=== PATIENT | male | born 1950 | race Caucasian/White ===

== ENCOUNTER 2018-01-13 15:47 | Inpatient (IN) ==
[2018-01-13] MEDS ORDERED: NICOTINE POLACRILEX 4 MG BC PRN (19:51)
[2018-01-13] MEDS ORDERED: traMADol 50 MG TABLET PO PRN (19:53)
[2018-01-13] MEDS ORDERED: Naloxone 0.4 MG/ML INJ IVP PRN (19:53)
[2018-01-13] MEDS ORDERED: Acetaminophen 325 MG TABLET PO PRN (19:53)
[2018-01-13] MEDS ORDERED: Dextrose Gel 15 GM/37.5 ML TUBE PO PRN ×2 (19:57)
[2018-01-13] MEDS ORDERED: D5% in Water 1,000 ML IVC PRN (19:57)
[2018-01-13] MEDS ORDERED: Pantoprazole 80 MG in 0.9 % Sodium Chloride 50 ML IVPB ONE (19:57)
[2018-01-13] MEDS ORDERED: *HR* Dextrose 50 % in Water (Syg) 50 ML SYRINGE IVP PRN (19:57)
--- NOTE | 2018-01-13 20:26 | Internal Med History&Physical ---
<Brianna Armas - Last Filed: 01/13/18 21:05> Date of Encounter: 01/13/18 Time of Encounter: 20:10 Internal Medicine - H&P: HPI Admitted From: Home Plans for Post Hospital Care: Home History of present illness: Mr. Sanon is a 67 year old male with past medical history significant for CAD status post CABG, hypertension, hyperlipidemia, diabetes, and COPD transferred from [facility] for multiple complaints. He is a smoker, recently was diagnosed with COPD, and started on steroids and albuterol inhaler by PCP. Today he felt had some trouble breathing, family prompted him to seek medical assistance. At the [facility], his vital signs were found to be stable, however labs revealed severe anemia with hemoglobin 6.6, FOBT positive. troponin was elevated at 1.7. EKG revealed diffused ST-T depression. CT abdomen with IV contrast revealed no acute abnormalities besides a gallbladder stone, diverticulosis,and abdominal aortic aneurysm. He denies fever, chills, cough, chest pain, palpitation, syncope, and lightheadedness. He has no abdominal pain, nausea/vomiting, diarrhea, or bloody stool. He received 1 unit PRBC blood transfusion prior to transferring to [facility] for further management. Upon arrival to this hospital, his vital signs were stable. O2 sats 95% on room air. Stat chest x-ray and labs were ordered. GI and cardio were counseled. Past Med Surg Social Fam HX - Past Medical History Medical history: diabetes, hyperlipidemia, hypertension Psychiatric history: no psych history - Past Surgical History Surgical History: coronary bypass (CABG) - Social History Smoking Status: Former smoker Packs per day: 1 Alcohol use: none Drug use: none - Family History Mother Living Status: Age at : 86 Cause of : [place] Hx Family Cardiac Disorders: Yes Hx Family Respiratory Disorders: No Hx Family Cancer: Yes Hx Family GI Disorders: Yes Hx Family Endocrine Disorder: Yes Hx Family Neurologic Disorders: No Hx Family Medical Disorders: Yes Internal Medicine - H&P: Meds Albuterol Sulfate [Proair Hfa] 1 - 2 puff IH Q4H 01/13/18 [History] Ascorbate Calcium [Vitamin C] 500 mg PO DAILY 01/13/18 [History] Aspirin [Ecotrin] 325 mg PO DAILY 01/13/18 [History] Ferrous Sulfate [Iron] 650 mg PO 3XW 01/13/18 [History] Lisinopril [Zestril] 40 mg PO DAILY 01/13/18 [History] Multivitamin [One Daily Essential] 1 each PO DAILY 01/13/18 [History] Nicotine Patch [Nicoderm] 21 mg TD DAILY 01/13/18 [History] Nicotine Polacrilex [Nicotine Gum] 4 mg BC PRN PRN 01/13/18 [History] [place]-3/Dha/Epa/Fish Oil [Fish Oil [place]-3 EC 1,200 mg] 1 cap PO DAILY 01/13/18 [History] hydroCHLOROthiazide [Hydrochlorothiazide] 25 mg PO DAILY 01/13/18 [History] metFORMIN [Glucophage] 500 mg PO BIDWM 01/13/18 [History] predniSONE [PredniSONE] 20 mg PO DAILY 01/13/18 [History] All Systems PM: A 10-system review of systems was performed and is negative for pertinent findings except as documented above in the HPI. Review of systems: REVIEW OF SYSTEMS: CONSTITUTIONAL: No weight loss, fever, chills, weakness or fatigue. HEENT: Eyes: No visual loss, blurred vision, double vision or yellow sclerae. Ears, Nose, Throat: No hearing loss, sneezing, congestion, runny nose or sore throat. SKIN: No rash or itching. CARDIOVASCULAR: see HPI. RESPIRATORY: see HPI. GASTROINTESTINAL: see HPI. GENITOURINARY: No dysuria, urgency, or frequency. NEUROLOGICAL: No headache, dizziness, syncope, paralysis, ataxia, numbness or tingling in the extremities. No change in bowel or bladder control. MUSCULOSKELETAL: No muscle, back pain, joint pain or stiffness. HEMATOLOGIC: No anemia, bleeding or bruising. LYMPHATICS: No enlarged nodes. No history of splenectomy. PSYCHIATRIC: No history of depression or anxiety. ENDOCRINOLOGIC: No reports of sweating, cold or heat intolerance. No polyuria or polydipsia. - Constitutional Vitals: Temp Pulse Resp BP Pulse Ox 98.2 F 83 15 148/80 93 01/13/18 18:15 01/13/18 18:15 01/13/18 18:15 01/13/18 18:15 01/13/18 18:15 Exam: PHYSICAL EXAMINATION: GENERAL APPEARANCE: The patient is alert, oriented and in no acute distress. HEENT: Head is normocephalic. The sinuses are nontender. Pupils are equal and reactive. The nares are patent. Oropharynx clear without lesions. NECK: Supple without lymphadenopathy. HEART: Regular rate and rhythm. LUNGS: No crackles or wheezes are heard. ABDOMEN: Soft, nontender, nondistended with good bowel sounds heard. Inguinal area is normal. EXTREMITIES: Without cyanosis, clubbing or edema. NEUROLOGICAL: Gross nonfocal. SKIN: Warm and dry without any rash. Internal Med - H&P Results - Labs CBC & Chem 7: 01/13/18 20:16 01/13/18 20:16 - Assessment and plan (1) NSTEMI (non-ST elevated myocardial infarction) Current Visit: Yes Status: Acute Assessment and plan: - Hx CAD status post CABG about 20 years ago, risk factors including hypertension, hyperlipidemia, diabetes, and smoking. - EKG revealed diffuse ST-T depression, troponin was significantly elevated. - Given severe anemia, it is likely type II [place] due to demand/supply mismatch, however underlying severe coronary artery disease could also coexisted and contributed to. - add Metoprolol, control BP, transfuse if Hgb<8. Nitro PRN for chest pain, EKG as needed. - Hold Asa, and heparin gtt not started due to GI bleeding. - Cardiology consulted, appreciate help. (2) GI bleeding Current Visit: Yes Status: Acute Assessment and plan: - Stool positive for occult blood. Reveived one unit PRBC at outside hospital. - PPI with IV protonix started. NPO after midnight. - H/H q6h, transfuse if hgb <6. - GI consult, appreciate help. Qualifiers: GI bleed type/associated pathology: unspecified gastrointestinal hemorrhage type Qualified Code(s): K92.2 - Gastrointestinal hemorrhage, unspecified (3) Severe anemia Current Visit: Yes Status: Acute Assessment and plan: - see above. (4) CKD (chronic kidney disease) Current Visit: No Status: Chronic Assessment and plan: - unknown baseline Cr. will monitor. Qualifiers: Chronic kidney disease stage: stage 3 (moderate) Qualified Code(s): N18.3 - Chronic kidney disease, stage 3 (moderate) (5) HTN (hypertension) Current Visit: No Status: Chronic Assessment and plan: - Continue home meds, add BB, monitor BP and adjust dose if indicated. Qualifiers: Hypertension type: essential hypertension Qualified Code(s): I10 - Essential (primary) hypertension (6) Hyperlipidemia Current Visit: No Status: Chronic Assessment and plan: - continue home meds. Qualifiers: Hyperlipidemia type: unspecified Qualified Code(s): E78.5 - Hyperlipidemia , unspecified (7) Diabetes mellitus Current Visit: No Status: Chronic Assessment and plan: - Hold Metformin, add insulin SS. Qualifiers: Diabetes mellitus type: type 2 Diabetes mellitus intermediate accountant insulin use: without detention use Diabetes mellitus complication status: with unspecified complications Qualified Code(s): E11.8 - Type 2 diabetes mellitus with unspecified complications (8) COPD (chronic obstructive pulmonary disease) Current Visit: No Status: Chronic Assessment and plan: - continue home meds. Qualifiers: COPD type: unspecified COPD Qualified Code(s): J44.9 - Chronic obstructive pulmonary disease, unspecified (9) CAD (coronary artery disease) Current Visit: No Status: Chronic Assessment and plan: - Hold asa for GI bleeding. - see above. Qualifiers: Coronary Disease-Associated Artery/Lesion type: bypass graft [place] vs. transplanted heart: [place] heart Associated angina: without angina Qualified Code(s): I25.810 - Atherosclerosis of coronary artery bypass graft(s) without angina pectoris - Time Spent With Patient Total time spent is greater than 50% in coordination of care (as documented) at patient's floor/unit and/or counseling patient: Greater than 35 minutes <Audrey Baird - Last Filed: 01/13/18 23:03> Date of Encounter: 01/13/18 Internal Medicine - H&P: HPI History of present illness: Mr. Sanon is a 67 year old male All Systems PM: A 10-system review of systems was performed and is negative for pertinent findings except as documented above in the HPI. - Constitutional Vitals: Temp Pulse Resp BP Pulse Ox 98.1 F 77 18 132/67 95 01/13/18 18:50 01/13/18 18:50 01/13/18 20:46 01/13/18 18:50 01/13/18 20:46 Internal Med - H&P Results - Labs CBC & Chem 7: 01/13/18 21:27 01/13/18 20:16 Labs: Short CBC 01/13/18 01/13/18 Range/Units 20:16 21:27 WBC 16.1 H (4.3-11.1) K/mcL Hgb 7.5 L 7.0 L (12.9-16.9) g/dL Hct 23.2 L 21.8 L (37.5-50.1) % Plt Count 327 (140-400) K/mcL BMP 01/13/18 20:16 Sodium 131 L Potassium 4.5 Chloride 96 L Carbon Dioxide 26 BUN 53 H Creatinine 1.89 H Glucose 198 H Calcium 8.9 Cardiac Enzymes 01/13/18 Range/Units 20:16 Troponin I 2.15 H* (< 0.04) ng/mL - Impressions ITS Impressions Chest X-Ray 01/13/18 19:50 IMPRESSION: 1. Cardiomegaly. 2. Calcific atherosclerosis aorta. 3. Scar or subsegmental atelectasis medial left lung base. 4. Status post CABG. D/ / Raj Ho / Raj Ho Interpreting Provider: Raj Ho - Attending Attestation I have personally performed a face to face evaluation on this patient. I have reviewed and agree with the care plan provided by MOO Armas . History and Exam by me shows: Mr. Sanon is a 67 year old male with past medical history significant for CAD status post CABG, hypertension, hyperlipidemia, diabetes, and COPD transferred from [facility] with severe anemia, GI bleed and elevated troponin. He denied any CP. 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 Gen: A, A, O X 3 Chest: Diminished BS b/l Heart: S1S2 + RRR No murmurs Abd: Soft, NT a/p 1. Acute anemia - blood loss 2. Acute possible upper GI Bleed transfuse 2 U PRBC Lasix in between close monitor Hb PPI BID Scheduled for EGD in AM 3. Acute NSTEMI due to demand ischemia unable to start pt on Heparin due to anemia, GI bleed Held ASA too Card consulted on BB, ACEI - Assessment and plan (1) Severe anemia Current Visit: Yes Status: Acute (2) CKD (chronic kidney disease) Current Visit: No Status: Chronic Qualifiers: Chronic kidney disease stage: stage 3 (moderate) Qualified Code(s): N18.3 - Chronic kidney disease, stage 3 (moderate) (3) HTN (hypertension) Current Visit: No Status: Chronic Qualifiers: Hypertension type: essential hypertension Qualified Code(s): I10 - Essential (primary) hypertension (4) Diabetes mellitus Current Visit: No Status: Chronic Qualifiers: Diabetes mellitus type: type 2 Diabetes mellitus intermediate accountant insulin use: without intermediate accountant use Diabetes mellitus complication status: with unspecified complications Qualified Code(s): E11.8 - Type 2 diabetes mellitus with unspecified complications (5) COPD (chronic obstructive pulmonary disease) Current Visit: No Status: Acute Qualifiers: COPD type: unspecified COPD Qualified Code(s): J44.9 - Chronic obstructive pulmonary disease, unspecified (6) CAD (coronary artery disease) Current Visit: No Status: Chronic Qualifiers: Coronary Disease-Associated Artery/Lesion type: bypass graft [place] vs. transplanted heart: [place] heart Associated angina: without angina Qualified Code(s): I25.810 - Atherosclerosis of coronary artery bypass graft(s) without angina pectoris (7) Abdominal aortic aneurysm Current Visit: Yes Status: Chronic Qualifiers: Qualified Code(s): I71.4 - Abdominal aortic aneurysm, without rupture (8) Cholelithiasis Current Visit: Yes Status: Chronic Qualifiers: Qualified Code(s): K80.20 - Calculus of gallbladder without cholecystitis without obstruction - Time Spent With Patient Total time spent is greater than 50% in coordination of care (as documented) at patient's floor/unit and/or counseling patient:
[2018-01-13 20:28] LABS: Hematocrit 23.2 % (37.5-50.1); Hemoglobin 7.5 g/dL (12.9-16.9); Mean Corpuscular HGB Conc 32.3 g/dL (31.6-35.5); Mean Corpuscular Volume 89.6 fL (83.0-100.0); Mean Platelet Volume 10.7 fL (9.4-12.4); Platelet Count 327 K/mcL (140-400); Red Blood Count 2.59 M/mcL (4.19-5.50); Red Cell Distribution Width 14.3 % (11.5-14.5)
[2018-01-13 20:48] LABS: Calcium 8.9 mg/dL (8.6-10.3); Chol/HDL Ratio 2.8 (0-4.9); Potassium 4.5 mEq/L (3.5-5.1)
[2018-01-13] MEDS ORDERED: Nitroglycerin 0.4 MG TAB.SUBL SL PRN (20:53)
[2018-01-13] MEDS: Nicotine 21 MG PATCH.TD24 TD SCH (21:19)
--- NOTE | 2018-01-13 21:38 | Internal Medicine Consult Note ---
Date of Encounter: 01/13/18 Time of Encounter: 21:35 - Assessment and Plan (1) Severe anemia Current Visit: Yes Status: Acute Assessment and plan: He reports being able to give blood within the last month, therefore I suspect this drop in hemoglobin is somewhat acute. I am concerned that the diarrhea and crampiness was actually melena and blood moving through the lower GI tract. Risk factors for bleeding to include aspirin therapy and taking fish oil. Certainly this could be ulcer disease as the most worrisome potential differential at this time. AVMs are less likely. Plan is to provide upper endoscopy in the morning with risks and benefits being discussed today, he has signed consent. If that is negative he will need colonoscopy. I do agree with transfusions at least above 8 given some mild troponin elevation which is more consistent with ischemic demand than true infarction. Do agree with current PPI therapy (2) CAD (coronary artery disease) Current Visit: No Status: Chronic Qualifiers: Coronary Disease-Associated Artery/Lesion type: bypass graft [place] vs. transplanted heart: [place] heart Associated angina: without angina Qualified Code(s): I25.810 - Atherosclerosis of coronary artery bypass graft(s) without angina pectoris (3) CKD (chronic kidney disease) Current Visit: No Status: Chronic Assessment and plan: It is possible that some of the anemia is a result of some chronic kidney disease. We have no previous labs on him, we will have to see over time his creatinine does. Qualifiers: Chronic kidney disease stage: stage 3 (moderate) Qualified Code(s): N18.3 - Chronic kidney disease, stage 3 (moderate) (4) COPD (chronic obstructive pulmonary disease) Current Visit: No Status: Acute Assessment and plan: Does require beta agonist, pulmonary toilet while here. Qualifiers: COPD type: unspecified COPD Qualified Code(s): J44.9 - Chronic obstructive pulmonary disease, unspecified (5) Diabetes mellitus Current Visit: No Status: Chronic Qualifiers: Diabetes mellitus type: type 2 Diabetes mellitus fpc insulin use: without fpc use Diabetes mellitus complication status: with unspecified complications Qualified Code(s): E11.8 - Type 2 diabetes mellitus with unspecified complications (6) HTN (hypertension) Current Visit: No Status: Chronic Qualifiers: Hypertension type: essential hypertension Qualified Code(s): I10 - Essential (primary) hypertension (7) Abdominal aortic aneurysm Current Visit: Yes Status: Chronic Qualifiers: Qualified Code(s): I71.4 - Abdominal aortic aneurysm, without rupture (8) Cholelithiasis Current Visit: Yes Status: Chronic Qualifiers: Qualified Code(s): K80.20 - Calculus of gallbladder without cholecystitis without obstruction Internal Medicine - CN: HPI - Data of Consult Patient: new to practice Consult date: 01/13/18 Requesting Physician: Sly Ramos DO - Consult Narrative Reason for consult: Anemia, possible GI Bleeding History of present illness: Mr. Sanon is a 67 year old male currently being seen for consultation from the hospitalist service. This gentleman presented from [facility] today with elevated troponin, along with significant anemia. He admits about a 4 days ago having a bout of significant lower abdominal cramping and diarrhea, he is color blind, cannot see if it was bloody or black and tarry. This lasted all morning, he subsequently felt better until today were the same thing happened and reported to [facility]. He admits having some lightheadedness but no near-syncope or syncope no diaphoresis. He does admit that he and his doctor in the last 5 days have recently been working on his new diagnosis of COPD and from a breathing standpoint feeling much better with what appears to be an inhaled beta agonist. He has not had previous upper or lower endoscopy. He admits 3 months ago having a negative Cologuard test. No nausea, or vomiting. No reflux, no nonsteroidal usage and no alcohol use. His weight has been stable Past Med Surg Social Fam HX - Past Medical History Medical history: COPD, coronary artery disease, diabetes, hyperlipidemia, hypertension Psychiatric history: no psych history - Past Surgical History Surgical History: coronary bypass (CABG) - Social History Smoking Status: Former smoker Packs per day: 1 Alcohol use: none Drug use: none - Family History Mother Living Status: Age at : 86 Cause of : [place] Hx Family Cardiac Disorders: Yes Hx Family Respiratory Disorders: No Hx Family Cancer: Yes Hx Family GI Disorders: Yes Hx Family Endocrine Disorder: Yes Hx Family Neurologic Disorders: No Hx Family Medical Disorders: Yes Father Adopted: No Living Status: Cause of : Heart disease - Constitutional Constitutional: no anorexia, no chills, no fatigue, no fever(s), no falls - Cardiovascular Cardiovascular ROS IM: dyspnea on exertion, lightheadedness, no chest pain, no diaphoresis, no irregular heart rhythm, no syncope - Respiratory Respiratory: cough, wheezing, chest congestion, no hemoptysis, no pain with cough - Gastrointestinal Gastrointestinal: abdominal pain, bloating, cramping, diarrhea, loose stools, no heartburn, no nausea, no vomiting - Musculoskeletal Musculoskeletal ROS IM: no arthralgias, no muscle cramps, no muscle weakness - Neurological Neurological ROS: no abnormal gait, no focal weakness, no memory loss, no weakness Internal Medicine - CN: Meds Albuterol Sulfate [Proair Hfa] 1 - 2 puff IH Q4H 01/13/18 [History] Ascorbate Calcium [Vitamin C] 500 mg PO DAILY 01/13/18 [History] Aspirin [Ecotrin] 325 mg PO DAILY 01/13/18 [History] Ferrous Sulfate [Iron] 650 mg PO 3XW 01/13/18 [History] Lisinopril [Zestril] 40 mg PO DAILY 01/13/18 [History] Multivitamin [One Daily Essential] 1 each PO DAILY 01/13/18 [History] Nicotine Patch [Nicoderm] 21 mg TD DAILY 01/13/18 [History] Nicotine Polacrilex [Nicotine Gum] 4 mg BC PRN PRN 01/13/18 [History] [place]-3/Dha/Epa/Fish Oil [Fish Oil [place]-3 EC 1,200 mg] 1 cap PO DAILY 01/13/18 [History] hydroCHLOROthiazide [Hydrochlorothiazide] 25 mg PO DAILY 01/13/18 [History] metFORMIN [Glucophage] 500 mg PO BIDWM 01/13/18 [History] predniSONE [PredniSONE] 20 mg PO DAILY 01/13/18 [History] 3 Allergy/AdvReac Type Severity Reaction Status Date / Time No Known Allergies Allergy Verified 01/13/18 21:28 Internal Medicine - CN: Exam - Constitutional Vitals: Temp Pulse Resp BP Pulse Ox 98.1 F 77 18 132/67 95 01/13/18 18:50 01/13/18 18:50 01/13/18 20:46 01/13/18 18:50 01/13/18 20:46 General appearance IM: Present: A&O X 3, pleasant, no acute distress, obese, answers questions appropriately. Absent: loss of weight - Eye Eye exam: Present: PERRL, conjuntiva pink, sclera anicteric - ENT ENT exam: Present: mucous membranes moist - Neck Neck exam general surgery: Present: full ROM, supple, trachea midline - Respiratory Respiratory exam: Present: decreased breath sounds, prolonged expiratory phase, rhonchi, wheezes Additional comments: Peripheral of the lungs with some CHANGE mild expiratory wheeze, no tachypnea. - Cardiovascular Cardiovascular exam IM: Present: RRR, +S1, +S2. Absent: JVD, systolic murmur, tachycardia - GI/Abdominal GI/Abdominal exam IM: Present: normal bowel sounds, soft, no peritoneal signs. Absent: rebound, rigid, splenomegaly, tenderness - Rectal Rectal exam: Present: deferred Internal Medicine - CN: Reslt - Labs CBC & Chem 7: 01/13/18 20:16 01/13/18 20:16 Labs: Short CBC 01/13/18 Range/Units 20:16 WBC 16.1 H (4.3-11.1) K/mcL Hgb 7.5 L (12.9-16.9) g/dL Hct 23.2 L (37.5-50.1) % Plt Count 327 (140-400) K/mcL BMP 01/13/18 20:16 Sodium 131 L Potassium 4.5 Chloride 96 L Carbon Dioxide 26 BUN 53 H Creatinine 1.89 H Glucose 198 H Calcium 8.9 Cardiac Enzymes 01/13/18 Range/Units 20:16 Troponin I 2.15 H* (< 0.04) ng/mL - Impressions Impressions Chest X-Ray 01/13/18 19:50 IMPRESSION: 1. Cardiomegaly. 2. Calcific atherosclerosis aorta. 3. Scar or subsegmental atelectasis medial left lung base. 4. Status post CABG. D/ / Raj Ho / Raj Ho Interpreting Provider: Raj Ho Consult Discharge Plan - Plan Referrals: Lazaro Panda DO [Primary Care Provider] -
[2018-01-13 21:40] LABS: Hematocrit 21.8 % (37.5-50.1)
[2018-01-13] MEDS: Insulin LISPRO 300 UNITS/3 ML VIAL SQ SCH ×2 (21:47)
[2018-01-13] MEDS ORDERED: Furosemide 20 MG/2 ML VIAL IVP ONE (22:06)
[2018-01-14] MEDS ORDERED: 0.9 % Sodium Chloride 500 ML ONE (00:01)
[2018-01-14 05:06] LABS: Hemoglobin 8.1 g/dL (12.9-16.9)
[2018-01-14] MEDS: Pantoprazole 40 MG VIAL IVP SCH ×2 (06:25→16:55)
[2018-01-14 08:33] LABS: Basophils % 0.1 %; Eosinophils % 0.3 %; Hematocrit 25.1 % (37.5-50.1); Hemoglobin 8.2 g/dL (12.9-16.9); Immature Granulocytes % 0.8 % (0-4); Lymphocytes # 1.2 K/mcL (0.6-4.6); Mean Corpuscular HGB Conc 32.7 g/dL (31.6-35.5); Mean Corpuscular Hemoglobin 29.6 pg (28.0-33.3); Mean Corpuscular Volume 90.6 fL (83.0-100.0); Monocytes # 1.3 K/mcL (0.0-1.3); Monocytes % 9.7 %; Neutrophils # 10.7 K/mcL (1.6-8.9); Nucleated Red Blood Cells 0.1 /100 WBC (0); Platelet Count 303 K/mcL (140-400); Red Blood Count 2.77 M/mcL (4.19-5.50); Red Cell Distribution Width 14.3 % (11.5-14.5); Segmented Neutrophils % 80.1 %
[2018-01-14 08:38] LABS: Calcium 8.4 mg/dL (8.6-10.3); Magnesium 1.9 mg/dL (1.6-2.6); Potassium 4.2 mEq/L (3.5-5.1)
[2018-01-14 08:53] LABS: Troponin I 2.74 ng/mL (< 0.04)
[2018-01-14] MEDS ORDERED: predniSONE 20 MG TABLET PO SCH (09:00)
[2018-01-14] MEDS ORDERED: hydroCHLOROthiazide 25 MG TABLET PO SCH (09:00)
[2018-01-14] MEDS: Insulin LISPRO 300 UNITS/3 ML VIAL SQ SCH ×4 (09:06→21:26)
[2018-01-14] MEDS: Nicotine 21 MG PATCH.TD24 TD SCH (09:12)
[2018-01-14] MEDS: Lisinopril 20 MG TABLET PO SCH (09:12)
[2018-01-14] MEDS: Multivit/Ca/Min/Fe/FA 1 TAB TABLET PO SCH (09:12)
[2018-01-14] MEDS: Ascorbic Acid 500 MG TABLET PO SCH (09:12)
[2018-01-14] MEDS: FISH OIL PO SCH (09:20)
[2018-01-14] MEDS: OMEGA PO SCH (09:20)
[2018-01-14] MEDS: EPA PO SCH (09:20)
[2018-01-14] MEDS: DHA PO SCH (09:20)
[2018-01-14] MEDS ORDERED: *HR* Midazolam HCl 5 MG/5 ML VIAL IVP ONE ×2 (10:51→11:11)
[2018-01-14] MEDS ORDERED: *HR* FentaNYL (PF) 100 MCG/2 ML VIAL ONE (10:51)
[2018-01-14] MEDS ORDERED: Tetracaine/Benzocaine/Butamben 200MG/SPRAY (100SPY/BOT) MM ONE (11:11)
[2018-01-14] MEDS ORDERED: *HR* FentaNYL (PF) 100 MCG/2 ML VIAL IVP ONE (11:11)
[2018-01-14] MEDS ORDERED: Simethicone 40 MG/0.6 ML MLS IR ONE (11:11)
--- NOTE | 2018-01-14 11:11 | Pre-Sedation Evaluation ---
Pre-sedation evaluation - Pre-sedation checklist Date of procedure: 01/14/18 Procedure: EGD Recent Vitals: Last Vital Signs Temp 98.1 F 01/14/18 10:48 Pulse 62 01/14/18 10:48 Resp 16 01/14/18 10:48 BP 135/59 01/14/18 10:48 Pulse Ox 98 01/14/18 10:45 H&P (including ROS) documented in medical record: Yes Previous reaction to sedatives/anesthetics: No Dietary Status: NPO after Midnight Dentition: No loose teeth or bridges Possible difficult airway: No ASA Classification *see protocol: CLASS III-Severe systemic disease
--- NOTE | 2018-01-14 11:44 | Internal Medicine Consult Note ---
Date of Encounter: 01/14/18 Time of Encounter: 11:42 - Assessment and Plan (1) Duodenal ulcer Current Visit: Yes Status: Acute Assessment and plan: Will cont. PPI and start Carafate. High suspicion of H. Pylori. Will await pathology and ABRIL test. Ulcer base biopsied. Would hold ASA still at this time Will start Iron therapy. (2) Severe anemia Current Visit: Yes Status: Acute (3) CAD (coronary artery disease) Current Visit: No Status: Chronic Qualifiers: Coronary Disease-Associated Artery/Lesion type: bypass graft [place] vs. transplanted heart: [place] heart Associated angina: without angina Qualified Code(s): I25.810 - Atherosclerosis of coronary artery bypass graft(s) without angina pectoris (4) CKD (chronic kidney disease) Current Visit: No Status: Chronic Qualifiers: Chronic kidney disease stage: stage 3 (moderate) Qualified Code(s): N18.3 - Chronic kidney disease, stage 3 (moderate) (5) COPD (chronic obstructive pulmonary disease) Current Visit: No Status: Acute Qualifiers: COPD type: unspecified COPD Qualified Code(s): J44.9 - Chronic obstructive pulmonary disease, unspecified (6) Diabetes mellitus Current Visit: No Status: Chronic Qualifiers: Diabetes mellitus type: type 2 Diabetes mellitus custodial insulin use: without intermediate school teacher use Diabetes mellitus complication status: with unspecified complications Qualified Code(s): E11.8 - Type 2 diabetes mellitus with unspecified complications (7) HTN (hypertension) Current Visit: No Status: Chronic Qualifiers: Hypertension type: essential hypertension Qualified Code(s): I10 - Essential (primary) hypertension (8) Abdominal aortic aneurysm Current Visit: Yes Status: Chronic Qualifiers: Qualified Code(s): I71.4 - Abdominal aortic aneurysm, without rupture (9) Cholelithiasis Current Visit: Yes Status: Chronic Qualifiers: Qualified Code(s): K80.20 - Calculus of gallbladder without cholecystitis without obstruction (10) Blood loss anemia Current Visit: Yes Status: Acute Internal Medicine - CN: HPI - Data of Consult Requesting Physician: Mer John MD - Consult Narrative History of present illness: Mr. Sanon is a 67 year old male Past Med Surg Social Fam HX - Past Medical History Medical history: COPD, coronary artery disease, diabetes, hyperlipidemia, hypertension Psychiatric history: no psych history - Past Surgical History Surgical History: coronary bypass (CABG) - Social History Smoking Status: Former smoker Packs per day: 1 Alcohol use: none Drug use: none - Family History Mother Living Status: Age at : 86 Cause of : [place] Hx Family Cardiac Disorders: Yes Hx Family Respiratory Disorders: No Hx Family Cancer: Yes Hx Family GI Disorders: Yes Hx Family Endocrine Disorder: Yes Hx Family Neurologic Disorders: No Hx Family Medical Disorders: Yes Father Adopted: No Living Status: Cause of : Heart disease Internal Medicine - CN: Meds Albuterol Sulfate [Proair Hfa] 1 - 2 puff IH Q4H 01/13/18 [History] Ascorbate Calcium [Vitamin C] 500 mg PO DAILY 01/13/18 [History] Aspirin [Ecotrin] 325 mg PO DAILY 01/13/18 [History] Ferrous Sulfate [Iron] 650 mg PO 3XW 01/13/18 [History] Lisinopril [Zestril] 40 mg PO DAILY 01/13/18 [History] Multivitamin [One Daily Essential] 1 each PO DAILY 01/13/18 [History] Nicotine Patch [Nicoderm] 21 mg TD DAILY 01/13/18 [History] Nicotine Polacrilex [Nicotine Gum] 4 mg BC PRN PRN 01/13/18 [History] [place]-3/Dha/Epa/Fish Oil [Fish Oil [place]-3 EC 1,200 mg] 1 cap PO DAILY 01/13/18 [History] hydroCHLOROthiazide [Hydrochlorothiazide] 25 mg PO DAILY 01/13/18 [History] metFORMIN [Glucophage] 500 mg PO BIDWM 01/13/18 [History] predniSONE [PredniSONE] 20 mg PO DAILY 01/13/18 [History] Atorvastatin [Lipitor] 40 mg PO HS 01/14/18 [History] 3 Allergy/AdvReac Type Severity Reaction Status Date / Time No Known Allergies Allergy Verified 01/13/18 21:28 Internal Medicine - CN: Exam - Constitutional Vitals: Temp Pulse Resp BP Pulse Ox 98.1 F 71 18 150/71 98 01/14/18 11:33 01/14/18 11:33 01/14/18 11:33 01/14/18 11:33 01/14/18 11:33 Internal Medicine - CN: Reslt - Labs CBC & Chem 7: 01/14/18 07:54 01/14/18 07:54 Labs: Short CBC 01/13/18 01/13/18 01/14/18 Range/Units 20:16 21:27 04:38 WBC 16.1 H (4.3-11.1) K/mcL Hgb 7.5 L 7.0 L 8.1 L (12.9-16.9) g/dL Hct 23.2 L 21.8 L 25.0 L (37.5-50.1) % Plt Count 327 (140-400) K/mcL Neutrophils # (1.6-8.9) K/mcL 01/14/18 Range/Units 07:54 WBC 13.4 H (4.3-11.1) K/mcL Hgb 8.2 L (12.9-16.9) g/dL Hct 25.1 L (37.5-50.1) % Plt Count 303 (140-400) K/mcL Neutrophils # 10.7 H (1.6-8.9) K/mcL BMP 01/13/18 01/14/18 20:16 07:54 Sodium 131 L 135 L Potassium 4.5 4.2 Chloride 96 L 97 L Carbon Dioxide 26 33 H BUN 53 H 50 H Creatinine 1.89 H 1.93 H Glucose 198 H 161 H Calcium 8.9 8.4 L Cardiac Enzymes 01/13/18 01/14/18 01/14/18 Range/Units 20:16 00:31 04:38 Troponin I 2.15 H* 2.38 H* 3.09 H* (< 0.04) ng/mL 01/14/18 Range/Units 07:54 Troponin I 2.74 H* (< 0.04) ng/mL - Impressions Impressions Chest X-Ray 01/13/18 19:50 IMPRESSION: 1. Cardiomegaly. 2. Calcific atherosclerosis aorta. 3. Scar or subsegmental atelectasis medial left lung base. 4. Status post CABG. D/ / Raj Ho / Raj Ho Interpreting Provider: Raj Ho Consult Discharge Plan - Plan Referrals: Lazaro Panda DO [Primary Care Provider] -
[2018-01-14] MEDS: Sucralfate 1 GM TABLET PO SCH ×3 (12:41→21:19)
[2018-01-14 13:02] LABS: Hematocrit 24.9 % (37.5-50.1)
[2018-01-14 15:30] LABS: Hematocrit 25.7 % (37.5-50.1); Hemoglobin 8.2 g/dL (12.9-16.9)
--- NOTE | 2018-01-14 15:40 | Cardiology Consult Note ---
<Silvio Horan - Last Filed: 01/14/18 15:44> Date of Encounter: 01/14/18 Time of Encounter: 15:39 Assessment and Plan (1) NSTEMI (non-ST elevated myocardial infarction) Current Visit: Yes Status: Acute Troponin elevation up to 3.09 in the setting of GI bleed. NSTEMI vs type II [place]. Currently not a candidate for invasive evaluation with acute GI bleed. Check TTE. Possible LHC when stable from bleeding and renal standpoint. No previous labs to compare kidney function. Denies history of CAD. No heparin gtt due to bleeding. Start asa when felt to be safe from bleeding standpoint. Continue statin and bb. (2) GI bleeding Current Visit: Yes Status: Acute EGD shows non-bleeding duodenal ulcer. Hgb 6.8 on admit. s/p 1 unit PRBC. Hgb 8.2. Patient reports taking up to 10 aspirins a day for arthritis pain. Recommended to take tylenol for pain. Hospitalist following. Qualifiers: GI bleed type/associated pathology: unspecified gastrointestinal hemorrhage type Qualified Code(s): K92.2 - Gastrointestinal hemorrhage, unspecified (3) CAD (coronary artery disease) Current Visit: No Status: Chronic H/o remote CABG. No recent work-up. WIll consider LHC during his stay. Qualifiers: Coronary Disease-Associated Artery/Lesion type: bypass graft [place] vs. transplanted heart: [place] heart Associated angina: without angina Qualified Code(s): I25.810 - Atherosclerosis of coronary artery bypass graft(s) without angina pectoris Discussion w patient/family: The assessment and plan as outlined above was discussed with the patient and/or family members who expressed understanding and agreement. All questions were answered. Thank you for involving us in the care of your patient. Please call with any questions. History of Present Illness Consult date: 01/14/18 Requesting physician: Mer John Consult reason: NSTEMI Chief complaint: diarrhea, weakness, SOB History of present illness: Mr. Sanon is a 67 year old male with past medical history of CAD s/p CABG, HTN, HLD, DM type II, and COPD who presented with increasing weakness and SOB. he was found to have HGB 6.8. Hgb 14 three weeks ago when he donated blood. He did notice diarrhea over the past week. 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 This morning he underwent upper endoscopy and was found to have a duodenal ulcer with no stigmata of bleeding. Cardiology consulted for elevated troponin. He denies chest pain. He reports over the past six months he noticed increasing dyspnea on exertion. States he was unofficially diagnosed with COPD. Denies recent cardiac work-up. Past Med Surg Social Fam HX - Past Medical History Medical history: COPD, coronary artery disease, diabetes, hyperlipidemia, hypertension Psychiatric history: no psych history - Past Surgical History Surgical History: coronary bypass (CABG) - Social History Smoking Status: Former smoker Packs per day: 1 Alcohol use: none Drug use: none - Family History Mother Living Status: Age at : 86 Cause of : [place] Hx Family Cardiac Disorders: Yes Hx Family Respiratory Disorders: No Hx Family Cancer: Yes Hx Family GI Disorders: Yes Hx Family Endocrine Disorder: Yes Hx Family Neurologic Disorders: No Hx Family Medical Disorders: Yes Father Adopted: No Living Status: Cause of : Heart disease Medications and Allergies Albuterol Sulfate [Proair Hfa] 1 - 2 puff IH Q4H 01/13/18 [History] Ascorbate Calcium [Vitamin C] 500 mg PO DAILY 01/13/18 [History] Aspirin [Ecotrin] 325 mg PO DAILY 01/13/18 [History] Ferrous Sulfate [Iron] 650 mg PO 3XW 01/13/18 [History] Lisinopril [Zestril] 40 mg PO DAILY 01/13/18 [History] Multivitamin [One Daily Essential] 1 each PO DAILY 01/13/18 [History] Nicotine Patch [Nicoderm] 21 mg TD DAILY 01/13/18 [History] Nicotine Polacrilex [Nicotine Gum] 4 mg BC PRN PRN 01/13/18 [History] [place]-3/Dha/Epa/Fish Oil [Fish Oil [place]-3 EC 1,200 mg] 1 cap PO DAILY 01/13/18 [History] hydroCHLOROthiazide [Hydrochlorothiazide] 25 mg PO DAILY 01/13/18 [History] metFORMIN [Glucophage] 500 mg PO BIDWM 01/13/18 [History] predniSONE [PredniSONE] 20 mg PO DAILY 01/13/18 [History] Atorvastatin [Lipitor] 40 mg PO HS 01/14/18 [History] 3 Allergy/AdvReac Type Severity Reaction Status Date / Time No Known Allergies Allergy Verified 01/13/18 21:28 All Systems Review: The remainder of the systems were reviewed and are negative Physical Examination Vital Signs, Last 4 Hours Temp Pulse Resp BP Pulse Ox 01/14/18 15:17 97.8 F 60 15 138/62 95 01/14/18 12:30 97.8 F 60 15 107/45 91 General: Conversant, No Apparent Distress, Other (Skin cool and moist) HEENT: Atraumatic, Normocephaly, Mucus Membranes Moist Neck: No JVD, Normal carotid pulses Cardiac: Reg Rate and Rhythm, Normal S1 and S2, No Murmur Lungs: Normal Breath Sounds, No Wheeze, Rales, Rhonchi Neuro: Alert and responsive, No focal deficits noted Abdomen: Soft, Non-Tender Skin: No rashes noted on visualized skin Musculoskeletal: No Chest Wall Tenderness Extremities: No Clubbing, No Cyanosis, Normal Pulses, Other (2+ ankle edema noted.) Results 01/14/18 12:15 01/14/18 07:54 Lab Results 01/13/18 01/13/18 01/13/18 20:16 20:16 20:16 WBC 16.1 H Hgb 7.5 L Hct 23.2 L Plt Count 327 Sodium 131 L Potassium 4.5 Chloride 96 L Carbon Dioxide 26 BUN 53 H Creatinine 1.89 H Glucose 198 H Calcium 8.9 Magnesium Troponin I 2.15 H* B-Natriuretic Peptide 01/13/18 01/13/18 01/13/18 20:16 20:16 21:27 WBC Hgb 7.0 L Hct 21.8 L Plt Count Sodium Potassium Chloride Carbon Dioxide BUN Creatinine Glucose Calcium Magnesium 2.0 Troponin I B-Natriuretic Peptide 276 H 01/14/18 01/14/18 01/14/18 00:31 04:38 04:38 WBC Hgb 8.1 L Hct 25.0 L Plt Count Sodium Potassium Chloride Carbon Dioxide BUN Creatinine Glucose Calcium Magnesium Troponin I 2.38 H* 3.09 H* B-Natriuretic Peptide 01/14/18 01/14/18 01/14/18 07:54 07:54 12:15 WBC 13.4 H Hgb 8.2 L 8.0 L Hct 25.1 L 24.9 L Plt Count 303 Sodium 135 L Potassium 4.2 Chloride 97 L Carbon Dioxide 33 H BUN 50 H Creatinine 1.93 H Glucose 161 H Calcium 8.4 L Magnesium 1.9 Troponin I 2.74 H* B-Natriuretic Peptide - Imaging and Cardiology Echo: pending - EKG Interpretation EKG results cardiology: personally reviewed (Sr with poor R wave progression. ST depression in the inferior and anteriolateral leads noted.) Consult Discharge Plan - Plan Referrals: Lazaro Panda, [Primary Care Provider] - <AugustBruno Luann - Last Filed: 01/15/18 10:21> Date of Encounter: 01/14/18 Time of Encounter: 17:30 - Attending Attestation #1 I have personally performed a face to face evaluation on this patient. I have reviewed and agree with the care plan. History and Exam by me shows: CC: fatigue, diarrhea, shortness of breath Pt reports five or six day history of increasing fatigue with exertion. Pt reports felt fine at rest, however became very tired with minimal exertion. He reports has had to rest with normal daily activities the last several days. HE also ecomes very short of breath with minimal exertionl. He was able to perform normal daily activities without complaint one week ago. He also reports smelly diarrhea over last several days. PMH: reviewed, includes CAD post CABG, COPD, type II diabetes, hyperlipidemia, hypertension and tobacco abuse. PE: Agree with above, with exception of mild epigastric tenderness to deep palpation, mild bilat basilar exp wheezes. IMP; 1. Acute GI bleed secondary to confirmed duodenal ulcer on EGD, bleeding likely cause of diarrhea, 2. Severe Anemia due to #1, lowest HB 6.8, has received transfusion to 8.2 3. Elevated troponin, multifactorial, due to part to demand ischemia with severe anemia, poor renal clearance with acute on chronic renal insuff, will need ischemic eval before discharge, not a candidate for anticoagulation at present 4. CAD - severe triple vessel CAD post CABG REC: 1. echocardiogram to eval EF, subsegmental wall motion abnormalities. 2. Resume ASA with 325 mg loading dose, continue at 81 mg q d when OK with GI. 3, will follow with you, further recs pending trending troponin, echo results. Assessment and Plan Discussion w patient/family: The assessment and plan as outlined above was discussed with the patient and/or family members who expressed understanding and agreement. All questions were answered. Thank you for involving us in the care of your patient. Please call with any questions. History of Present Illness History of present illness: Mr. Sanon is a 67 year old male All Systems Review: The remainder of the systems were reviewed and are negative Physical Examination Vital Signs, Last 4 Hours Temp Pulse Resp BP Pulse Ox 01/15/18 07:59 97.9 F 82 15 135/71 94 01/15/18 07:56 20 95 Results 01/15/18 03:05 01/14/18 07:54 Lab Results 01/14/18 01/14/18 01/14/18 12:15 14:42 21:00 Hgb 8.0 L 8.2 L 7.7 L Hct 24.9 L 25.7 L 24.6 L 01/15/18 03:05 Hgb 7.7 L Hct 24.2 L
--- NOTE | 2018-01-14 17:45 | Internal Med Progress Note ---
Date of Encounter: 01/14/18 Time of Encounter: 15:00 - Assessment and plan (1) Blood loss anemia Current Visit: Yes Status: Acute Assessment and plan: No previous labs available. Patient presented to the emergency room with symptomatic anemia, hemoglobin noted to be 6.6 with stool occult blood test positive. Hemoglobin improved to 8.2 status post 2 units PRBC transfusion. Workup for GI bleed ongoing. Continue to monitor hemoglobin closely. (2) GI bleeding Current Visit: Yes Status: Suspected Assessment and plan: GI on board. Underwent EGD today, which showed one cratered nonbleeding duodenal ulcer with no stigmata of bleeding. Continue PPI. Full liquid diet as tolerated. Qualifiers: GI bleed type/associated pathology: unspecified gastrointestinal hemorrhage type Qualified Code(s): K92.2 - Gastrointestinal hemorrhage, unspecified (3) NSTEMI (non-ST elevated myocardial infarction) Current Visit: Yes Status: Acute Assessment and plan: Patient presented with acute elevation in troponin, with peak troponin 3.09; no chest pain. No anticoagulation has been started due to ongoing anemia and GI bleed. Hold aspirin. Continue statin, beta mark, YULIA inhibitor. Telemetry monitoring, continue to trend troponins. Will consult cardiology. Follow-up echocardiogram. (4) CKD (chronic kidney disease) Current Visit: Yes Status: Chronic Assessment and plan: Patient has no known history of chronic kidney disease. No previous labs available. Serum creatinine currently around 1.8-1.9. Continue to monitor closely. Qualifiers: Chronic kidney disease stage: stage 3 (moderate) Qualified Code(s): N18.3 - Chronic kidney disease, stage 3 (moderate) (5) HTN (hypertension) Current Visit: Yes Status: Chronic Assessment and plan: Blood pressure well controlled. Continue home medications. Qualifiers: Hypertension type: essential hypertension Qualified Code(s): I10 - Essential (primary) hypertension (6) Diabetes mellitus Current Visit: Yes Status: Chronic Assessment and plan: Accu-Chek blood glucose monitoring with sliding scale insulin. Diabetic full liquid diet. 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 Continue when necessary breathing treatments and supplemental oxygen. Smoking cessation advised. Qualifiers: COPD type: unspecified COPD Qualified Code(s): J44.9 - Chronic obstructive pulmonary disease, unspecified (8) CAD (coronary artery disease) Current Visit: Yes Status: Chronic Qualifiers: Coronary Disease-Associated Artery/Lesion type: bypass graft [place] vs. transplanted heart: [place] heart Associated angina: without angina Qualified Code(s): I25.810 - Atherosclerosis of coronary artery bypass graft(s) without angina pectoris (9) Abdominal aortic aneurysm Current Visit: Yes Status: Chronic Qualifiers: Presence of rupture: without rupture Qualified Code(s): I71.4 - Abdominal aortic aneurysm, without rupture - Time Spent With Patient Total time spent is greater than 50% in coordination of care (as documented) at patient's floor/unit and/or counseling patient: - Subjective Interval history: Returned from EGD; denies nausea, vomiting, abdominal pain; no bowel movements yet; no chest pain, shortness of breath; - Constitutional Vitals: Temp Pulse Resp BP Pulse Ox 97.8 F 60 16 138/62 95 01/14/18 15:17 01/14/18 15:17 01/14/18 16:08 01/14/18 15:17 01/14/18 16:08 General appearance: Present: A&O X 3, pleasant, obese, answers questions appropriately - Respiratory Respiratory exam: Present: CTAB. Absent: accessory muscle use, rales, rhonchi, wheezes - Cardiovascular Cardiovascular exam: Present: RRR, +S1, +S2. Absent: diastolic murmur, gallop, rubs, systolic murmur - GI/Abdominal GI/Abdominal exam: Present: normal bowel sounds, soft (obese), no peritoneal signs. Absent: distended, tenderness - Extremities Exam Extremities exam: Present: full ROM, warm, radial pulses palpable and symmetrical. Absent: calf tenderness, cyanotic, pedal edema - Neurological Exam Neurological exam: Present: CN II-XII intact, oriented X3, no focal deficits. Absent: pronater drift, facial droop, speech deficit Internal Medicine: Result - Labs CBC & Chem 7: 01/15/18 03:05 01/15/18 12:36 Labs: Short CBC 01/13/18 01/13/18 01/14/18 Range/Units 20:16 21:27 04:38 WBC 16.1 H (4.3-11.1) K/mcL Hgb 7.5 L 7.0 L 8.1 L (12.9-16.9) g/dL Hct 23.2 L 21.8 L 25.0 L (37.5-50.1) % Plt Count 327 (140-400) K/mcL Neutrophils # (1.6-8.9) K/mcL 01/14/18 01/14/18 01/14/18 Range/Units 07:54 12:15 14:42 WBC 13.4 H (4.3-11.1) K/mcL Hgb 8.2 L 8.0 L 8.2 L (12.9-16.9) g/dL Hct 25.1 L 24.9 L 25.7 L (37.5-50.1) % Plt Count 303 (140-400) K/mcL Neutrophils # 10.7 H (1.6-8.9) K/mcL BMP 01/13/18 01/14/18 20:16 07:54 Sodium 131 L 135 L Potassium 4.5 4.2 Chloride 96 L 97 L Carbon Dioxide 26 33 H BUN 53 H 50 H Creatinine 1.89 H 1.93 H Glucose 198 H 161 H Calcium 8.9 8.4 L Cardiac Enzymes 01/13/18 01/14/18 01/14/18 Range/Units 20:16 00:31 04:38 Troponin I 2.15 H* 2.38 H* 3.09 H* (< 0.04) ng/mL 01/14/18 Range/Units 07:54 Troponin I 2.74 H* (< 0.04) ng/mL - Impressions Impressions Chest X-Ray 01/13/18 19:50 IMPRESSION: 1. Cardiomegaly. 2. Calcific atherosclerosis aorta. 3. Scar or subsegmental atelectasis medial left lung base. 4. Status post CABG. D/ / Raj Ho / Raj Ho Interpreting Provider: Raj Ho Consult Discharge Plan - Plan Referrals: Lazaro Panda DO [Primary Care Provider] -
[2018-01-14] MEDS ORDERED: Perflutren Lipid Microsphere 1.3 ML in 0.9 % Sodium Chloride 8.7 ML IVP ONE (21:17)
[2018-01-14 21:31] LABS: Hematocrit 24.6 % (37.5-50.1); Hemoglobin 7.7 g/dL (12.9-16.9)
[2018-01-15 03:44] LABS: Hematocrit 24.2 % (37.5-50.1); Hemoglobin 7.7 g/dL (12.9-16.9)
[2018-01-15] MEDS: Pantoprazole 40 MG VIAL IVP SCH ×2 (06:00→17:07)
[2018-01-15] MEDS: Multivit/Ca/Min/Fe/FA 1 TAB TABLET PO SCH (09:48)
[2018-01-15] MEDS: Nicotine 21 MG PATCH.TD24 TD SCH (09:48)
[2018-01-15] MEDS: Lisinopril 20 MG TABLET PO SCH (09:48)
[2018-01-15] MEDS: Sucralfate 1 GM TABLET PO SCH ×4 (09:48→21:13)
[2018-01-15] MEDS: Insulin LISPRO 300 UNITS/3 ML VIAL SQ SCH ×4 (09:49→21:20)
[2018-01-15] MEDS: OMEGA PO SCH (09:51)
[2018-01-15] MEDS: Ascorbic Acid 500 MG TABLET PO SCH (09:51)
[2018-01-15] MEDS: DHA PO SCH (09:51)
[2018-01-15] MEDS: FISH OIL PO SCH (09:51)
[2018-01-15] MEDS: EPA PO SCH (09:51)
--- NOTE | 2018-01-15 11:43 | Cardiology Progress Note ---
Date of Encounter: 01/15/18 Time of Encounter: 11:40 Assessment and Plan (1) NSTEMI (non-ST elevated myocardial infarction) Current Visit: Yes Status: Acute Troponin elevation up to 3.09 in the setting of GI bleed. NSTEMI vs type II [place]. H/o remote CABG. Currently not a candidate for invasive evaluation with acute GI bleed and [place]. He denies chest pain. TTE completed showed EF 50-55%. Mild MR. No WMA. Possible LHC when stable from bleeding and renal standpoint. No previous labs to compare kidney function. Will order records from PCP office. No heparin gtt due to bleeding. Start asa when felt to be safe from bleeding standpoint. Continue statin and bb. Cardiology will monitor peripherally. Please call with questions. (2) GI bleeding Current Visit: Yes Status: Acute EGD shows non-bleeding duodenal ulcer. Hgb 6.8 on admit. s/p 1 unit PRBC. Hgb 8.2 and now 7.7. Patient reports taking up to 10 aspirins a day for arthritis pain. Recommended to take tylenol for pain. Hospitalist and IM following. Qualifiers: GI bleed type/associated pathology: unspecified gastrointestinal hemorrhage type Qualified Code(s): K92.2 - Gastrointestinal hemorrhage, unspecified (3) CAD (coronary artery disease) Current Visit: No Status: Chronic H/o remote CABG. No recent work-up. WIll consider LHC during his stay if able. Qualifiers: Coronary Disease-Associated Artery/Lesion type: bypass graft [place] vs. transplanted heart: [place] heart Associated angina: without angina Qualified Code(s): I25.810 - Atherosclerosis of coronary artery bypass graft(s) without angina pectoris Discussion w patient/family: The assessment and plan as outlined above was discussed with the patient and/or family members who expressed understanding and agreement. All questions were answered. Thank you for involving us in the care of your patient. Please call with any questions. Subjective Principal diagnosis: GI bleed Interval history: Mr. Sanon reports no events overnight. Denies chest pain or SOB. Objective Vital Signs, Last 4 Hours Temp Pulse Resp BP Pulse Ox 01/15/18 10:08 95 01/15/18 07:59 97.9 F 82 15 135/71 94 01/15/18 07:56 20 95 General: Conversant, No Apparent Distress HEENT: Atraumatic, Normocephaly, Mucus Membranes Moist Neck: No JVD, Normal carotid pulses Cardiac: Reg Rate and Rhythm, Normal S1 and S2, No Murmur Lungs: Normal Breath Sounds, No Wheeze, Rales, Rhonchi Neuro: Alert and responsive, No focal deficits noted Abdomen: Soft, Non-Tender Skin: No rashes noted on visualized skin Musculoskeletal: No Chest Wall Tenderness Extremities: No Clubbing, No Cyanosis, Normal Pulses, Other (Trace ankle edema) Results 01/15/18 03:05 01/14/18 07:54 Lab Results 01/14/18 01/14/18 01/14/18 12:15 14:42 21:00 Hgb 8.0 L 8.2 L 7.7 L Hct 24.9 L 25.7 L 24.6 L 01/15/18 03:05 Hgb 7.7 L Hct 24.2 L - Imaging and Cardiology Echo: pending - EKG Interpretation EKG results cardiology: personally reviewed - VTE Documentation of Mechanical Device: Intermittent pneumatic compression device Consult Discharge Plan - Plan Referrals: Lazaro Panda DO [Primary Care Provider] -
[2018-01-15 13:07] LABS: Calcium 8.1 mg/dL (8.6-10.3)
[2018-01-15] MEDS ORDERED: 0.9 % Sodium Chloride 250 ML ONE (17:05)
--- NOTE | 2018-01-15 17:58 | Internal Med Progress Note ---
Date of Encounter: 01/15/18 Time of Encounter: 17:58 - Assessment and plan (1) Blood loss anemia Current Visit: Yes Status: Acute Assessment and plan: No previous labs available. Patient presented to the emergency room with symptomatic anemia, hemoglobin noted to be 6.6 with stool occult blood test positive. status post 2 units PRBC transfusion. Hb dropped to 7.7 today, will give 1 more unit PRBC; Continue to monitor hemoglobin closely. Case discussed with Dr. Galaviz, no indication for colonoscopy at this time. EGD showed a cratered nonbleeding duodenal ulcer, biopsies pending. (2) GI bleeding Current Visit: Yes Status: Suspected Assessment and plan: GI on board. Underwent EGD, which showed one cratered nonbleeding duodenal ulcer with no stigmata of bleeding. Continue PPI and Carafate. Advance diet as tolerated. May restart aspirin. No indication of colonoscopy at this time. Discussed with Dr. Galaviz. Qualifiers: GI bleed type/associated pathology: duodenal ulcer Qualified Code(s): K26.4 - Chronic or unspecified duodenal ulcer with hemorrhage (3) NSTEMI (non-ST elevated myocardial infarction) Current Visit: Yes Status: Acute Assessment and plan: Patient presented with acute elevation in troponin, with peak troponin 3.09; no chest pain. No anticoagulation has been started due to ongoing anemia and GI bleed. Will restart aspirin. Continue statin, beta mark, YULIA inhibitor. Telemetry monitoring, continue to trend troponins. Cardiology consult appreciated. Patient will require left heart catheterization when stable from anemia and GI bleed standpoint. Transthoracic echocardiogram shows preserved ejection fraction, mild LV diastolic dysfunction, mild LV dilation. (4) CKD (chronic kidney disease) Current Visit: Yes Status: Chronic Assessment and plan: Patient has no known history of chronic kidney disease, but he probably does. No previous labs available. Serum creatinine currently around 1.8-1.9. Continue to monitor closely. Attempting to obtain previous labs from PCP office. Qualifiers: Chronic kidney disease stage: stage 3 (moderate) Qualified Code(s): N18.3 - Chronic kidney disease, stage 3 (moderate) (5) HTN (hypertension) Current Visit: Yes Status: Chronic Assessment and plan: Blood pressure well controlled. Continue home medications. Qualifiers: Hypertension type: essential hypertension Qualified Code(s): I10 - Essential (primary) hypertension (6) Diabetes mellitus Current Visit: Yes Status: Chronic Assessment and plan: Accu-Chek blood glucose monitoring with sliding scale insulin. Diabetic diet. 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 Continue when necessary breathing treatments and supplemental oxygen. Smoking cessation advised. Qualifiers: COPD type: unspecified COPD Qualified Code(s): J44.9 - Chronic obstructive pulmonary disease, unspecified (8) CAD (coronary artery disease) Current Visit: Yes Status: Chronic Qualifiers: Coronary Disease-Associated Artery/Lesion type: bypass graft [place] vs. transplanted heart: [place] heart Associated angina: without angina Qualified Code(s): I25.810 - Atherosclerosis of coronary artery bypass graft(s) without angina pectoris (9) Abdominal aortic aneurysm Current Visit: Yes Status: Chronic Qualifiers: Presence of rupture: without rupture Qualified Code(s): I71.4 - Abdominal aortic aneurysm, without rupture (10) Tobacco abuse Current Visit: Yes Status: Chronic Assessment and plan: Continue nicotine transdermal patch. - Time Spent With Patient Total time spent is greater than 50% in coordination of care (as documented) at patient's floor/unit and/or counseling patient: - Subjective Interval history: Tolerates full liquid diet; denies chest pain, dyspnea, nausea, vomiting; no bowel movements yet; - Constitutional Vitals: Temp Pulse Resp BP Pulse Ox 97.9 F 71 20 141/66 97 01/15/18 17:28 01/15/18 17:28 01/15/18 17:28 01/15/18 17:28 01/15/18 17:28 General appearance: Present: A&O X 3, pleasant, obese, answers questions appropriately - Respiratory Respiratory exam: Present: CTAB. Absent: accessory muscle use, rales, rhonchi, wheezes - Cardiovascular Cardiovascular exam: Present: RRR, +S1, +S2. Absent: diastolic murmur, gallop, rubs, systolic murmur - GI/Abdominal GI/Abdominal exam: Present: normal bowel sounds, soft (obese), no peritoneal signs. Absent: distended, tenderness - Extremities Exam Extremities exam: Present: full ROM, warm, radial pulses palpable and symmetrical. Absent: calf tenderness, cyanotic, pedal edema - Neurological Exam Neurological exam: Present: CN II-XII intact, oriented X3, no focal deficits. Absent: pronater drift, facial droop, speech deficit Internal Medicine: Result - Labs CBC & Chem 7: 01/16/18 04:13 01/16/18 04:13 Labs: Short CBC 01/14/18 01/15/18 Range/Units 21:00 03:05 Hgb 7.7 L 7.7 L (12.9-16.9) g/dL Hct 24.6 L 24.2 L (37.5-50.1) % BMP 01/15/18 12:36 Sodium 132 L Potassium 4.0 Chloride 97 L Carbon Dioxide 28 BUN 36 H Creatinine 1.59 H Glucose 162 H Calcium 8.1 L - Impressions Impressions Echocardiogram 01/14/18 09:02 Impressions: LVEF 50-55%. Definity echo contrast was used. Mild left ventricular diastolic dysfunction. Mildly dilated left ventricle. RV is not well visualized. Mild mitral regurgitation. No pulmonary hypertension. Left Ventricular Wall Motion: Rest Echo Findings All wall segments showed normal motion. Findings: Study Quality * Technically sub-optimal due to body habitus. ECG Findings * Normal sinus rhythm. Left Ventricle * LVEF 50-55%. * Definity echo contrast was used. * Mild left ventricular diastolic dysfunction. * Mildly dilated left ventricle. Right Ventricle * RV is not well visualized. Left Atrium * Normal left atrial size. Right Atrium * Normal right atrial size. Mitral Valve * Normal mitral valve structure. * No mitral stenosis. * Mild mitral regurgitation. Aortic Valve * No aortic regurgitation. * Aortic valve not well visualized. * No aortic stenosis. Tricuspid Valve * Tricuspid valve not well visualized. * No tricuspid regurgitation. * Estimated RA pressure is 3 mmHg. Pulmonic Valve * Pulmonic valve is not well visualized. * No pulmonic stenosis. * No pulmonic regurgitation. Pulmonary Artery * Pulmonary artery not well visualized. Aorta * Not well visualized. Pericardium * There is no pericardial effusion present. Interatrial Septum * No evidence of PFO by color Doppler. IVC * Normal IVC dimensions and inspiratory collapse. - VTE Documentation of Mechanical Device: Intermittent pneumatic compression device Consult Discharge Plan - Plan Referrals: Lazaro Panda DO [Primary Care Provider] -
[2018-01-16 04:44] LABS: Basophils % 0.2 %; Eosinophils # 0.3 K/mcL (0.0-0.6); Eosinophils % 3.3 %; Hematocrit 26.3 % (37.5-50.1); Hemoglobin 8.3 g/dL (12.9-16.9); Immature Granulocytes % 0.8 % (0-4); Lymphocytes # 1.4 K/mcL (0.6-4.6); Lymphocytes % 13.6 %; Mean Corpuscular HGB Conc 31.6 g/dL (31.6-35.5); Mean Corpuscular Hemoglobin 28.5 pg (28.0-33.3); Mean Corpuscular Volume 90.4 fL (83.0-100.0); Mean Platelet Volume 10.8 fL (9.4-12.4); Monocytes # 1.2 K/mcL (0.0-1.3); Monocytes % 11.6 %; Neutrophils # 7.1 K/mcL (1.6-8.9); Platelet Count 281 K/mcL (140-400); Red Blood Count 2.91 M/mcL (4.19-5.50); Red Cell Distribution Width 14.1 % (11.5-14.5); Segmented Neutrophils % 70.5 %
[2018-01-16 04:56] LABS: Calcium 7.9 mg/dL (8.6-10.3); Magnesium 2.2 mg/dL (1.6-2.6); Potassium 4.1 mEq/L (3.5-5.1)
[2018-01-16] MEDS: Pantoprazole 40 MG VIAL IVP SCH (06:13)
[2018-01-16] MEDS: Insulin LISPRO 300 UNITS/3 ML VIAL SQ SCH ×4 (08:41→20:12)
[2018-01-16] MEDS: Sucralfate 1 GM TABLET PO SCH ×4 (08:45→20:11)
[2018-01-16] MEDS: Ascorbic Acid 500 MG TABLET PO SCH (09:31)
[2018-01-16] MEDS: Multivit/Ca/Min/Fe/FA 1 TAB TABLET PO SCH (09:32)
[2018-01-16] MEDS: Lisinopril 20 MG TABLET PO SCH (09:32)
[2018-01-16] MEDS: Nicotine 21 MG PATCH.TD24 TD SCH (09:36)
[2018-01-16] MEDS: Aspirin Enteric Coated 81 MG Tablet PO SCH (12:08)
[2018-01-16] MEDS: Sennosides/Docusate Sodium TABLET PO SCH ×2 (13:24→20:11)
--- NOTE | 2018-01-16 18:36 | Internal Med Progress Note ---
Date of Encounter: 01/16/18 Time of Encounter: 12:00 - Assessment and plan (1) Blood loss anemia Current Visit: Yes Status: Acute Assessment and plan: No previous labs available. Patient presented to the emergency room with symptomatic anemia, hemoglobin noted to be 6.6 with stool occult blood test positive. status post 3 units PRBC transfusion. Hb improved to 8.3 today. Continue to monitor hemoglobin closely. Serum iron profile noted to be normal. (2) GI bleeding Current Visit: Yes Status: Suspected Assessment and plan: GI on board. Underwent EGD, which showed one cratered nonbleeding duodenal ulcer with no stigmata of bleeding. Continue PPI and Carafate. Advance diet as tolerated. Will restart aspirin. Start senna plus. No indication of colonoscopy at this time. Discussed with Dr. Galaviz. Qualifiers: GI bleed type/associated pathology: duodenal ulcer Qualified Code(s): K26.4 - Chronic or unspecified duodenal ulcer with hemorrhage (3) NSTEMI (non-ST elevated myocardial infarction) Current Visit: Yes Status: Acute Assessment and plan: Patient presented with acute elevation in troponin, with peak troponin 3.09; no chest pain. No anticoagulation has been started due to ongoing anemia and GI bleed. Will restart aspirin. Continue statin, beta mark, YULIA inhibitor. Telemetry monitoring, continue to trend troponins. Discussed with cardiology. We will reassess tomorrow for left heart catheterization later this week. Transthoracic echocardiogram shows preserved ejection fraction, mild LV diastolic dysfunction, mild LV dilation. (4) CKD (chronic kidney disease) Current Visit: Yes Status: Chronic Assessment and plan: Patient has no known history of chronic kidney disease, but he probably does. No previous labs available. Serum creatinine currently around 1.8-1.9. Continue to monitor closely. Attempting to obtain previous labs from PCP office. Qualifiers: Chronic kidney disease stage: stage 3 (moderate) Qualified Code(s): N18.3 - Chronic kidney disease, stage 3 (moderate) (5) HTN (hypertension) Current Visit: Yes Status: Chronic Qualifiers: Hypertension type: essential hypertension Qualified Code(s): I10 - Essential (primary) hypertension (6) Diabetes mellitus Current Visit: Yes Status: Chronic Assessment and plan: Accu-Chek blood glucose monitoring with sliding scale insulin. Diabetic diet. Qualifiers: Diabetes mellitus type: type 2 Diabetes mellitus halfway insulin use: without halfway use Diabetes mellitus complication status: with unspecified complications Qualified Code(s): E11.8 - Type 2 diabetes mellitus with unspecified complications (7) COPD (chronic obstructive pulmonary disease) Current Visit: Yes Status: Chronic Qualifiers: COPD type: unspecified COPD Qualified Code(s): J44.9 - Chronic obstructive pulmonary disease, unspecified (8) CAD (coronary artery disease) Current Visit: Yes Status: Chronic Qualifiers: Coronary Disease-Associated Artery/Lesion type: bypass graft [place] vs. transplanted heart: [place] heart Associated angina: without angina Qualified Code(s): I25.810 - Atherosclerosis of coronary artery bypass graft(s) without angina pectoris (9) Abdominal aortic aneurysm Current Visit: Yes Status: Chronic Qualifiers: Presence of rupture: without rupture Qualified Code(s): I71.4 - Abdominal aortic aneurysm, without rupture (10) Tobacco abuse Current Visit: Yes Status: Chronic Assessment and plan: Continue nicotine transdermal patch. Smoking cessation reinforced, patient is motivated to quit smoking after discharge. - Time Spent With Patient Total time spent is greater than 50% in coordination of care (as documented) at patient's floor/unit and/or counseling patient: - Subjective Interval history: denies chest pain, dyspnea, nausea, vomiting; no bowel movements yet; - Constitutional Vitals: Temp Pulse Resp BP Pulse Ox 98 F 63 18 145/68 91 01/16/18 15:39 01/16/18 15:39 01/16/18 15:45 01/16/18 15:39 01/16/18 15:45 General appearance: Present: A&O X 3, pleasant, obese, answers questions appropriately - Respiratory Respiratory exam: Present: CTAB. Absent: accessory muscle use, rales, rhonchi, wheezes - Cardiovascular Cardiovascular exam: Present: RRR, +S1, +S2. Absent: diastolic murmur, gallop, rubs, systolic murmur - GI/Abdominal GI/Abdominal exam: Present: normal bowel sounds, soft (obese), no peritoneal signs. Absent: distended, tenderness - Extremities Exam Extremities exam: Present: full ROM, warm, radial pulses palpable and symmetrical. Absent: calf tenderness, cyanotic, pedal edema Internal Medicine: Result - Labs CBC & Chem 7: 01/16/18 04:13 01/16/18 04:13 Labs: Short CBC 01/16/18 Range/Units 04:13 WBC 10.0 (4.3-11.1) K/mcL Hgb 8.3 L (12.9-16.9) g/dL Hct 26.3 L (37.5-50.1) % Plt Count 281 (140-400) K/mcL Neutrophils # 7.1 (1.6-8.9) K/mcL BMP 01/16/18 04:13 Sodium 134 L Potassium 4.1 Chloride 101 Carbon Dioxide 28 BUN 32 H Creatinine 1.55 H Glucose 172 H Calcium 7.9 L - VTE Documentation of Mechanical Device: Intermittent pneumatic compression device Consult Discharge Plan - Plan Referrals: Lazaro Panda DO [Primary Care Provider] -
[2018-01-17 06:07] LABS: Basophils % 0.2 %; Eosinophils # 0.4 K/mcL (0.0-0.6); Eosinophils % 3.8 %; Hematocrit 26.5 % (37.5-50.1); Hemoglobin 8.4 g/dL (12.9-16.9); Immature Granulocytes % 1.2 % (0-4); Lymphocytes # 1.4 K/mcL (0.6-4.6); Lymphocytes % 12.7 %; Mean Corpuscular HGB Conc 31.7 g/dL (31.6-35.5); Mean Corpuscular Hemoglobin 28.7 pg (28.0-33.3); Mean Corpuscular Volume 90.4 fL (83.0-100.0); Mean Platelet Volume 10.9 fL (9.4-12.4); Monocytes # 1.4 K/mcL (0.0-1.3); Monocytes % 12.3 %; Neutrophils # 7.9 K/mcL (1.6-8.9); Platelet Count 323 K/mcL (140-400); Red Blood Count 2.93 M/mcL (4.19-5.50); Red Cell Distribution Width 13.9 % (11.5-14.5); Segmented Neutrophils % 69.8 %
[2018-01-17 06:18] LABS: Calcium 7.9 mg/dL (8.6-10.3); Potassium 4.4 mEq/L (3.5-5.1)
[2018-01-17] MEDS: Multivit/Ca/Min/Fe/FA 1 TAB TABLET PO SCH (08:16)
[2018-01-17] MEDS: Lisinopril 20 MG TABLET PO SCH (08:16)
[2018-01-17] MEDS: Sucralfate 1 GM TABLET PO SCH ×4 (08:16→21:37)
[2018-01-17] MEDS: Ascorbic Acid 500 MG TABLET PO SCH (08:17)
[2018-01-17] MEDS: Insulin LISPRO 300 UNITS/3 ML VIAL SQ SCH ×4 (08:17→21:36)
[2018-01-17] MEDS: Sennosides/Docusate Sodium TABLET PO SCH ×2 (08:17→21:32)
[2018-01-17] MEDS: Aspirin Enteric Coated 81 MG Tablet PO SCH (08:17)
[2018-01-17] MEDS: Nicotine 21 MG PATCH.TD24 TD SCH (12:12)
--- NOTE | 2018-01-17 12:12 | Cardiology Progress Note ---
Date of Encounter: 01/17/18 Time of Encounter: 12:00 Assessment and Plan (1) NSTEMI (non-ST elevated myocardial infarction) Current Visit: Yes Status: Acute Troponin elevation up to 3.09 in the setting of GI bleed. NSTEMI vs type II VT. H/o remote CABG. Currently not a candidate for invasive evaluation with acute GI bleed this admission. He recieved 3 units PRBC. EGD completed showed non bleeding cratered duodenal ulcer. I discussed with Dr. Thomas. He recommends letting ulcer heal for 2-4 weeks prior to restarting asa if LHC is not urgent. He denies chest pain or other CV symptoms. TTE completed showed EF 50-55%. Mild MR. No WMA. No urgent need to proceed with LHC. Agree with allowing time for ulcer to heal. Will re-evaluate in 2-3 weeks. Patient and family agree. Out-pt f/u will be coordinated by [facility]. Plan of care reviewed with Dr. August. (2) GI bleeding Current Visit: Yes Status: Suspected EGD shows non-bleeding duodenal ulcer. Hgb 6.8 on admit. s/p 3 unit PRBC. Hgb stable for 2 days. Patient reports taking up to 10 aspirins a day for arthritis pain. Recommended to take tylenol for pain. Hospitalist and IM following. Qualifiers: GI bleed type/associated pathology: duodenal ulcer Qualified Code(s): K26.4 - Chronic or unspecified duodenal ulcer with hemorrhage (3) CAD (coronary artery disease) Current Visit: Yes Status: Chronic H/o remote CABG. No recent work-up. Out-pt f/u to be scheduled. No asa due to acute GI bleed with excessive asa use. Continue statin and bb. Qualifiers: Coronary Disease-Associated Artery/Lesion type: bypass graft [place] vs. transplanted heart: [place] heart Associated angina: without angina Qualified Code(s): I25.810 - Atherosclerosis of coronary artery bypass graft(s) without angina pectoris Discussion w patient/family: The assessment and plan as outlined above was discussed with the patient and/or family members who expressed understanding and agreement. All questions were answered. Thank you for involving us in the care of your patient. Please call with any questions. Subjective Principal diagnosis: GI bleed Interval history: Mr. Sanon reports no events overnight. Denies chest pain or SOB. Genralized weakness noted. Objective Vital Signs, Last 4 Hours Pulse Resp BP Pulse Ox 01/17/18 11:48 58 14 146/62 96 01/17/18 11:38 19 93 General: Conversant, No Apparent Distress HEENT: Atraumatic, Normocephaly, Mucus Membranes Moist Neck: No JVD, Normal carotid pulses Cardiac: Reg Rate and Rhythm, Normal S1 and S2, No Murmur Lungs: Normal Breath Sounds, No Wheeze, Rales, Rhonchi Neuro: Alert and responsive, No focal deficits noted Abdomen: Soft, Non-Tender Skin: No rashes noted on visualized skin Musculoskeletal: No Chest Wall Tenderness Extremities: No Clubbing, No Cyanosis, No Edema, Normal Pulses Results 01/17/18 05:20 01/17/18 05:20 Lab Results 01/17/18 01/17/18 05:20 05:20 WBC 11.3 H Hgb 8.4 L Hct 26.5 L Plt Count 323 Sodium 134 L Potassium 4.4 Chloride 101 Carbon Dioxide 29 BUN 22 Creatinine 1.42 H Glucose 138 H Calcium 7.9 L - Imaging and Cardiology Echo: report reviewed - EKG Interpretation EKG results cardiology: personally reviewed - VTE Documentation of Mechanical Device: Intermittent pneumatic compression device Consult Discharge Plan - Plan Referrals: Lazaro Panda DO [Primary Care Provider] -
--- NOTE | 2018-01-17 14:42 | Discharge Summary ---
<Noah Manuel - Last Filed: 01/18/18 17:31> Orders not resulted at time of discharge: Pending orders 01/13/18 19:53 Urinalysis reflex Microscopic [URIN] Stat 01/17/18 10:07 H. Pylori Antigen, Fecal Stat Date of Encounter: 01/18/18 Time of Encounter: 09:00 - Discharge Diagnosis (1) GI bleeding Priority: Primary Status: Suspected Qualifiers: GI bleed type/associated pathology: duodenal ulcer Qualified Code(s): K26.4 - Chronic or unspecified duodenal ulcer with hemorrhage (2) NSTEMI (non-ST elevated myocardial infarction) Priority: Primary Status: Acute (3) CKD (chronic kidney disease) Priority: Secondary Status: Chronic Qualifiers: Chronic kidney disease stage: stage 3 (moderate) Qualified Code(s): N18.3 - Chronic kidney disease, stage 3 (moderate) (4) HTN (hypertension) Priority: Secondary Status: Chronic Qualifiers: Hypertension type: essential hypertension Qualified Code(s): I10 - Essential (primary) hypertension (5) Diabetes mellitus Priority: Secondary Status: Chronic Qualifiers: Diabetes mellitus type: type 2 Diabetes mellitus poultry pinner insulin use: without fdc use Diabetes mellitus complication status: with unspecified complications Qualified Code(s): E11.8 - Type 2 diabetes mellitus with unspecified complications (6) COPD (chronic obstructive pulmonary disease) Priority: Secondary Status: Chronic Qualifiers: COPD type: unspecified COPD Qualified Code(s): J44.9 - Chronic obstructive pulmonary disease, unspecified (7) CAD (coronary artery disease) Priority: Secondary Status: Chronic Qualifiers: Coronary Disease-Associated Artery/Lesion type: bypass graft [place] vs. transplanted heart: [place] heart Associated angina: without angina Qualified Code(s): I25.810 - Atherosclerosis of coronary artery bypass graft(s) without angina pectoris (8) Abdominal aortic aneurysm Priority: Secondary Status: Chronic Qualifiers: Presence of rupture: without rupture Qualified Code(s): I71.4 - Abdominal aortic aneurysm, without rupture (9) Blood loss anemia Priority: Secondary Status: Acute (10) Tobacco abuse Priority: Secondary Status: Chronic Hospital course: Mr. Sanon is a 67 year old male with past medical history significant for CAD status post CABG, hypertension, hyperlipidemia, diabetes, COPD transfer from [facility] for multiple complaints. Lab work reveals severe anemia with hemoglobin 6.6, FOBT positive. Troponin was elevated 1.7, EKG revealed diffuse ST depressions. Transthoracic echo demonstrates preserved ejection fraction, mild LV diastolic dysfunction, mild LV dilation. Cardiology consulted and expresses no need for urgent left heart catheter. Patient had also received 3 units of blood throughout admission due to GI bleed, EGD demonstrated nonbleeding duodenal ulcer. His hemoglobin is stable. No acute signs of bleeding. Patient is to continue PPI, Carafate, aspirin, senna. Today, patient denies chest pain, shortness of breath, abdominal pain, diarrhea/ constipation. Patient has no acute complaints. Plan for discharge today with outpatient left heart catheterization in 2-3 weeks. Patient is discharged with Colace, Lopressor, Carafate and is advised to continue his home medications. Patient demonstrates understanding and is agreeable to treatment plan. - Time Spent with Patient Total time spent providing and/or coordinating discharge services: Greater than 30 minutes - Discharge Medications Prescriptions: Docusate [Colace] 100 mg PO BID #30 capsule Metoprolol [Lopressor] 25 mg PO BID #60 tablet Sucralfate [Carafate] 1 gm PO QIDAC #30 tablet Home Medications: Albuterol Sulfate [Proair Hfa] 1 - 2 puff IH Q4H PRN 01/13/18 [History] Ascorbate Calcium [Vitamin C] 500 mg PO DAILY 01/13/18 [History] Aspirin [Ecotrin] 325 mg PO DAILY 01/13/18 [History] Ferrous Sulfate [Iron] 650 mg PO 3XW 01/13/18 [History] Lisinopril [Zestril] 40 mg PO DAILY 01/13/18 [History] Multivitamin [One Daily Essential] 1 each PO DAILY 01/13/18 [History] Nicotine Patch [Nicoderm] 21 mg TD DAILY 01/13/18 [History] Nicotine Polacrilex [Nicotine Gum] 4 mg BC PRN PRN 01/13/18 [History] [place]-3/Dha/Epa/Fish Oil [Fish Oil [place]-3 EC 1,200 mg] 1 cap PO DAILY 01/13/18 [History] hydroCHLOROthiazide [Hydrochlorothiazide] 25 mg PO DAILY 01/13/18 [History] metFORMIN [Glucophage] 500 mg PO BIDWM 01/13/18 [History] predniSONE [PredniSONE] 20 mg PO DAILY 01/13/18 [History] Atorvastatin [Lipitor] 40 mg PO HS 01/14/18 [History] Docusate [Colace] 100 mg PO BID #30 capsule 01/18/18 [Rx] Metoprolol [Lopressor] 25 mg PO BID #60 tablet 01/18/18 [Rx] Sucralfate [Carafate] 1 gm PO QIDAC #30 tablet 01/18/18 [Rx] Allergies/Adverse Reactions: 3 Allergy/AdvReac Type Severity Reaction Status Date / Time No Known Allergies Allergy Verified 01/13/18 21:28 Date of admission: 01/13/18 19:53 Primary care physician: Lazaro Panda Consults: 01/14/18 09:02 Consult to Cardiology [CONS] Routine Comment: Consulting Provider: Cardiology Harika Reason for Consult: Dyspnea, elevated Troponin, possible NSTEMI, with anemia and GI bleed Call Completed: No 01/17/18 12:25 Consult to Physical Therapy [CONS] Routine Comment: Evaluate, develop and implement POC Reason for Consult: Patient difficulty with transfers and ambulation Does patient have active BEDREST order?: No Is patient medically & hemodynamically stable?: Yes Patient assessed for mobility or mobilized this visit?: Yes OT [Consult to Occupational Therapy] [CONS] Routine Comment: Evaluate, develop and implement POC Reason for Consult: Difficulty with ADL's Does patient have active BEDREST order?: No Is patient medically & hemodynamically stable?: Yes Patient assessed for mobility or mobilized this visit?: Yes Discharging clinician: Noah Manuel Anticipated date of discharge: 01/18/18 - Constitutional Vitals: Temp Pulse Resp BP Pulse Ox 98.2 F 58 14 146/62 96 01/17/18 07:00 01/17/18 11:48 01/17/18 11:48 01/17/18 11:48 01/17/18 11:48 General appearance: Present: A&O X 3, pleasant, obese, answers questions appropriately - Head Head exam: Present: atraumatic, normocephalic - Eye Eye exam: Present: PERRL, conjuntiva pink, sclera anicteric Pupils: Present: PERRL - Neck Neck exam general surgery: Present: supple, trachea midline. Absent: lymphadenopathy - Respiratory Respiratory exam: Present: CTAB. Absent: accessory muscle use, rales, rhonchi, wheezes - Cardiovascular Cardiovascular exam: Present: RRR, +S1, +S2. Absent: diastolic murmur, gallop, rubs, systolic murmur - GI/Abdominal GI/Abdominal exam: Present: normal bowel sounds, soft, no peritoneal signs. Absent: distended, tenderness - Extremities Exam Extremities exam: Present: warm, radial pulses palpable and symmetrical. Absent : calf tenderness, cyanotic, pedal edema - Neurological Exam Neurological exam: Present: CN II-XII intact, oriented X3, no focal deficits. Absent: pronater drift, facial droop, speech deficit - Skin Skin exam: Present: dry, intact - Patient Status Disposition: Home, Self-Care Condition: Good Functional capacity at discharge: independent ambulation Overall status at discharge: patient is back to baseline - Discharge Instructions Instructions: Metoprolol (By mouth), Sucralfate (By mouth), Laxative, Stool Softeners (By mouth), Myocardial Infarction (DC), Peptic Ulcer (DC), Anemia (GEN ) Follow Up With: Lazaro Panda DO [Primary Care Provider] - 01/23/18 8:15 am Silvio Horan CNP [Advanced Practice Nurse] - Yoan Thomas DO [Partnered Physician] - 01/24/18 10:00 am () Additional Instructions: Please follow Soft/[place] diet until you are seen by Dr. Thomas. He will let you know if you can increase diet. Do not take Aspirin more than once / day. Take other methods of pain med such as Tylenol which does not damage stomach or duodenal lining. - Diet and Activity Activity: increase activity as tolerated, resume usual activities as tolerated Diet: advance to your usual diet - VTE Documentation of Mechanical Device: Intermittent pneumatic compression device <Sly Ramos - Last Filed: 01/18/18 19:32> Orders not resulted at time of discharge: Pending orders 01/13/18 19:53 Urinalysis reflex Microscopic [URIN] Stat 01/17/18 10:07 H. Pylori Antigen, Fecal Stat Date of Encounter: 01/18/18 - Discharge Diagnosis (1) NSTEMI (non-ST elevated myocardial infarction) Status: Acute (2) GI bleeding Status: Acute Qualifiers: GI bleed type/associated pathology: duodenal ulcer Qualified Code(s): K26.4 - Chronic or unspecified duodenal ulcer with hemorrhage (3) CKD (chronic kidney disease) Status: Chronic Qualifiers: Chronic kidney disease stage: stage 3 (moderate) Qualified Code(s): N18.3 - Chronic kidney disease, stage 3 (moderate) (4) HTN (hypertension) Status: Chronic Qualifiers: Hypertension type: essential hypertension Qualified Code(s): I10 - Essential (primary) hypertension (5) Diabetes mellitus Status: Chronic Qualifiers: Diabetes mellitus type: type 2 Diabetes mellitus poultry pinner insulin use: without fdc use Diabetes mellitus complication status: with unspecified complications Qualified Code(s): E11.8 - Type 2 diabetes mellitus with unspecified complications (6) COPD (chronic obstructive pulmonary disease) Status: Chronic Qualifiers: COPD type: unspecified COPD Qualified Code(s): J44.9 - Chronic obstructive pulmonary disease, unspecified (7) CAD (coronary artery disease) Status: Chronic Qualifiers: Coronary Disease-Associated Artery/Lesion type: bypass graft [place] vs. transplanted heart: [place] heart Associated angina: without angina Qualified Code(s): I25.810 - Atherosclerosis of coronary artery bypass graft(s) without angina pectoris (8) Abdominal aortic aneurysm Status: Chronic Qualifiers: Presence of rupture: without rupture Qualified Code(s): I71.4 - Abdominal aortic aneurysm, without rupture (9) Blood loss anemia Status: Acute Hospital course: Mr. Sanon is a 67 year old male - Time Spent with Patient Total time spent providing and/or coordinating discharge services: 28min Date of admission: 01/13/18 19:53 Primary care physician: Lazaro Panda Consults: 01/14/18 09:02 Consult to Cardiology [CONS] Routine Comment: Consulting Provider: Jinny Shabazz Reason for Consult: Dyspnea, elevated Troponin, possible NSTEMI, with anemia and GI bleed Call Completed: No 01/17/18 12:25 Consult to Physical Therapy [CONS] Routine Comment: Evaluate, develop and implement POC Reason for Consult: Patient difficulty with transfers and ambulation Does patient have active BEDREST order?: No Is patient medically & hemodynamically stable?: Yes Patient assessed for mobility or mobilized this visit?: Yes - Constitutional Vitals: Temp Pulse Resp BP Pulse Ox 98.2 F 61 16 147/65 95 01/18/18 07:49 01/18/18 07:49 01/18/18 07:49 01/18/18 07:49 01/18/18 07:49 - Attending Attestation I examined this patient and my medical decision-making was reviewed with the Resident Physician on 01/18/18. I agree with the documented findings, disposition and treatment plan as described except to the extent set forth below. Mr Sanon has been admitted for NSTEMI and GI bleed due to duodenal ulcer. He is now afebrile and ambulates. He feels ready for discharge home and outpatient follow up. Exam alert Comfortable Mucus membranes dry Heart reg No wheeze Plan D/C home today.
--- NOTE | 2018-01-17 15:04 | Internal Med Progress Note ---
<Noah Manuel - Last Filed: 01/17/18 18:42> Date of Encounter: 01/17/18 Time of Encounter: 15:00 - Assessment and plan (1) NSTEMI (non-ST elevated myocardial infarction) Current Visit: Yes Status: Acute Assessment and plan: Transthoracic echocardiogram shows preserved ejection fraction, mild LV diastolic dysfunction, mild LV dilation. Discussed with cardiology. No need for urgent LHC. Continue statin, aspirin, beta mark, YULIA inhibitor. Plan for discharge tomorrow and LHC in 2-3 weeks. (2) GI bleeding Current Visit: Yes Status: Suspected Assessment and plan: Patient underwent EGD due to suspected GIB, which showed one cratered nonbleeding duodenal ulcer with no stigmata of bleeding. Agree to continue PPI and Carafate, aspirin, senna. Advance diet as tolerated. Colace and senna to induce bowel movement as last BM was 4 days ago. Qualifiers: GI bleed type/associated pathology: duodenal ulcer Qualified Code(s): K26.4 - Chronic or unspecified duodenal ulcer with hemorrhage (3) HTN (hypertension) Current Visit: Yes Status: Chronic Assessment and plan: Blood pressure well controlled. Continue home medications. Qualifiers: Hypertension type: essential hypertension Qualified Code(s): I10 - Essential (primary) hypertension (4) Diabetes mellitus Current Visit: Yes Status: Chronic Assessment and plan: Accu-Chek blood glucose monitoring with sliding scale insulin. Diabetic diet. Qualifiers: Diabetes mellitus type: type 2 Diabetes mellitus longterm insulin use: without long term care administrator use Diabetes mellitus complication status: with unspecified complications Qualified Code(s): E11.8 - Type 2 diabetes mellitus with unspecified complications (5) COPD (chronic obstructive pulmonary disease) Current Visit: Yes Status: Chronic Assessment and plan: Not in acute exacerbation. Continue when necessary breathing treatments and supplemental oxygen. Smoking cessation advised. Qualifiers: COPD type: unspecified COPD Qualified Code(s): J44.9 - Chronic obstructive pulmonary disease, unspecified (6) CAD (coronary artery disease) Current Visit: Yes Status: Chronic Assessment and plan: - Hold asa for GI bleeding. - see above. Qualifiers: Coronary Disease-Associated Artery/Lesion type: bypass graft [place] vs. transplanted heart: [place] heart Associated angina: without angina Qualified Code(s): I25.810 - Atherosclerosis of coronary artery bypass graft(s) without angina pectoris (7) Tobacco abuse Current Visit: Yes Status: Chronic Assessment and plan: Continue nicotine transdermal patch. Smoking cessation reinforced, patient is motivated to quit smoking after discharge. (8) Acute kidney injury Current Visit: Yes Status: Acute Assessment and plan: Improved. Obtained outpatient bloodwork. normal BUN/Creating without history of kidney disease. Kidney enzymes normalizing this admission. Continue to monitor - Time Spent With Patient Total time spent is greater than 50% in coordination of care (as documented) at patient's floor/unit and/or counseling patient: - Subjective Interval history: Patient reports improvement of shortness of breath. He continues to have chest pain on exertion. He denies fever, chills, cough, chest pain, palpitation, syncope, and lightheadedness. He has no abdominal pain, nausea/vomiting, diarrhea, or bloody stool. He received 1 unit PRBC blood transfusion prior to transferring to [facility] for further management. He has been ambulating with assistance. Voiding and eating without difficulty. He does express fears of remitting symptoms of SOB and chest pain. He feels anxious about his condition. - Constitutional Vitals: Temp Pulse Resp BP Pulse Ox 98.2 F 58 14 146/62 96 01/17/18 07:00 01/17/18 11:48 01/17/18 11:48 01/17/18 11:48 01/17/18 11:48 General appearance: Present: A&O X 3, pleasant, obese, answers questions appropriately - Head Head exam: Present: atraumatic, normocephalic - Eye Eye exam: Present: PERRL, conjuntiva pink, sclera anicteric Pupils: Present: PERRL - Neck Neck exam general surgery: Present: supple, trachea midline. Absent: lymphadenopathy - Respiratory Respiratory exam: Present: CTAB. Absent: accessory muscle use, rales, rhonchi, wheezes - Cardiovascular Cardiovascular exam: Present: RRR, +S1, +S2. Absent: diastolic murmur, gallop, rubs, systolic murmur - GI/Abdominal GI/Abdominal exam: Present: normal bowel sounds, soft, no peritoneal signs. Absent: distended, tenderness - Extremities Exam Extremities exam: Present: warm, radial pulses palpable and symmetrical. Absent : calf tenderness, cyanotic, pedal edema - Neurological Exam Neurological exam: Present: CN II-XII intact, oriented X3, no focal deficits. Absent: pronater drift, facial droop, speech deficit - Skin Skin exam: Present: dry, intact Internal Medicine: Result - Labs CBC & Chem 7: 01/17/18 05:20 01/17/18 05:20 Labs: Short CBC 01/17/18 Range/Units 05:20 WBC 11.3 H (4.3-11.1) K/mcL Hgb 8.4 L (12.9-16.9) g/dL Hct 26.5 L (37.5-50.1) % Plt Count 323 (140-400) K/mcL Neutrophils # 7.9 (1.6-8.9) K/mcL BMP 01/17/18 05:20 Sodium 134 L Potassium 4.4 Chloride 101 Carbon Dioxide 29 BUN 22 Creatinine 1.42 H Glucose 138 H Calcium 7.9 L - VTE Documentation of Mechanical Device: Intermittent pneumatic compression device Consult Discharge Plan - Plan Referrals: Lazaro Panda DO [Primary Care Provider] - <Sly Ramos - Last Filed: 01/17/18 19:31> Date of Encounter: 01/17/18 - Assessment and plan (1) NSTEMI (non-ST elevated myocardial infarction) Current Visit: Yes Status: Acute (2) GI bleeding Current Visit: Yes Status: Suspected Qualifiers: GI bleed type/associated pathology: duodenal ulcer Qualified Code(s): K26.4 - Chronic or unspecified duodenal ulcer with hemorrhage (3) HTN (hypertension) Current Visit: Yes Status: Chronic Qualifiers: Hypertension type: essential hypertension Qualified Code(s): I10 - Essential (primary) hypertension (4) Diabetes mellitus Current Visit: Yes Status: Chronic Qualifiers: Diabetes mellitus type: type 2 Diabetes mellitus longterm insulin use: without longterm use Diabetes mellitus complication status: with unspecified complications Qualified Code(s): E11.8 - Type 2 diabetes mellitus with unspecified complications (5) COPD (chronic obstructive pulmonary disease) Current Visit: Yes Status: Chronic Qualifiers: COPD type: unspecified COPD Qualified Code(s): J44.9 - Chronic obstructive pulmonary disease, unspecified (6) CAD (coronary artery disease) Current Visit: Yes Status: Chronic Qualifiers: Coronary Disease-Associated Artery/Lesion type: bypass graft [place] vs. transplanted heart: [place] heart Associated angina: without angina Qualified Code(s): I25.810 - Atherosclerosis of coronary artery bypass graft(s) without angina pectoris (7) Tobacco abuse Current Visit: Yes Status: Chronic (8) Acute kidney injury Current Visit: Yes Status: Acute - Time Spent With Patient Total time spent is greater than 50% in coordination of care (as documented) at patient's floor/unit and/or counseling patient: - Constitutional Vitals: Temp Pulse Resp BP Pulse Ox 98.3 F 61 14 127/57 96 01/17/18 15:00 01/17/18 15:00 01/17/18 15:55 01/17/18 15:00 01/17/18 15:55 Internal Medicine: Result - Labs CBC & Chem 7: 01/17/18 05:20 01/17/18 05:20 Labs: Short CBC 01/17/18 Range/Units 05:20 WBC 11.3 H (4.3-11.1) K/mcL Hgb 8.4 L (12.9-16.9) g/dL Hct 26.5 L (37.5-50.1) % Plt Count 323 (140-400) K/mcL Neutrophils # 7.9 (1.6-8.9) K/mcL BMP 01/17/18 05:20 Sodium 134 L Potassium 4.4 Chloride 101 Carbon Dioxide 29 BUN 22 Creatinine 1.42 H Glucose 138 H Calcium 7.9 L - Attending Attestation I examined this patient and my medical decision-making was reviewed with the Resident Physician on 01/17/18. I agree with the documented findings, disposition and treatment plan as described except to the extent set forth below. Mr Sanon is currently admitted for acute NSTEMI and GI bleed due to duodenal ulcer. He remains moderate to high risk due to potential for worsening clinical and cardiac status. Mr Sanon feels OK but weak. No CP. No abd pain. No fever. Wants to get up some. Exam alert Comfortable Mucus membranes dry Heart distant Lungs diminished abd soft I/P 1. NSTEMI 2. GI bleed Further diagnoses and plan as above.
[2018-01-18 05:19] LABS: BUN/Creatinine Ratio 16 (6-26); Blood Urea Nitrogen 22 mg/dL (8-23); Calcium 8.1 mg/dL (8.6-10.3); Carbon Dioxide 28 mEq/L (23-29); Chloride 101 mEq/L (98-107); Glucose 152 mg/dL (70-105); Osmolality,Calculated 282 (280-300); Potassium 4.7 mEq/L (3.5-5.1); Sodium 133 mEq/L (136-145); eGFR For African Americans > 60 (> 60); eGFR For Non-African Americans 52 (> 60)
[2018-01-18 07:52] VITALS: BP 147/65
[2018-01-18] MEDS: Sucralfate 1 GM TABLET PO SCH (08:06)
[2018-01-18] MEDS: Insulin LISPRO 300 UNITS/3 ML VIAL SQ SCH (08:06)
[2018-01-18] MEDS: Nicotine 21 MG PATCH.TD24 TD SCH (09:22)
[2018-01-18] MEDS: Lisinopril 20 MG TABLET PO SCH (09:23)
[2018-01-18] MEDS: Ascorbic Acid 500 MG TABLET PO SCH (09:23)
[2018-01-18] MEDS: Multivit/Ca/Min/Fe/FA 1 TAB TABLET PO SCH (09:23)
[2018-01-18] MEDS: Sennosides/Docusate Sodium TABLET PO SCH (09:23)
== END 2018-01-18 11:04 | disposition home or self-care (01) | DRG 280 ==
LOC: 2NENU → SUATTDRO 19:53
PROVIDERS: ADMIT Internal Medicine; ATTEND Internal Medicine
PROC: ENDOEBX (2018-01-14 16:50)

== ENCOUNTER 2018-09-03 16:08 | Inpatient (IN) ==
[2018-09-03] MEDS ORDERED: Acetaminophen 325 MG TABLET PO PRN (18:29)
[2018-09-03 19:28] LABS: Basophils % 0.2 %; Eosinophils # 0.3 K/mcL (0.0-0.6); Eosinophils % 3.1 %; Hematocrit 26.3 % (37.5-50.1); Immature Granulocytes % 3.2 % (0-4); Lymphocytes # 0.7 K/mcL (0.6-4.6); Lymphocytes % 6.9 %; Mean Corpuscular HGB Conc 30.4 g/dL (31.6-35.5); Mean Corpuscular Hemoglobin 28.2 pg (28.0-33.3); Mean Corpuscular Volume 92.6 fL (83.0-100.0); Mean Platelet Volume 9.9 fL (9.4-12.4); Monocytes # 1.5 K/mcL (0.0-1.3); Monocytes % 14.1 %; Neutrophils # 7.6 K/mcL (1.6-8.9); Nucleated Red Blood Cells 0.2 /100 WBC (0); Platelet Count 227 K/mcL (140-400); Red Blood Count 2.84 M/mcL (4.19-5.50); Red Cell Distribution Width 18.6 % (11.5-14.5); Segmented Neutrophils % 72.5 %
[2018-09-03 19:36] LABS: INR 1.1; Prothrombin Time 11.9 Seconds (9.4-12.1)
[2018-09-03 19:39] LABS: Calcium 8.6 mg/dL (8.6-10.3); Magnesium 2.3 mg/dL (1.6-2.6); Phosphorous 4.2 mg/dL (2.7-4.5); Potassium 4.2 mEq/L (3.5-5.1)
[2018-09-03] MEDS ORDERED: Naloxone 0.4 MG/ML INJ IVP PRN (20:54)
--- NOTE | 2018-09-03 21:13 | General Surg History&Physical ---
Date of Encounter: 09/03/18 Time of Encounter: 21:11 Assessment and Plan (1) Abscess of right groin Current Visit: Yes Status: Acute 68M with R groin abscess; non septic renal diet consult to nephrology for HD discuss wt anesthesia concerning appropriate preparation for the OR activity as tolerated TF at night per home regimen plna for OR on 09/05 The assessment and plan as outlined above was discussed with the patient and/or family members who expressed understanding and agreement. All questions were answered. History of Present Illness Chief complaint: right groin abscess HPI: Mr. Sanon is a 68 year old male h/o CAD s/p CABG, CKD requiring dialysis, poor pulm function requiring oxygen at nursing facility who presents with R groin abscess that has been present for several weeks after heart catheterization. He subsequently developed a hematoma which then became infected forming an abscess. He does not report any systemic symptoms, but does have chronic drainage from the wound; Local wound care was attempted, but he was sent to my clinic for further evaluation and subsequently admitted directly from my wound clinic Past Med Surg Social Fam HX - Past Medical History Medical history: COPD, coronary artery disease, diabetes, GI bleed, hyperlipidemia, hypertension Additional medical history: CKD, Gout, psychosis, Resp. Failure, Vit. B deficient. Psychiatric history: anxiety - Past Surgical History Surgical History: coronary bypass (CABG), tracheostomy - Social History Smoking Status: Former smoker Smokeless Tobacco Status: Yes (patch) Alcohol use: none Drug use: none - Family History Mother Living Status: Hx Family Cardiac Disorders: Yes Hx Family Respiratory Disorders: No Hx Family Cancer: Yes Hx Family GI Disorders: Yes Hx Family Endocrine Disorder: Yes Hx Family Neuromuscular Disorders: No Hx Family Neurologic Disorders: No Hx Family HEENT Disorders: No Hx Family Autoimmune Disorders: No Father Adopted: No Family Member Ethnicity: Non- Living Status: Hx Family Cardiac Disorders: Yes Hx Family Respiratory Disorders: No Hx Family Cancer: No Hx Family GI Disorders: No Hx Family Endocrine Disorder: No Hx Family Neuromuscular Disorders: No Hx Family Neurologic Disorders: No Hx Family HEENT Disorders: No Hx Family Autoimmune Disorders: No Medications and Allergies Albuterol Sulfate [Proair Hfa] 1 - 2 puff IH Q4H PRN 01/13/18 [History] Ascorbate Calcium [Vitamin C] 500 mg PO DAILY 01/13/18 [History] Nicotine Patch [Nicoderm] 14 mg TD DAILY 01/13/18 [History] [employer]/Dha/Epa/Fish Oil [Fish Oil [employer] EC 1,200 mg] 1 cap PO DAILY 01/13/18 [History] Sucralfate [Carafate] 1 gm PO QIDAC #30 tablet 01/18/18 [Rx] Acetaminophen [Tylenol] 325 mg PO Q8HR PRN 05/01/18 [History] Methyl Salicylate/Menthol [Arthritis Hot Pain Relief Crm] 85 gm TP DAILY PRN 05/01/18 [History] Nitroglycerin [Nitrostat] 0.4 mg SL DAILY PRN 05/01/18 [History] Allopurinol [Zyloprim 100 MG] 100 mg PO DAILY 09/03/18 [History] Apixaban [Eliquis] 2.5 mg PO BID 09/03/18 [History] Aspirin [Lo-Dose Aspirin EC] 81 mg PO DAILY 09/03/18 [History] Atorvastatin Calcium [Lipitor] 80 mg PO DAILY 09/03/18 [History] Budesonide/Formoterol 160/4.5 [Symbicort 160/4.5] 1 puff IH BIDR 09/03/18 [History] Digoxin [Lanoxin] 0.125 mg PO QOD 09/03/18 [History] Gabapentin [Neurontin] 100 mg PO BID 09/03/18 [History] GuaiFENesin ER [Mucinex] 600 mg PO BID 09/03/18 [History] Ibuprofen [Motrin] 400 mg PO Q6HR PRN 09/03/18 [History] Insulin Glargine [Lantus] 5 unit SQ DAILY 09/03/18 [History] Insulin Regular Human [HumuLIN R] 0 unit SQ TIDWM 09/03/18 [History] Ipratropium/Albuterol Neb [Duoneb] 3 ml IH Q4HR 09/03/18 [History] Isosorbide DInitrate [Isordil] 10 mg PO TIDAC 09/03/18 [History] Lidocaine Patch [Lidoderm 5% patch] 1 each TP DAILY 09/03/18 [History] Lidocaine Patch [Lidoderm 5% patch] 1 each TP DAILY 09/03/18 [History] Lidocaine Patch [Lidoderm 5% patch] 1 each TP DAILY 09/03/18 [History] Melatonin 3 mg PO HS 09/03/18 [History] MethylPREDNISolone [MethylPREDNISolone Dose Pack] 4 mg PO DAILY 09/03/18 [History] Metoprolol [Lopressor] 12.5 mg PO BID 09/03/18 [History] Pantoprazole Sodium [Protonix] 40 mg PO DAILY 09/03/18 [History] Quetiapine Fumarate [Seroquel] 50 mg PO HS 09/03/18 [History] Renal Vitamin [Renal Caps Softgel] 1 mg PO DAILY 09/03/18 [History] Sevelamer Carbonate [Renvela] 2.4 gm PO TIDWM 09/03/18 [History] hydrALAZINE [HydrALAZINE] 10 mg PO Q8HR 09/03/18 [History] Allergy/AdvReac Type Severity Reaction Status Date / Time No Known Allergies Allergy Verified 01/13/18 21:28 Review of Systems All systems PM: 12 point ROS negative besides HPI findings General Surgery Exam Initial Vital Signs Temp Pulse Resp BP Pulse Ox 97.8 F 73 15 149/69 98 09/03/18 16:47 09/03/18 16:47 09/03/18 16:47 09/03/18 16:47 09/03/18 16:47 - General physical appearance no distress - Eyes normal ocular movement - ENT normocephalic - Respiratory normal expansion, normal respiratory effort, other (audible wheezes) - Cardiovascular Cardiovascular exam: Present: RRR - Abdomen Abdomen general surgery: Present: soft, non tender - Genitourinary Present: normal penis with no external lesions, testicles present, other (8cm right groin abscess; calloused/chronic cavity; no overlying erythema) - Integumentary Integumentary general surgery: Present: warm and dry - Neurologic Present: CN 2-12 grossly intact - Musculoskeletal Present: normal posture - Psychiatric Psychiatric general surgery: Present: A&Ox3 Results - Labs 09/03/18 19:02 09/03/18 19:02 Abnormal lab results RBC 2.84 M/mcL (4.19-5.50) L 09/03/18 19:02 Hgb 8.0 g/dL (12.9-16.9) L 09/03/18 19:02 Hct 26.3 % (37.5-50.1) L 09/03/18 19:02 MCHC 30.4 g/dL (31.6-35.5) L 09/03/18 19:02 RDW 18.6 % (11.5-14.5) H 09/03/18 19:02 Monocytes # 1.5 K/mcL (0.0-1.3) H 09/03/18 19:02 Nucleated RBCs/100 WBC 0.2 /100 WBC (0) H 09/03/18 19:02 Sodium 128 mEq/L (136-145) L 09/03/18 19:02 Chloride 94 mEq/L (98-107) L 09/03/18 19:02 BUN 37 mg/dL (8-23) H 09/03/18 19:02 Creatinine 3.38 mg/dL (0.70-1.30) H 09/03/18 19:02 Est GFR ( Amer) 22 (> 60) L 09/03/18 19:02 Est GFR (Non-Af Amer) 18 (> 60) L 09/03/18 19:02 Glucose 136 mg/dL (70-105) H 09/03/18 19:02 Calculated Osmolality 277 (280-300) L 09/03/18 19:02 Diabetes panel 09/03/18 Range/Units 19:02 Sodium 128 L (136-145) mEq/L Potassium 4.2 (3.5-5.1) mEq/L Chloride 94 L (98-107) mEq/L Carbon Dioxide 28 (23-29) mEq/L BUN 37 H (8-23) mg/dL Creatinine 3.38 H (0.70-1.30) mg/dL Glucose 136 H (70-105) mg/dL Calcium 8.6 (8.6-10.3) mg/dL Calcium panel 09/03/18 Range/Units 19:02 Calcium 8.6 (8.6-10.3) mg/dL Phosphorus 4.2 (2.7-4.5) mg/dL Pituitary panel 09/03/18 Range/Units 19:02 Sodium 128 L (136-145) mEq/L Potassium 4.2 (3.5-5.1) mEq/L Chloride 94 L (98-107) mEq/L Carbon Dioxide 28 (23-29) mEq/L BUN 37 H (8-23) mg/dL Creatinine 3.38 H (0.70-1.30) mg/dL Glucose 136 H (70-105) mg/dL Calcium 8.6 (8.6-10.3) mg/dL Adrenal panel 09/03/18 Range/Units 19:02 Sodium 128 L (136-145) mEq/L Potassium 4.2 (3.5-5.1) mEq/L Chloride 94 L (98-107) mEq/L Carbon Dioxide 28 (23-29) mEq/L BUN 37 H (8-23) mg/dL Creatinine 3.38 H (0.70-1.30) mg/dL Glucose 136 H (70-105) mg/dL Calcium 8.6 (8.6-10.3) mg/dL All other labs normal.
[2018-09-03 21:56] LABS: Magnesium 2.3 mg/dL (1.6-2.6); Phosphorous 4.4 mg/dL (2.7-4.5)
[2018-09-04] MEDS: *HR* Heparin 5,000 UNIT/ML VIAL SQ SCH ×2 (04:50→17:17)
[2018-09-04 05:17] LABS: Calcium 8.2 mg/dL (8.6-10.3); Potassium 4.6 mEq/L (3.5-5.1)
[2018-09-04 06:40] LABS: Basophils % 0.2 %; Eosinophils # 0.4 K/mcL (0.0-0.6); Eosinophils % 3.4 %; Hematocrit 26.4 % (37.5-50.1); Lymphocytes # 0.8 K/mcL (0.6-4.6); Lymphocytes % 6.3 %; Mean Corpuscular HGB Conc 30.3 g/dL (31.6-35.5); Mean Corpuscular Hemoglobin 27.8 pg (28.0-33.3); Mean Corpuscular Volume 91.7 fL (83.0-100.0); Monocytes # 1.6 K/mcL (0.0-1.3); Monocytes % 13.4 %; Neutrophils # 9.2 K/mcL (1.6-8.9); Nucleated Red Blood Cells 0.2 /100 WBC (0); Platelet Count 234 K/mcL (140-400); Red Blood Count 2.88 M/mcL (4.19-5.50); Red Cell Distribution Width 18.8 % (11.5-14.5); Segmented Neutrophils % 74.7 %
[2018-09-04] MEDS: Ipratropium/Albuterol Neb 3 ML IH PRN ×2 (08:10→17:30)
[2018-09-04 08:11] LABS: Hepatitis B Surface Antibody 0.49 mIU/mL; Hepatitis B Surface Antigen Nonreactive (Nonreactive)
--- NOTE | 2018-09-04 08:48 | General Surgery Progress Note ---
Date of Encounter: 09/04/18 Time of Encounter: 08:45 - Assessment and Plan (1) Abscess of right groin Current Visit: Yes Status: Acute 68M with multiple comorbidities with chronic R groin wound/abscess; diet as tolerated HD today consult cardiology for risk stratification discussed case with anesthesia; awaiting their evaluation; possible spinal vs MA C vs general restart home meds pulm toilet TF at night per home regimen plan for surgery on 09/05 Subjective Patient reports: no new complaints, tolerating a regular diet Objective Vital Signs - Last 8 Hours Temp Pulse Resp BP Pulse Ox 09/04/18 08:20 94 09/04/18 07:50 98.5 F 73 17 144/81 90 09/04/18 05:04 98.2 F 69 18 128/53 91 Intake and Output 09/03/18 09/04/18 09/04/18 23:59 07:59 15:59 Intake Total 120 / 120 60 / 60 Output Total 0 / 0 Balance 120 / 120 60 / 60 Intake: Oral 120 / 120 60 / 60 Output: Urine 0 / 0 Other: Weight 104.326 kg 98.5 kg Blood Glucose* 154 148 Patient Weight 09/04/18 23:59 Weight 98.5 kg - General physical appearance no distress - Respiratory normal expansion, normal respiratory effort - Cardiovascular Cardiovascular exam: Present: RRR - Abdomen Abdomen: Present: soft - Genitourinary other (large, chronic abscess/wound in R groin) - Integumentary no rash - Neurologic CN 2-12 grossly intact - Musculoskeletal normal posture - Psychiatric oriented to time, oriented to person, oriented to place - Labs 09/04/18 05:52 09/04/18 04:45 Diabetes panel 09/03/18 09/04/18 Range/Units 19:02 04:45 Sodium 128 L 127 L (136-145) mEq/L Potassium 4.2 4.6 (3.5-5.1) mEq/L Chloride 94 L 95 L (98-107) mEq/L Carbon Dioxide 28 22 L (23-29) mEq/L BUN 37 H 41 H (8-23) mg/dL Creatinine 3.38 H 3.60 H (0.70-1.30) mg/dL Glucose 136 H 152 H (70-105) mg/dL Calcium 8.6 8.2 L (8.6-10.3) mg/dL Calcium panel 09/03/18 09/03/18 09/04/18 Range/Units 19:02 21:27 04:45 Calcium 8.6 8.2 L (8.6-10.3) mg/dL Phosphorus 4.2 4.4 (2.7-4.5) mg/dL Pituitary panel 09/03/18 09/04/18 Range/Units 19:02 04:45 Sodium 128 L 127 L (136-145) mEq/L Potassium 4.2 4.6 (3.5-5.1) mEq/L Chloride 94 L 95 L (98-107) mEq/L Carbon Dioxide 28 22 L (23-29) mEq/L BUN 37 H 41 H (8-23) mg/dL Creatinine 3.38 H 3.60 H (0.70-1.30) mg/dL Glucose 136 H 152 H (70-105) mg/dL Calcium 8.6 8.2 L (8.6-10.3) mg/dL Adrenal panel 09/03/18 09/04/18 Range/Units 19:02 04:45 Sodium 128 L 127 L (136-145) mEq/L Potassium 4.2 4.6 (3.5-5.1) mEq/L Chloride 94 L 95 L (98-107) mEq/L Carbon Dioxide 28 22 L (23-29) mEq/L BUN 37 H 41 H (8-23) mg/dL Creatinine 3.38 H 3.60 H (0.70-1.30) mg/dL Glucose 136 H 152 H (70-105) mg/dL Calcium 8.6 8.2 L (8.6-10.3) mg/dL
[2018-09-04] MEDS ORDERED: Dextrose Gel 15 GM/37.5 ML TUBE PO PRN ×2 (08:54)
[2018-09-04] MEDS ORDERED: D5% in Water 1,000 ML IVC PRN (08:54)
[2018-09-04] MEDS ORDERED: *HR* Dextrose 50 % in Water (Syg) 50 ML SYRINGE IVP PRN (08:54)
[2018-09-04] MEDS ORDERED: *HR* Digoxin 0.125 MG TABLET PO SCH (09:00)
[2018-09-04 09:25] LABS: Estimated Average Glucose 189 mg/dl; Hemoglobin A1C 8.2 %
[2018-09-04] MEDS: Aspirin Enteric Coated 81 MG Tablet PO SCH (10:21)
[2018-09-04] MEDS: Gabapentin 100 MG CAPSULE PO SCH ×2 (10:23→20:09)
[2018-09-04] MEDS: Budesonide/Formoterol 160/4.5 1 PUFF INH IH SCH ×2 (10:34→20:04)
[2018-09-04] MEDS ORDERED: 0.9 % Sodium Chloride 250 ML IVC PRN (10:48)
--- NOTE | 2018-09-04 10:48 | Cardiology Consult Note ---
Addendum entered and electronically signed by Bhupendra Ramsey MD 09/04/18 13:18: I examined this patient and my medical decision-making was reviewed with the JUMBO OPERATOR. I agree with the documented findings, disposition and treatment plan as described except to the extent set forth below. A/P: Preop evaluation for right groin abscess w history of hematoma CAD sp CABG ESRD CHF Patient sp [facility] by colleague in April with report below. Acceptable high risk for intermediate risk surgery. Will need to have dialysis 2/2 fluid overload prior to surgery. Thank you for the consult, Bhupendra Ramsey MD [facility] Original Note: Date of Encounter: 09/04/18 Time of Encounter: 10:46 Assessment and Plan (1) Pre-operative cardiovascular examination Current Visit: Yes Status: Acute Pre-op risk stratification for groin abscess surgical intervention with Dr. Azul. Known CAD with hx of CABG. [facility] 05/01/18: Severe 3V CAD. EF 55%. S/P CABG 3 of 3 patent bypass grafts. SVG- RCA has a long 90% prox, distal vessel has some collateral circulation, vein graft appears to be degenerating. Would not approach percutaneously unless unable to control symptoms with optimal medical treatment. TTE 01/14/18: LVEF 50-55%. Definity echo contrast was used. Mild LVDD. Mildly dilated LV. RV is not well visualized. Mild MR. No phtn. Pt denies chest pain. Poor functional capacity--unable to stand or ambulate. Endorses dyspnea this AM and O2 dropping to 80s at bedside. CXR ordered. Reviewed [facility] films with interventionalist. Agrees with continued medical management of his CAD. Intervention would not change his surgical risk. From cardiac perspective, high risk for a necessary surgery. Will discuss and review with Dr. Ramsey. (2) Dyspnea Current Visit: Yes Status: Acute Known COPD, on chronic O2, is s/p trach. Reports acute onset of dyspnea this AM. O2 dropping into 80s at bedside. STAT CXR ordered to further evaluate. Qualifiers: Dyspnea type: unspecified Qualified Code(s): R06.00 - Dyspnea, unspecified (3) CAD (coronary artery disease) Current Visit: Yes Status: Chronic As above, hx CABG. Most recent [facility] 04/2018 without intervention. Continue ASA, Statin, BB. Qualifiers: Coronary Disease-Associated Artery/Lesion type: bypass graft [place] vs. transplanted heart: [place] heart Associated angina: without angina Qualified Code(s): I25.810 - Atherosclerosis of coronary artery bypass graft(s) without angina pectoris (4) A-fib Current Visit: Yes Status: Chronic A-Fib on telemetry, rate controlled. 12 hr tele AVG HR 74. Continue BB and Digoxin--renally dosed. [id number] (Age, DM, CAD, HTN). High CVA risk. However, had acute blood loss anemia earlier this year with positive stool occult blood with HGB as low as 6.6 warranting transfusion. Given anemia and hx GI bleed, recommend ASA only. Pt aware of increased CVA risk. Qualifiers: Atrial fibrillation type: unspecified Qualified Code(s): I48.91 - Unspecified atrial fibrillation Discussion w patient/family: The assessment and plan as outlined above was discussed with the patient and/or family members who expressed understanding and agreement. All questions were answered. Thank you for involving us in the care of your patient. Please call with any questions. I will discuss all the above with Dr. Ramsey and make changes as necessary. History of Present Illness Consult date: 09/04/18 Requesting physician: Vinh Azul Consult reason: pre-op risk stratification Chief complaint: dyspnea History of present illness: Mr. Sanon is a 68 year old male with PMH of CAD s/p CABG, ESRD on dialysis, A- Fib, O2 dependent, s/p trach, resides at [facility] who presents with R groin abscess that started post [facility] in April. He subsequently developed a hematoma which then became infected forming an abscess. Surgical intervention planned with Dr. Azul. Cardiology consulted for pre-op risk stratification. Denies chest pain. Reports dyspnea that started this AM. O2 sats at bedside are dropping into the 80s. [facility] 04/2018 3/3 patent grafts, no intervention. Poor functional capacity, unable to stand or ambulate. Prior CV testing: [facility] 05/01/18: There is severe three vessel coronary artery disease. The left ventricle is normal and has normal contractility EF 55%. S/P CABG 3 of 3 patent bypass grafts. SVG-RCA has a long 90% prox, distal vessel has some collateral circulation, vein graft appears to be degenerating. Would not approach percutaneously unless unable to control symptoms with optimal medical treatment. TTE 01/14/18: LVEF 50-55%.Definity echo contrast was used. Mild left ventricular diastolic dysfunction. Mildly dilated left ventricle. RV is not well visualized. Mild mitral regurgitation. No pulmonary hypertension. Past Med Surg Social Fam HX - Past Medical History Medical history: COPD, coronary artery disease, diabetes, GI bleed, hyperlipidemia, hypertension Additional medical history: CKD, Gout, psychosis, Resp. Failure, Vit. B deficient. Psychiatric history: anxiety - Past Surgical History Surgical History: coronary bypass (CABG), tracheostomy - Social History Smoking Status: Former smoker Smokeless Tobacco Status: Yes (patch) Alcohol use: none Drug use: none - Family History Mother Living Status: Hx Family Cardiac Disorders: Yes Hx Family Respiratory Disorders: No Hx Family Cancer: Yes Hx Family GI Disorders: Yes Hx Family Endocrine Disorder: Yes Hx Family Neuromuscular Disorders: No Hx Family Neurologic Disorders: No Hx Family HEENT Disorders: No Hx Family Autoimmune Disorders: No Father Adopted: No Family Member Ethnicity: Non- Living Status: Hx Family Cardiac Disorders: Yes Hx Family Respiratory Disorders: No Hx Family Cancer: No Hx Family GI Disorders: No Hx Family Endocrine Disorder: No Hx Family Neuromuscular Disorders: No Hx Family Neurologic Disorders: No Hx Family HEENT Disorders: No Hx Family Autoimmune Disorders: No Medications and Allergies Albuterol Sulfate [Proair Hfa] 1 - 2 puff IH Q4H PRN 01/13/18 [History] Ascorbate Calcium [Vitamin C] 500 mg PO DAILY 01/13/18 [History] Nicotine Patch [Nicoderm] 14 mg TD DAILY 01/13/18 [History] [employer] [place]-3/Dha/Epa/Fish Oil [Fish Oil [employer] [place]-[employer] EC 1,200 mg] 1 cap PO DAILY 01/13/18 [History] Sucralfate [Carafate] 1 gm PO QIDAC #30 tablet 01/18/18 [Rx] Acetaminophen [Tylenol] 325 mg PO Q8HR PRN 05/01/18 [History] Methyl Salicylate/Menthol [Arthritis Hot Pain Relief Crm] 85 gm TP DAILY PRN 05/01/18 [History] Nitroglycerin [Nitrostat] 0.4 mg SL DAILY PRN 05/01/18 [History] Allopurinol [Zyloprim 100 MG] 100 mg PO DAILY 09/03/18 [History] Apixaban [Eliquis] 2.5 mg PO BID 09/03/18 [History] Aspirin [Lo-Dose Aspirin EC] 81 mg PO DAILY 09/03/18 [History] Atorvastatin Calcium [Lipitor] 80 mg PO DAILY 09/03/18 [History] Budesonide/Formoterol 160/4.5 [Symbicort 160/4.5] 1 puff IH BIDR 09/03/18 [History] Digoxin [Lanoxin] 0.125 mg PO QOD 09/03/18 [History] Gabapentin [Neurontin] 100 mg PO BID 09/03/18 [History] GuaiFENesin ER [Mucinex] 600 mg PO BID 09/03/18 [History] Ibuprofen [Motrin] 400 mg PO Q6HR PRN 09/03/18 [History] Insulin Glargine [Lantus] 5 unit SQ DAILY 09/03/18 [History] Insulin Regular Human [HumuLIN R] 0 unit SQ TIDWM 09/03/18 [History] Ipratropium/Albuterol Neb [Duoneb] 3 ml IH Q4HR 09/03/18 [History] Isosorbide DInitrate [Isordil] 10 mg PO TIDAC 09/03/18 [History] Lidocaine Patch [Lidoderm 5% patch] 1 each TP DAILY 09/03/18 [History] Lidocaine Patch [Lidoderm 5% patch] 1 each TP DAILY 09/03/18 [History] Lidocaine Patch [Lidoderm 5% patch] 1 each TP DAILY 09/03/18 [History] Melatonin 3 mg PO HS 09/03/18 [History] Metoprolol [Lopressor] 12.5 mg PO BID 09/03/18 [History] Pantoprazole Sodium [Protonix] 40 mg PO DAILY 09/03/18 [History] Quetiapine Fumarate [Seroquel] 50 mg PO HS 09/03/18 [History] Renal Vitamin [Renal Caps Softgel] 1 mg PO DAILY 09/03/18 [History] Sevelamer Carbonate [Renvela] 2.4 gm PO TIDWM 09/03/18 [History] hydrALAZINE [HydrALAZINE] 10 mg PO Q8HR 09/03/18 [History] Allergy/AdvReac Type Severity Reaction Status Date / Time No Known Allergies Allergy Verified 01/13/18 21:28 All Systems Review: The remainder of the systems were reviewed and are negative - Cardiovascular Cardiovascular: dyspnea at rest - Respiratory Respiratory: dyspnea Physical Examination Vital Signs, Last 4 Hours Temp Pulse Resp BP Pulse Ox 09/04/18 08:20 94 09/04/18 08:10 15 92 09/04/18 07:50 98.5 F 73 17 144/81 90 Vital Signs Temp Pulse Resp BP Pulse Ox 09/04/18 08:20 94 09/04/18 08:10 15 92 09/04/18 07:50 98.5 F 73 17 144/81 90 09/04/18 05:04 98.2 F 69 18 128/53 91 09/04/18 00:21 98.7 F 76 18 153/68 96 09/03/18 20:11 98.1 F 84 17 138/63 93 09/03/18 16:47 97.8 F 73 15 149/69 98 Intake and Output 09/03/18 09/04/18 09/04/18 23:59 07:59 15:59 Intake Total 120 / 120 60 / 60 0 / 0 Output Total 0 / 0 Balance 120 / 120 60 / 60 0 / 0 Intake: Oral 120 / 120 60 / 60 0 / 0 Output: Urine 0 / 0 Other: Meal Breakfast Percent of Meal Consumed 0% Stool Size Moderate Stool Consistency formed Stool Color Brown Weight 104.326 kg 98.5 kg Blood Glucose* 154 148 Patient Weight 09/04/18 23:59 Weight 98.5 kg General: Conversant, No Apparent Distress HEENT: Atraumatic, Normocephaly, Mucus Membranes Moist Neck: Normal carotid pulses Cardiac: Other (irregularly irregular) Lungs: Other (diminished) Neuro: Alert and responsive, No focal deficits noted Abdomen: Soft, Non-Tender Skin: Other (groin abscess) Musculoskeletal: No Chest Wall Tenderness Extremities: No Clubbing, No Cyanosis, No Edema, Normal Pulses Results 09/04/18 05:52 09/04/18 04:45 Lab Results 09/03/18 09/03/18 09/03/18 19:02 19:02 19:02 WBC 10.5 Hgb 8.0 L Hct 26.3 L Plt Count 227 INR 1.1 Sodium 128 L Potassium 4.2 Chloride 94 L Carbon Dioxide 28 BUN 37 H Creatinine 3.38 H Glucose 136 H Calcium 8.6 Magnesium 2.3 09/03/18 09/04/18 09/04/18 21:27 04:45 05:52 WBC 12.3 H Hgb 8.0 L Hct 26.4 L Plt Count 234 INR Sodium 127 L Potassium 4.6 Chloride 95 L Carbon Dioxide 22 L BUN 41 H Creatinine 3.60 H Glucose 152 H Calcium 8.2 L Magnesium 2.3 Short CBC 09/04/18 09/03/18 Range/Units 05:52 19:02 WBC 12.3 H 10.5 (4.3-11.1) K/mcL Hgb 8.0 L 8.0 L (12.9-16.9) g/dL Hct 26.4 L 26.3 L (37.5-50.1) % Plt Count 234 227 (140-400) K/mcL Neutrophils # 9.2 H 7.6 (1.6-8.9) K/mcL BMP 09/04/18 09/03/18 Range/Units 04:45 19:02 Sodium 127 L 128 L (136-145) mEq/L Potassium 4.6 4.2 (3.5-5.1) mEq/L Chloride 95 L 94 L (98-107) mEq/L Carbon Dioxide 22 L 28 (23-29) mEq/L BUN 41 H 37 H (8-23) mg/dL Creatinine 3.60 H 3.38 H (0.70-1.30) mg/dL Glucose 152 H 136 H (70-105) mg/dL Calcium 8.2 L 8.6 (8.6-10.3) mg/dL Active Medications Acetaminophen (Tylenol) 325 mg PO Q6HR PRN PRN Reason: mild to moderate pain Stop: 03/05/19 18:30 Last Admin: 09/04/18 05:38 Dose: 325 mg Albuterol Sulfate (Albuterol Inhaler) 2 puff IH [id number] PRN PRN Reason: Shortness Of Breath Stop: 03/06/19 08:50 Albuterol/Ipratropium (Duoneb) 3 ml IH [id number] PRN PRN Reason: Shortness Of Breath/Wheezing Stop: 03/06/19 08:45 Last Admin: 09/04/18 08:10 Dose: 3 ml Albuterol/Ipratropium (Duoneb) 3 ml IH [id number] Stop: 03/06/19 12:01 Last Admin: 09/04/18 11:12 Dose: 3 ml Allopurinol (Zyloprim) 100 mg PO DAILY [facility] Stop: 03/06/19 09:01 Last Admin: 09/04/18 10:22 Dose: 100 mg Aspirin (Aspirin Ec) 81 mg PO DAILY [facility] Stop: 03/06/19 09:01 Last Admin: 09/04/18 10:21 Dose: 81 mg Atorvastatin Calcium (Lipitor) 80 mg PO HS [facility] Stop: 03/06/19 21:01 Budesonide/Formoterol Fumarate (Symbicort) 1 puff IH BIDR [facility]; Protocol Stop: 03/06/19 10:01 Last Admin: 09/04/18 10:34 Dose: 1 puff Dextrose/Water (Dextrose 50% (Syg)) 25 ml IVP AD PRN PRN Reason: Hypoglycemia Stop: 03/06/19 08:55 Digoxin (Lanoxin) 0.125 mg PO QOD [facility] Stop: 03/06/19 09:01 Last Admin: 09/04/18 11:06 Dose: 0.125 mg Gabapentin (Neurontin) 100 mg PO BID [facility] Stop: 03/06/19 09:01 Last Admin: 09/04/18 10:23 Dose: 100 mg Glucagon (Glucagen) 1 mg IM ONCE PRN PRN Reason: Hypoglycemia Stop: 03/06/19 08:55 Glucose (Gluctose) 15 gm PO ONCE PRN PRN Reason: Hypoglycemia Stop: 03/06/19 08:55 Glucose (Gluctose) 30 gm PO ONCE PRN PRN Reason: Hypoglycemia Stop: 03/06/19 08:55 Guaifenesin (Mucinex) 600 mg PO BID [facility] Stop: 03/06/19 09:01 Last Admin: 09/04/18 10:21 Dose: 600 mg Heparin Sodium (Porcine) (Heparin) 5,000 unit SQ Q12HCO [facility] Stop: 03/06/19 06:01 Last Admin: 09/04/18 04:50 Dose: 5,000 unit Hydralazine HCl (Hydralazine) 10 mg PO TID [facility] Stop: 03/06/19 15:01 Dextrose (Dextrose 5%) 1,000 mls @ 100 mls/hr IVC .Q10H PRN PRN Reason: HYPOGLYCEMIA Stop: 03/06/19 08:55 Insulin Human Lispro (Humalog) 0 units SQ HS [facility]; Protocol Stop: 03/06/19 21:01 Insulin Human Lispro (Humalog) 0 units SQ TIDAC [facility]; Protocol Stop: 03/06/19 11:31 Isosorbide Dinitrate (Isordil) 10 mg PO TIDAC [facility] Stop: 03/06/19 11:31 Lidocaine HCl (Lidoderm 5% Patch) 3 each TP DAILY [facility] Stop: 03/06/19 09:16 Melatonin (Melatonin) 3 mg PO HS [facility] Stop: 03/06/19 21:01 Metoprolol Tartrate (Lopressor) 12.5 mg PO BID [facility] Stop: 03/06/19 09:01 Last Admin: 09/04/18 10:23 Dose: 12.5 mg Naloxone HCl (Narcan) 0.4 mg IVP Q2MIN PRN PRN Reason: SEE COMMENTS Stop: 03/05/19 20:55 Omeprazole (Prilosec) 40 mg PO DAILY [facility] Stop: 03/06/19 09:01 Last Admin: 09/04/18 10:23 Dose: 40 mg Quetiapine Fumarate (Seroquel) 50 mg PO HS [facility] Stop: 03/06/19 21:01 Sucralfate (Carafate) 1 gm PO QIDAC [facility] Stop: 03/06/19 11:31 - Imaging and Cardiology Echo: report reviewed Cardiac cath: report reviewed - EKG Interpretation EKG results cardiology: other (12 hr tele AVG HR 74, A-Fib.) Consult Discharge Plan - Plan Referrals: NONE,PCP [Primary Care Provider] -
[2018-09-04] MEDS ORDERED: 0.9 % Sodium Chloride 1,000 ML PRIME SCH (11:00)
[2018-09-04] MEDS: Ipratropium/Albuterol Neb 3 ML IH SCH ×4 (11:12→23:01)
[2018-09-04] MEDS ORDERED: *HR* Heparin 10,000 UNIT/10 ML VIAL IV PRN (11:20)
--- NOTE | 2018-09-04 12:08 | Nephrology Consult Note ---
Date of Encounter: 09/04/18 Time of Encounter: 12:00 Assessment and Plan (1) ESRD (end stage renal disease) on dialysis Current Visit: Yes Status: Acute Will perform HD today with UF goal of 2-3kg as tolerated Continue renal diet Fluid restriction at 1.5liter a day advised (2) Abscess of right groin Current Visit: Yes Status: Acute Per surgery, OR planned tomorrow (3) Dyspnea Current Visit: Yes Status: Acute Likely multifactorial given significant pulm history but HD would address any fluid overload Qualifiers: Dyspnea type: unspecified Qualified Code(s): R06.00 - Dyspnea, unspecified (4) Anemia Current Visit: Yes Status: Acute Hgb noted at 8, stable likely due to chronic illness Will consider aranesp if stay prolonged Qualifiers: Anemia type: due to chronic kidney disease Chronic kidney disease stage: on chronic dialysis Qualified Code(s): N18.6 - End stage renal disease; D63.1 - Anemia in chronic kidney disease; Z99.2 - Dependence on renal dialysis History of Present Illness - Reason for Consult Consult date: 09/04/18 end stage renal disease Requesting physician: Vinh Azul - History of Present Illness 68 y o male with PMH of DM, HTN, Chronic resp. failure with trach collar and COPD, CAD s/p CABG and ESRD residing at the [facility] here he recei ves his dialysis M-W-F admitted from the wound clinic with R groin abcess after recent LHC. Renal consulted for continuation of his dialytic needs. Pt seen and examined in visble respiratory distress but able to speak with pauses. Pt is a poor historian and does not actually remember why he is admitted. No family at bedside. Past Med Surg Social Fam HX - Past Medical History Medical history: COPD, coronary artery disease, diabetes, GI bleed, hyperlipidemia, hypertension Additional medical history: CKD, Gout, psychosis, Resp. Failure, Vit. B deficient. Psychiatric history: anxiety - Past Surgical History Surgical History: coronary bypass (CABG), tracheostomy - Social History Smoking Status: Former smoker Smokeless Tobacco Status: Yes (patch) Alcohol use: none Drug use: none - Family History Mother Living Status: Hx Family Cardiac Disorders: Yes Hx Family Respiratory Disorders: No Hx Family Cancer: Yes Hx Family GI Disorders: Yes Hx Family Endocrine Disorder: Yes Hx Family Neuromuscular Disorders: No Hx Family Neurologic Disorders: No Hx Family HEENT Disorders: No Hx Family Autoimmune Disorders: No Father Adopted: No Family Member Ethnicity: Non- Living Status: Hx Family Cardiac Disorders: Yes Hx Family Respiratory Disorders: No Hx Family Cancer: No Hx Family GI Disorders: No Hx Family Endocrine Disorder: No Hx Family Neuromuscular Disorders: No Hx Family Neurologic Disorders: No Hx Family HEENT Disorders: No Hx Family Autoimmune Disorders: No Medications and Allergies Ascorbate Calcium [Vitamin C] 500 mg PO DAILY 01/13/18 [History] [place]-3/Dha/Epa/Fish Oil [Fish Oil [place]-3 EC 1,200 mg] 1 cap PO DAILY 01/13/18 [History] Acetaminophen [Tylenol] 325 mg PO Q8HR PRN 05/01/18 [History] Nitroglycerin [Nitrostat] 0.4 mg SL DAILY PRN 05/01/18 [History] Allopurinol [Zyloprim 100 MG] 100 mg PO DAILY 09/03/18 [History] Apixaban [Eliquis] 2.5 mg PO BID 09/03/18 [History] Aspirin [Lo-Dose Aspirin EC] 81 mg PO DAILY 09/03/18 [History] Atorvastatin Calcium [Lipitor] 80 mg PO DAILY 09/03/18 [History] Budesonide/Formoterol 160/4.5 [Symbicort 160/4.5] 2 puff IH BID 09/03/18 [History] Digoxin [Lanoxin] 0.125 mg PO Q48H 09/03/18 [History] Gabapentin [Neurontin] 100 mg PO BID 09/03/18 [History] GuaiFENesin ER [Mucinex] 600 mg PO BID 09/03/18 [History] Insulin Glargine [Lantus] 5 unit SQ DAILY 09/03/18 [History] Insulin Regular Human [HumuLIN R] 0 unit SQ ACHS 09/03/18 [History] Ipratropium/Albuterol Neb [Duoneb] 3 ml IH Q4HR PRN 09/03/18 [History] Isosorbide DInitrate [Isordil] 10 mg PO TIDAC 09/03/18 [History] Lidocaine Patch [Lidoderm 5% patch] 1 each TP DAILY 09/03/18 [History] Lidocaine Patch [Lidoderm 5% patch] 1 each TP DAILY 09/03/18 [History] Lidocaine Patch [Lidoderm 5% patch] 1 each TP DAILY 09/03/18 [History] Melatonin 3 mg PO HS 09/03/18 [History] Metoprolol [Lopressor] 12.5 mg PO BID 09/03/18 [History] Pantoprazole Sodium [Protonix] 40 mg PO DAILY 09/03/18 [History] Quetiapine Fumarate [Seroquel] 50 mg PO HS 09/03/18 [History] Renal Vitamin [Renal Caps Softgel] 1 mg PO DAILY 09/03/18 [History] Sevelamer Carbonate [Renvela] 2.4 gm PO TID 09/03/18 [History] hydrALAZINE [HydrALAZINE] 10 mg PO Q8HR 09/03/18 [History] Ammonium Lactate [Amlactin] 30 appl TP BID 09/04/18 [History] Hydrocortisone 2.5% CREAM [Cortaid] 1 appl TP BID PRN 09/04/18 [History] Ibuprofen [Motrin Ib] 400 mg PO Q6H PRN 09/04/18 [History] Nicotine Patch [Nicoderm] 7 mg TD DAILY 09/04/18 [History] Sucralfate [Carafate] 1 gm PO Q6H 09/04/18 [History] methylPREDNISolone [Medrol] 4 mg PO DAILY 09/04/18 [History] Allergy/AdvReac Type Severity Reaction Status Date / Time No Known Allergies Allergy Verified 01/13/18 21:28 Review of Systems All Systems review (narrative): The rest of the systems are negative Constitutional: anorexia (denies), fever(s) (denies), lethargy (admits) Nose, mouth and throat: dry mouth (denies), neck pain (denies) Cardiovascular: chest pain (denies), leg edema (denies) Respiratory: dyspnea (admits) Exam - Vital Signs Vital signs: Initial Vital Signs Temp Pulse Resp BP Pulse Ox 97.8 F 73 15 149/69 98 09/03/18 16:47 09/03/18 16:47 09/03/18 16:47 09/03/18 16:47 09/03/18 16:47 Vital Signs - Last 8 Hours Temp Pulse Resp BP Pulse Ox 09/04/18 10:35 20 94 09/04/18 08:20 94 09/04/18 08:10 15 92 09/04/18 07:50 98.5 F 73 17 144/81 90 09/04/18 05:04 98.2 F 69 18 128/53 91 Intake and Output 09/03/18 09/04/18 09/04/18 23:59 07:59 15:59 Intake Total 120 / 120 60 / 60 0 / 0 Output Total 0 / 0 Balance 120 / 120 60 / 60 0 / 0 Intake: Oral 120 / 120 60 / 60 0 / 0 Output: Urine 0 / 0 Other: Meal Breakfast Percent of Meal Consumed 0% Stool Size Moderate Stool Consistency formed Stool Color Brown Weight 104.326 kg 98.5 kg Blood Glucose* 154 148 Patient Weight 09/04/18 23:59 Weight 98.5 kg - General Appearance General appearance: moderate distress, chronically ill, fatigue EENT: ATNC, mucous membranes moist Additional Comments: trach collar noted and face mask in place Neck: supple Respiratory: course breath sounds Cardiology: no edema, normal S1, normal S2 - Dialysis Access Dialysis Vascular Access: Venous Catheter (permcath) Gastrointestinal: no tenderness, no guarding Integumentary: warm and dry Neurologic: confused Musculoskeletal: no deformities Psychiatric: cooperative Results - Lab Results 09/05/18 07:31 09/05/18 07:31 Most recent lab results Calcium 8.2 mg/dL (8.6-10.3) L 09/04/18 04:45 Phosphorus 4.4 mg/dL (2.7-4.5) 09/03/18 21:27 Magnesium 2.3 mg/dL (1.6-2.6) 09/03/18 21:27 Consult Discharge Plan - Plan Referrals: NONE,PCP [Primary Care Provider] -
[2018-09-04] MEDS: Sucralfate 1 GM TABLET PO SCH ×3 (13:29→20:09)
[2018-09-04] MEDS: Insulin LISPRO 300 UNITS/3 ML VIAL SQ SCH ×3 (13:29→20:12)
[2018-09-04] MEDS: hydrALAZINE 10 MG TABLET PO SCH ×2 (17:17→20:09)
[2018-09-04] MEDS ORDERED: Melatonin 3 MG TABLET PO SCH (21:00)
--- NOTE | 2018-09-04 21:51 | Anesthesia Evaluation PreOp ---
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: Other (PSYCHOSIS) Other Medical History: Renal (ESRD, ON HD VIA R IJ TUNNELLED CATH, LAST HD 09/04), Diabetes Type II, GERD, Other (ANEMIA, GOUT) Anesthesia History: No Prior Anesthetic Complications, Past Anesthesia Alcohol Use: none Drug use: none Medications and Allergies Ascorbate Calcium [Vitamin C] 500 mg PO DAILY 01/13/18 [History] [place]-3/Dha/Epa/Fish Oil [Fish Oil [place]-3 EC 1,200 mg] 1 cap PO DAILY 01/13/18 [History] Acetaminophen [Tylenol] 325 mg PO Q8HR PRN 05/01/18 [History] Nitroglycerin [Nitrostat] 0.4 mg SL DAILY PRN 05/01/18 [History] Allopurinol [Zyloprim 100 MG] 100 mg PO DAILY 09/03/18 [History] Apixaban [Eliquis] 2.5 mg PO BID 09/03/18 [History] Aspirin [Lo-Dose Aspirin EC] 81 mg PO DAILY 09/03/18 [History] Atorvastatin Calcium [Lipitor] 80 mg PO DAILY 09/03/18 [History] Budesonide/Formoterol 160/4.5 [Symbicort 160/4.5] 2 puff IH BID 09/03/18 [History] Digoxin [Lanoxin] 0.125 mg PO Q48H 09/03/18 [History] Gabapentin [Neurontin] 100 mg PO BID 09/03/18 [History] GuaiFENesin ER [Mucinex] 600 mg PO BID 09/03/18 [History] Insulin Glargine [Lantus] 5 unit SQ DAILY 09/03/18 [History] Insulin Regular Human [HumuLIN R] 0 unit SQ ACHS 09/03/18 [History] Ipratropium/Albuterol Neb [Duoneb] 3 ml IH Q4HR PRN 09/03/18 [History] Isosorbide DInitrate [Isordil] 10 mg PO TIDAC 09/03/18 [History] Lidocaine Patch [Lidoderm 5% patch] 1 each TP DAILY 09/03/18 [History] Lidocaine Patch [Lidoderm 5% patch] 1 each TP DAILY 09/03/18 [History] Lidocaine Patch [Lidoderm 5% patch] 1 each TP DAILY 09/03/18 [History] Melatonin 3 mg PO HS 09/03/18 [History] Metoprolol [Lopressor] 12.5 mg PO BID 09/03/18 [History] Pantoprazole Sodium [Protonix] 40 mg PO DAILY 09/03/18 [History] Quetiapine Fumarate [Seroquel] 50 mg PO HS 09/03/18 [History] Renal Vitamin [Renal Caps Softgel] 1 mg PO DAILY 09/03/18 [History] Sevelamer Carbonate [Renvela] 2.4 gm PO TID 09/03/18 [History] hydrALAZINE [HydrALAZINE] 10 mg PO Q8HR 09/03/18 [History] Ammonium Lactate [Amlactin] 30 appl TP BID 09/04/18 [History] Hydrocortisone 2.5% CREAM [Cortaid] 1 appl TP BID PRN 09/04/18 [History] Ibuprofen [Motrin Ib] 400 mg PO Q6H PRN 09/04/18 [History] Nicotine Patch [Nicoderm] 7 mg TD DAILY 09/04/18 [History] Sucralfate [Carafate] 1 gm PO Q6H 09/04/18 [History] methylPREDNISolone [Medrol] 4 mg PO DAILY 09/04/18 [History] Allergy/AdvReac Type Severity Reaction Status Date / Time No Known Allergies Allergy Verified 01/13/18 21:28 - Meds/Allergy Pre-op Review Medications Reviewed: Yes Allergies Reviewed: Yes Beta Blockers on Current Med List: Yes Anesthesia Results - Labs 09/04/18 05:52 09/04/18 04:45 - Imaging Additional studies: [facility] 04/2018: There is severe three vessel coronary artery disease. The left ventricle is normal and has normal contractility EF 55% S/P CABG 3 of 3 patent bypass grafts. * Left Main Coronary Artery There is a 99% stenosis in the Mid LMCA. * Left Anterior Descending There is a 100% stenosis in the Proximal LAD. * Circumflex There is a 100% stenosis in the Proximal Circumflex. * Right Coronary Artery There is a 100% stenosis in the Proximal RCA. Additional Findings: Grafts * The saphenous vein graft to the 1st Diagonal/OM is patent. RAYMOND flow is . * The left internal mammary graft to the Proximal LAD is patent. RAYMOND flow is . * The saphenous vein graft to the Right PDA has a 90% stenosis and is diseased throughout. [facility] 02/2018: Underlying rhythm is sinus. Occasional supraventricular ectopy. Frequent ventricular ectopy averaging 814 beats/hour and 20% of total beats. Several short runs of NSVT. No symptoms reported. STRESS TEST 02/2018: Small sized, partially fixed perfusion defect involving the distal anteroseptal wall and apex with mild worsening of perfusion in these areas during stress possibly representing ischemia. Pharmacologic stress ECG is non diagnostic for ischemia due to baseline non-specific ST and T abnormalities. Gated EF = 41%. The left ventricle is dilated. TTE 01/2018: LVEF 50-55%. Definity echo contrast was used. Mild left ventricular diastolic dysfunction. Mildly dilated left ventricle. RV is not well visualized. Mild mitral regurgitation. No pulmonary hypertension. Anesthesia Exam Vital Signs/O2 Sat/Glucose, Most Recent Temp Pulse Resp BP Pulse Ox 98.1 F 72 20 139/65 87 09/04/18 20:01 09/04/18 20:01 09/04/18 20:04 09/04/18 20:01 09/04/18 20:04 Blood Glucose* 232 Weight: 99 KG - BMI 30 Anes Supervising Prov Stmt: SIGNIFICANT Active Medications Aspirin (Aspirin Ec) 81 mg PO DAILY [facility] Stop: 03/06/19 09:01 Last Admin: 09/04/18 10:21 Dose: 81 mg Atorvastatin Calcium (Lipitor) 80 mg PO HS [facility] Stop: 03/06/19 21:01 Last Admin: 09/04/18 20:09 Dose: 80 mg Digoxin (Lanoxin) 0.125 mg PO QOD [facility] Stop: 03/06/19 09:01 Last Admin: 09/04/18 11:06 Dose: 0.125 mg Hydralazine HCl (Hydralazine) 10 mg PO TID [facility] Stop: 03/06/19 15:01 Last Admin: 09/04/18 20:09 Dose: 10 mg Isosorbide Dinitrate (Isordil) 10 mg PO TIDAC [facility] Stop: 03/06/19 11:31 Last Admin: 09/04/18 17:17 Dose: 10 mg Metoprolol Tartrate (Lopressor) 12.5 mg PO BID [facility] Stop: 03/06/19 09:01 Last Admin: 09/04/18 20:09 Dose: 12.5 mg THIS IS A CHART REVIEW ONLY. PATIENT WAS SLEEPING. PHYSICAL EXAMINATION, ANESTHESIA PLAN, AND CONSENT WERE NOT COMPLETED. BLOOD BANK TYPE AND SCREEN ORDERED.
[2018-09-05] MEDS ORDERED: 0.9 % Sodium Chloride 1,000 ML IVC SCH (00:01)
[2018-09-05] MEDS: Ipratropium/Albuterol Neb 3 ML IH SCH ×5 (03:43→20:34)
[2018-09-05] MEDS: *HR* Heparin 5,000 UNIT/ML VIAL SQ SCH ×2 (06:19→18:15)
[2018-09-05] MEDS: Budesonide/Formoterol 160/4.5 1 PUFF INH IH SCH ×3 (07:28→20:35)
[2018-09-05 07:46] LABS: Basophils % 0.3 %; Eosinophils # 0.1 K/mcL (0.0-0.6); Hemoglobin 8.5 g/dL (12.9-16.9); Immature Granulocytes % 1.7 % (0-4); Lymphocytes # 0.6 K/mcL (0.6-4.6); Lymphocytes % 5.3 %; Mean Corpuscular HGB Conc 30.4 g/dL (31.6-35.5); Mean Corpuscular Hemoglobin 28.1 pg (28.0-33.3); Mean Corpuscular Volume 92.4 fL (83.0-100.0); Mean Platelet Volume 9.8 fL (9.4-12.4); Monocytes # 1.5 K/mcL (0.0-1.3); Monocytes % 13.8 %; Neutrophils # 8.6 K/mcL (1.6-8.9); Platelet Count 222 K/mcL (140-400); Red Blood Count 3.03 M/mcL (4.19-5.50); Red Cell Distribution Width 19.2 % (11.5-14.5); Segmented Neutrophils % 77.9 %
[2018-09-05] MEDS: Insulin LISPRO 300 UNITS/3 ML VIAL SQ SCH ×5 (07:59→23:39)
[2018-09-05 08:00] LABS: Calcium 8.4 mg/dL (8.6-10.3); Magnesium 2.2 mg/dL (1.6-2.6); Phosphorous 4.9 mg/dL (2.7-4.5)
[2018-09-05] MEDS: Aspirin Enteric Coated 81 MG Tablet PO SCH (10:35)
[2018-09-05] MEDS: Gabapentin 100 MG CAPSULE PO SCH ×2 (10:35→23:41)
[2018-09-05] MEDS: hydrALAZINE 10 MG TABLET PO SCH ×3 (10:36→23:39)
[2018-09-05] MEDS: Sucralfate 1 GM TABLET PO SCH ×4 (10:36→23:44)
--- NOTE | 2018-09-05 14:57 | Nephrology Progress Note ---
Date of Encounter: 09/05/18 Time of Encounter: 12:00 - Assessment and Plan (1) ESRD (end stage renal disease) on dialysis Current Visit: Yes Status: Acute Next HD planned tomorrow Lytes stable except sodium, will monitor Continue fluid restriction Continue renal diet when able (2) Abscess of right groin Current Visit: Yes Status: Acute Per surgery, OR planned today (3) Dyspnea Current Visit: Yes Status: Acute improved Qualifiers: Dyspnea type: unspecified Qualified Code(s): R06.00 - Dyspnea, unspecified (4) Anemia Current Visit: Yes Status: Acute Qualifiers: Anemia type: due to chronic kidney disease Chronic kidney disease stage: on chronic dialysis Qualified Code(s): N18.6 - End stage renal disease; D63.1 - Anemia in chronic kidney disease; Z99.2 - Dependence on renal dialysis Subjective Interval history: Pt seen and examined more comfortable today. s/p HD yesterday Objective - Vital Signs Vital signs: Vital Signs Temp Pulse Resp BP Pulse Ox 09/05/18 11:16 14 99 09/05/18 10:00 97.8 F 85 17 128/72 98 09/05/18 07:28 16 94 09/05/18 06:46 98.3 F 87 17 154/70 98 09/05/18 04:35 98.7 F 78 18 121/60 98 09/05/18 03:44 19 97 09/04/18 23:40 98.5 F 72 18 109/53 97 09/04/18 23:01 22 100 09/04/18 20:04 20 87 09/04/18 20:01 98.1 F 72 20 139/65 89 09/04/18 16:57 97.4 F L 78 17 178/85 94 09/04/18 16:45 97.2 F L 15 132/67 09/04/18 16:30 116/59 09/04/18 16:15 145/75 09/04/18 16:00 139/72 09/04/18 15:45 149/76 09/04/18 15:30 17 147/78 95 09/04/18 15:15 152/77 09/04/18 15:00 158/73 Intake and Output 09/04/18 09/05/18 09/05/18 23:59 07:59 15:59 Intake Total 450 / 450 150 / 150 Output Total 4600 / 4600 Balance -4150 / -4150 150 / 150 Intake: Free Water 150 / 150 Free Water Intake Amount 300 / 300 150 / 150 Output: Urine 0 / 0 Total Dialysis (HD) Output 4600 / 4600 Other: Weight 98 kg Blood Glucose* 232 171 183 Hemodialysis Net Fluid Removed 4000 (mL) - General Appearance General appearance: Present: chronically ill EENT: Present: ATNC, mucous membranes moist Neck: Present: no JVD, supple Additional Comments: trach Respiratory: Present: course breath sounds Cardiology: Present: no edema, normal S1, normal S2 Dialysis Vascular Access: Venous Catheter (permcath) Gastrointestinal: Present: no tenderness, no guarding Integumentary: Present: warm and dry Neurologic: Present: no focal deficit Musculoskeletal: Present: no deformities Psychiatric: Present: cooperative - Lab 09/08/18 03:58 09/08/18 03:58 Most recent lab results Calcium 8.4 mg/dL (8.6-10.3) L 09/05/18 07:31 Phosphorus 4.9 mg/dL (2.7-4.5) H 09/05/18 07:31 Magnesium 2.2 mg/dL (1.6-2.6) 09/05/18 07:31 Consult Discharge Plan - Plan Referrals: NONE,PCP [Primary Care Provider] - (Patient is from [facility])
[2018-09-05] MEDS ORDERED: Neostigmine Methylsulfate 3 MG/3 ML SYRINGE ONE (15:29)
[2018-09-05] MEDS ORDERED: Lidocaine -MPF 2% 2 ML VIAL ONE ×2 (17:21→17:25)
[2018-09-05] MEDS ORDERED: Ondansetron 4 MG/2 ML VIAL ONE (17:21)
[2018-09-05] MEDS ORDERED: Dexamethasone 4 MG/ML VIAL ONE (17:21)
[2018-09-05] MEDS ORDERED: *HR* Propofol 200 MG/20 ML VIAL IVP ONE (17:22)
[2018-09-05] MEDS ORDERED: *HR* FentaNYL (PF) 100 MCG/2 ML VIAL ONE (17:22)
[2018-09-05] MEDS ORDERED: Vancomycin 1,000 MG VIAL ONE ×2 (17:44→18:34)
[2018-09-05] MEDS ORDERED: Acetaminophen IV 1,000 MG/100 ML INFUS..BTL ONE (17:45)
[2018-09-05] MEDS ORDERED: Piperacillin/Tazobactam 3.375 GM in Water for inj. (sterile) 20 ML 20 ML IVP STA (17:52)
[2018-09-05] MEDS ORDERED: EPHEDrine 50 MG/ML VIAL ONE ×2 (18:21→18:24)
[2018-09-05] MEDS ORDERED: *HR* Atropine Sulfate 8 MG/20 ML VIAL IVP ONE (18:25)
[2018-09-05] MEDS ORDERED: *HR* EPINEPHrine 1 MG/ML AMPUL ONE (18:29)
[2018-09-05] MEDS: Ipratropium/Albuterol Neb 3 ML IH PRN (19:13)
--- NOTE | 2018-09-05 19:42 | General Surgery Progress Note ---
Date of Encounter: 09/05/18 Time of Encounter: 19:40 - Assessment and Plan (1) Abscess of right groin Current Visit: Yes Status: Acute 68M with multiple comorbidities with chronic R groin wound/abscess; s/p excisional debridement; diet as tolerated HD tomorrow restart home meds pulm toilet TF at night per home regimen wet to dry dressing to wound Subjective Patient reports: no new complaints Objective Vital Signs - Last 8 Hours Temp Pulse Resp BP Pulse Ox 09/05/18 19:24 98.8 F 77 14 120/58 100 09/05/18 19:14 70 14 117/51 98 09/05/18 19:04 73 14 113/57 99 09/05/18 18:54 98.9 F 77 16 115/60 98 09/05/18 17:50 92 22 150/98 95 09/05/18 16:02 18 97 09/05/18 14:00 98.3 F 97 17 136/55 95 Intake and Output 09/05/18 09/05/18 09/05/18 07:59 15:59 23:59 Intake Total 150 / 150 Output Total 5 / 5 Balance 150 / 150 -5 / -5 Intake: Free Water Intake Amount 150 / 150 Output: Estimated Blood Loss 5 / 5 Other: Blood Glucose* 171 183 194 - General physical appearance no distress - Respiratory normal expansion - Cardiovascular Cardiovascular exam: Present: RRR - Genitourinary normal penis with no external lesions, other (R groin abscess/chronic wound) - Integumentary no rash - Neurologic CN 2-12 grossly intact - Labs 09/05/18 07:31 09/05/18 07:31 Diabetes panel 09/05/18 Range/Units 07:31 Sodium 126 L (136-145) mEq/L Potassium 4.0 (3.5-5.1) mEq/L Chloride 91 L (98-107) mEq/L Carbon Dioxide 26 (23-29) mEq/L BUN 29 H (8-23) mg/dL Creatinine 2.94 H (0.70-1.30) mg/dL Glucose 181 H (70-105) mg/dL Calcium 8.4 L (8.6-10.3) mg/dL Calcium panel 09/05/18 Range/Units 07:31 Calcium 8.4 L (8.6-10.3) mg/dL Phosphorus 4.9 H (2.7-4.5) mg/dL Pituitary panel 09/05/18 Range/Units 07:31 Sodium 126 L (136-145) mEq/L Potassium 4.0 (3.5-5.1) mEq/L Chloride 91 L (98-107) mEq/L Carbon Dioxide 26 (23-29) mEq/L BUN 29 H (8-23) mg/dL Creatinine 2.94 H (0.70-1.30) mg/dL Glucose 181 H (70-105) mg/dL Calcium 8.4 L (8.6-10.3) mg/dL Adrenal panel 09/05/18 Range/Units 07:31 Sodium 126 L (136-145) mEq/L Potassium 4.0 (3.5-5.1) mEq/L Chloride 91 L (98-107) mEq/L Carbon Dioxide 26 (23-29) mEq/L BUN 29 H (8-23) mg/dL Creatinine 2.94 H (0.70-1.30) mg/dL Glucose 181 H (70-105) mg/dL Calcium 8.4 L (8.6-10.3) mg/dL - Imaging Additional Studies: US R groin: complex abscess; no pseudoaneurysm Consult Discharge Plan - Plan Referrals: NONE,PCP [Primary Care Provider] - (Patient is from [facility])
--- NOTE | 2018-09-05 19:50 | Operative Note ---
Date of procedure: 09/05/18 Pre-op diagnosis: right groin abscess Post-op diagnosis: same Procedure: incision and drainage of right groin abscess excisonal debridement of right groin abscess Implants: none Complications: none Anesthesia: MAC Local Anesthetics: 0.5% Sensorcaine HCL SubQ (cc) Surgeon: Vinh Azul Was there an periodontal assistant present: No Estimated blood loss (cc): 5 Specimen: aerobic and anaerobic culture, abscess cavity wall Condition: stable Disposition: PACU Procedure in Detail: patient was brought into the operating room suite. He was placed in the supine position. Preoperative antibiotics were given. Mechanical DVT prophylaxis was applied. Underwent MAC anesthesia. Prepped and draped in the usual fashion. A timeout was held identify correct patient, pathology, procedure, and physician. I started by taking cultures of the wound, both aerobic and anaerobic. I then created a transverse incision to open the abscess cavity. There was expulsion of infected hematoma. I completely evacuated the entire cavity. It should be noted that there was evidence of necrotizing soft tissue infection within the abscess cavity wall. I excised part of the wall for confirmation. There was healthy tissue beneath. The abscess cavity was about 8cm x 6cm in size. I dissected down to the subcutaneous tissue. I used electrocautery to control for hemostasis. The wound was then packed with wet to dry dressings I then concluded the procedure. The patient tolerated the procedure and was escorted to the PACu in stable condition.
--- NOTE | 2018-09-05 19:51 | Anesthesia Evaluation Post Op ---
Date of Encounter: 09/05/18 Time of Encounter: 19:27 - Discharge PostOp Status: Transfer Patient to floor (Patient's vital signs have been reviewed. Patient is stable postoperatively and has adequately recovered from anesthesia. Patient is determined to have stable airway patency and respiratory function including respiratory rate and oxygen saturation. Patient has a stable heart rate, blood pressure and adequate hydration. Patients mental status is acceptable. Patients temperature is appropriate. Pain and nausea are adequately controlled.)
[2018-09-05] MEDS ORDERED: 0.9 % Sodium Chloride 250 ML IVC ONE (21:59)
[2018-09-05] MEDS ORDERED: Acetaminophen 325 MG TABLET PO PRN (22:00)
[2018-09-05] MEDS ORDERED: D5% in Water 1,000 ML IVC PRN (22:02)
[2018-09-05] MEDS ORDERED: *HR* Dextrose 50 % in Water (Syg) 50 ML SYRINGE IVP PRN (22:02)
[2018-09-05] MEDS ORDERED: Dextrose Gel 15 GM/37.5 ML TUBE PO PRN ×2 (22:02)
[2018-09-05] MEDS ORDERED: Ipratropium/Albuterol Neb 3 ML IH PRN (22:09)
[2018-09-05] MEDS ORDERED: Naloxone 0.4 MG/ML INJ IVP PRN (23:15)
[2018-09-05] MEDS: 0.9 % Sodium Chloride 1,000 ML IVC SCH (23:41)
[2018-09-05] MEDS: Melatonin 3 MG TABLET PO SCH (23:45)
[2018-09-06] MEDS: *HR* Heparin 5,000 UNIT/ML VIAL SQ SCH ×2 (05:25→17:10)
[2018-09-06 05:28] LABS: Hematocrit 26.4 % (37.5-50.1); Mean Corpuscular HGB Conc 30.3 g/dL (31.6-35.5); Mean Corpuscular Hemoglobin 28.3 pg (28.0-33.3); Mean Corpuscular Volume 93.3 fL (83.0-100.0); Platelet Count 247 K/mcL (140-400); Red Blood Count 2.83 M/mcL (4.19-5.50); Red Cell Distribution Width 19.2 % (11.5-14.5)
[2018-09-06 05:46] LABS: Calcium 8.6 mg/dL (8.6-10.3); Potassium 5.2 mEq/L (3.5-5.1)
[2018-09-06] MEDS ORDERED: *HR* Heparin 10,000 UNIT/10 ML VIAL IV PRN (07:54)
[2018-09-06] MEDS ORDERED: 0.9 % Sodium Chloride 250 ML IVC PRN (07:54)
[2018-09-06] MEDS ORDERED: 0.9 % Sodium Chloride 1,000 ML ONE (07:58)
[2018-09-06] MEDS ORDERED: 0.9 % Sodium Chloride 1,000 ML PRIME SCH (08:00)
[2018-09-06] MEDS: Sucralfate 1 GM TABLET PO SCH ×4 (08:00→20:17)
[2018-09-06] MEDS: *HR* Digoxin 0.125 MG TABLET PO SCH (08:01)
[2018-09-06] MEDS: hydrALAZINE 10 MG TABLET PO SCH ×3 (08:01→20:06)
[2018-09-06] MEDS: Aspirin Enteric Coated 81 MG Tablet PO SCH (08:01)
[2018-09-06] MEDS: Gabapentin 100 MG CAPSULE PO SCH ×2 (08:02→20:16)
[2018-09-06] MEDS: Insulin LISPRO 300 UNITS/3 ML VIAL SQ SCH ×4 (08:03→21:02)
[2018-09-06] MEDS ORDERED: Isovue-370 500 ML INFUS..BTL IV ONE (10:31)
--- NOTE | 2018-09-06 10:58 | Pulmonology Consult Note ---
<Candy Meade M - Last Filed: 09/06/18 13:50> Date of Encounter: 09/06/18 Medications and Allergies Ascorbate Calcium [Vitamin C] 500 mg PO DAILY 01/13/18 [History] Corea-3/Dha/Epa/Fish Oil [Fish Oil Corea-3 EC 1,200 mg] 1 cap PO DAILY 01/13/18 [History] Acetaminophen [Tylenol] 325 mg PO Q8HR PRN 05/01/18 [History] Nitroglycerin [Nitrostat] 0.4 mg SL DAILY PRN 05/01/18 [History] Allopurinol [Zyloprim 100 MG] 100 mg PO DAILY 09/03/18 [History] Apixaban [Eliquis] 2.5 mg PO BID 09/03/18 [History] Aspirin [Lo-Dose Aspirin EC] 81 mg PO DAILY 09/03/18 [History] Atorvastatin Calcium [Lipitor] 80 mg PO DAILY 09/03/18 [History] Budesonide/Formoterol 160/4.5 [Symbicort 160/4.5] 2 puff IH BID 09/03/18 [Hist ory] Digoxin [Lanoxin] 0.125 mg PO Q48H 09/03/18 [History] Gabapentin [Neurontin] 100 mg PO BID 09/03/18 [History] GuaiFENesin ER [Mucinex] 600 mg PO BID 09/03/18 [History] Insulin Glargine [Lantus] 5 unit SQ DAILY 09/03/18 [History] Insulin Regular Human [HumuLIN R] 0 unit SQ ACHS 09/03/18 [History] Ipratropium/Albuterol Neb [Duoneb] 3 ml IH Q4HR PRN 09/03/18 [History] Isosorbide DInitrate [Isordil] 10 mg PO TIDAC 09/03/18 [History] Lidocaine Patch [Lidoderm 5% patch] 1 each TP DAILY 09/03/18 [History] Lidocaine Patch [Lidoderm 5% patch] 1 each TP DAILY 09/03/18 [History] Lidocaine Patch [Lidoderm 5% patch] 1 each TP DAILY 09/03/18 [History] Melatonin 3 mg PO HS 09/03/18 [History] Metoprolol [Lopressor] 12.5 mg PO BID 09/03/18 [History] Pantoprazole Sodium [Protonix] 40 mg PO DAILY 09/03/18 [History] Quetiapine Fumarate [Seroquel] 50 mg PO HS 09/03/18 [History] Renal Vitamin [Renal Caps Softgel] 1 mg PO DAILY 09/03/18 [History] Sevelamer Carbonate [Renvela] 2.4 gm PO TID 09/03/18 [History] hydrALAZINE [HydrALAZINE] 10 mg PO Q8HR 09/03/18 [History] Ammonium Lactate [Amlactin] 30 appl TP BID 09/04/18 [History] Hydrocortisone 2.5% CREAM [Cortaid] 1 appl TP BID PRN 09/04/18 [History] Ibuprofen [Motrin Ib] 400 mg PO Q6H PRN 09/04/18 [History] Nicotine Patch [Nicoderm] 7 mg TD DAILY 09/04/18 [History] Sucralfate [Carafate] 1 gm PO Q6H 09/04/18 [History] methylPREDNISolone [Medrol] 4 mg PO DAILY 09/04/18 [History] Allergy/AdvReac Type Severity Reaction Status Date / Time No Known Allergies Allergy Verified 01/13/18 21:28 All Systems: The remainder of the systems were reviewed and are negative Physical Examination Vital Signs: Vital Signs, Last 4 Hours Temp Pulse Resp BP Pulse Ox 09/06/18 13:23 16 151/74 98 09/06/18 13:00 75 16 136/63 96 09/06/18 12:00 75 16 139/67 96 09/06/18 11:59 16 144/69 97 09/06/18 11:05 16 94 09/06/18 11:00 97.4 F L 75 17 98/54 93 09/06/18 10:21 15 107/57 93 Ventilator Settings Ventilator Settings: Ventilator Settings, Last 8 Hours Ventilator Tidal Volume 500 Setting Ventilator Tidal Volume 500 Setting Ventilator Tidal Volume 500 Setting Ventilator Tidal Volume 500 Setting Ventilator Tidal Volume 500 Setting Ventilator Respiratory Rate 16 Setting Ventilator Respiratory Rate 16 Setting Ventilator Respiratory Rate 16 Setting Ventilator Respiratory Rate 16 Setting Ventilator Respiratory Rate 16 Setting Actual Respiratory Rate 16 Actual Respiratory Rate 16 Actual Respiratory Rate 16 Actual Respiratory Rate 17 Actual Respiratory Rate 16 Positive End Expiratory 5 Pressure Positive End Expiratory 5 Pressure Positive End Expiratory 5 Pressure Positive End Expiratory 5 Pressure Positive End Expiratory 5 Pressure Positive End Expiratory 5 Pressure Positive End Expiratory 5 Pressure Peak Inspiratory Airway 35 Pressure Peak Inspiratory Airway 35 Pressure Peak Inspiratory Airway 35 Pressure Peak Inspiratory Airway 35 Pressure Peak Inspiratory Airway 16 Pressure Results - Laboratory Findings CBC and BMP: 09/06/18 10:57 09/06/18 10:57 ABG ABG pH 7.23 pH Units (7.32-7.45) L 09/06/18 12:23 ABG pCO2 67 mmHg (35-45) H 09/06/18 12:23 ABG pO2 72 mmHg (85-104) L 09/06/18 12:23 ABG O2 Saturation 90 % (95-98) L 09/06/18 12:23 PT/INR, D-dimer PT 11.9 Seconds (9.4-12.1) 09/03/18 19:02 Abnormal lab findings: Abnormal lab results RBC 3.02 M/mcL (4.19-5.50) L 09/06/18 10:57 Hgb 8.5 g/dL (12.9-16.9) L 09/06/18 10:57 Hct 28.5 % (37.5-50.1) L 09/06/18 10:57 MCHC 29.8 g/dL (31.6-35.5) L 09/06/18 10:57 RDW 19.1 % (11.5-14.5) H 09/06/18 10:57 Immature Gran % 4.3 % (0-4) H 09/06/18 10:57 Lymphocytes # 0.3 K/mcL (0.6-4.6) L 09/06/18 10:57 Nucleated RBCs/100 WBC 0.2 /100 WBC (0) H 09/06/18 10:57 ABG pH 7.23 pH Units (7.32-7.45) L 09/06/18 12:23 ABG pCO2 67 mmHg (35-45) H 09/06/18 12:23 ABG pO2 72 mmHg (85-104) L 09/06/18 12:23 ABG HCO3 28 mEq/L (21-27) H 09/06/18 12:23 ABG Total CO2 30 mEq/L (20-26) H 09/06/18 12:23 ABG O2 Saturation 90 % (95-98) L 09/06/18 12:23 Sodium 129 mEq/L (136-145) L 09/06/18 10:57 Chloride 93 mEq/L (98-107) L 09/06/18 10:57 BUN 44 mg/dL (8-23) H 09/06/18 10:57 Creatinine 4.25 mg/dL (0.70-1.30) H 09/06/18 10:57 Est GFR ( Amer) 17 (> 60) L 09/06/18 10:57 Est GFR (Non-Af Amer) 14 (> 60) L 09/06/18 10:57 Glucose 152 mg/dL (70-105) H 09/06/18 10:57 POC Glucose 173 mg/dL (70-99) H 09/06/18 07:16 Hemoglobin A1c 8.2 % (-5.6) H 09/04/18 05:52 Calcium 8.1 mg/dL (8.6-10.3) L 09/06/18 10:57 Venous Ioniz Calcium 0.98 mmol/L (1.15-1.35) L 09/06/18 11:09 Phosphorus 9.3 mg/dL (2.7-4.5) H 09/06/18 10:57 Magnesium 3.1 mg/dL (1.6-2.6) H 09/06/18 10:57 AST 70 Units/L (13-39) H 09/06/18 10:57 ALT 68 Units/L (7-52) H 09/06/18 10:57 Troponin I 0.26 ng/mL (< 0.04) H* 09/06/18 10:57 Serum Total Protein 6.1 g/dL (6.4-8.9) L 09/06/18 10:57 Albumin 3.0 g/dL (3.5-5.7) L 09/06/18 10:57 Albumin/Globulin Ratio 1.0 (1.1-2.2) L 09/06/18 10:57 - Clinical Findings Intake & Output: Intake & Output 09/05/18 09/06/18 09/06/18 23:59 07:59 15:59 Intake Total 300 / 300 210 / 210 Output Total 5 / 5 Balance -5 / -5 300 / 300 210 / 210 Consult Discharge Plan - Plan Referrals: NONE,PCP [Primary Care Provider] - (Patient is from [facility]) - Attending Attestation I examined this patient and my medical decision-making was reviewed with the Resident Physician. I agree with the documented findings, disposition and t reatment plan as described except to the extent set forth below. Patient seen and examined. Labs, radiology, chart personally reviewed. 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 Patient has chronic trach and I have supervised respiratory therapist exchange indicated. I do not feel strongly this is a pulmonary embolism, however he is at risk and we will have CT angiogram. I suspect this was either aspiration or mucous plug that leg to his cardiac arrest. Initially I had patient on vent support and then trial of spontaneous breathing trial with evidence of acute on chronic respiratory failure and acidosis for that reason patient was changed to prevent full support and changed his minute ventilation with subsequent ABG has improved. Cardiovascular: stable now, however he had CODE BLUE and again I suspect this was hypoxia related and resuscitation was done with quick recovering. I have discussed with family at the bedside there is a possibility this could happen again and patient does not want any resuscitation, however sister at the bedside stated patient has been full code and he will be full code I gave the oppor tunity for patient and sister to discuss this since ethically be obligated to follow patient's wishes and in addition to that I discussed with palliative care to facilitate discussion between patients and a sister. Patient has multiple medical problems and he is always at risk of something like this could happen to him again. GI: Nutrition per dietary and GI prophylaxis per routine. I do not believe it safe for patient to eat before a swallowing evaluation. At this time he has a PEG tube. Heme: DVT prophylaxis per routine ID: Continue antibiotics and plan to de-escalation. Discussed with the surgeon and he has a wound area and he is on broad-spectrum antibiotics. He may need infectious disease consultation. Renal; discussed with the vehicle and equipment cleaner regarding patient's will get contrast for CT angiogram and he will have dialysis after that. Endorcine: blood glucose is monitored Lines: all lines checked and no evidence of infections Skin: skin care to prevent pressure ulcers per nursing routine care I spent 40 min of Critical Care time with this patient. It involved decision making of high complexity to assess, manipulate, and support vital organ system failure and/or to prevent further life threatening deterioration of the patient's condition. The time involved in the performance of separately reportable procedures was not counted toward critical care time. <Elier Vasquez - Last Filed: 09/06/18 16:37> Date of Encounter: 09/06/18 Time of Encounter: 10:50 Assessment and Plan (1) Cardiac arrest Current Visit: Yes Status: Acute Required 2 rounds of CPR with epi and bicarb Return of pulses after PEA Stable in the ICU, vitals WNL Pt became hypoxic prior to event and turned cyanotic prior to losing pulses Suspect aspiration vs PE Plan: - CTA of the chest - Discussed with nephrology, patient will be dialyzed - evaluate CTA for aspiration/PNA - Post-arrest labs and ECG pending (2) Acute respiratory failure with hypoxia and hypercapnia Current Visit: Yes Status: Acute Hx of trach/PEG unsure of initial indication In ICU, patient is 100% oxygen on 700OxW2 and 5 PEEP CPAP attempted, however patient ABG: pH 7.14/86/64/29/ Respiratory acidosis with compensation Plan: - Monitor ABGs - CTA chest pending (3) Pneumonia Current Visit: Yes Status: Acute Chest CT: LLL PNA and small left pleural effusion with possible infiltrate in the RLL Plan: - Blood cultures sent - Vancomycin and Zosyn started on 09/06 Qualifiers: Pneumonia type: due to unspecified organism Laterality: bilateral Lung location: lower lobe of lung Qualified Code(s): J18.1 - Lobar pneumonia, unspe cified organism (4) COPD (chronic obstructive pulmonary disease) Current Visit: No Status: Chronic Hx Trach/PEG from severe PNA infection requiring prolonged ventilatory support Plan: - PRN Duonebs - Symbicort daily Qualifiers: COPD type: unspecified COPD Qualified Code(s): J44.9 - Chronic obstructive pulmonary disease, unspecified (5) Abscess of right groin Current Visit: Yes Status: Acute Patient underwent I&D of right groin abscess on 09/[address] Azul in the OR Plan: - Further management by Dr. Azul (6) ESRD (end stage renal disease) on dialysis Current Visit: Yes Status: Acute Right IJ dialysis catheter in place Hx of ESRD undergoes dialysis 3x weekly Patient plan for dialysis later today (7) Anemia Current Visit: Yes Status: Acute hgb 8.5 appears chronic in setting of ESRD Qualifiers: Anemia type: due to chronic kidney disease Chronic kidney disease stage: on chronic dialysis Qualified Code(s): N18.6 - End stage renal disease; D63.1 - Anemia in chronic kidney disease; Z99.2 - Dependence on renal dialysis History of Present Illness Consult date: 09/06/18 Requesting physician: Vinh Azul Reason for consult: hypoxemia Chief complaint: Arrest History of present illness: Patient is a 68M with PMHx CAD, CABG, CDK requiring dialysis, and COPD with trach/PEG admitted from floor to ICU after being coded for cardiac arrest. Patient was in the hospital for evaluation by general surgery to undergo I&D of an abscess over his left groin that occurred near the insertion site from a prior heart cath performed in April 2018. According to floor staff, patient became hypoxic and lost pulses. He was coded for one round and received a dose of ACLS epi. He then had return of pulse. Patient was PEA, however after code patient showed a. fib. In ICU patient is stable at this time and following my commands. According to nursing report, patient stays at [facility] in which he is undergoing rehab for his trach. Patient normally tolerates PO at this time and trach is typically capped off. Patient was eating prior to the code. Past Med Surg Social Fam HX - Past Medical History Medical history: COPD, coronary artery disease, diabetes, GI bleed, hyperlipidemia, hypertension Additional medical history: CKD, Gout, psychosis, Resp. Failure, Vit. B deficient. Psychiatric history: anxiety - Past Surgical History Surgical History: coronary bypass (CABG), tracheostomy - Social History Smoking Status: Former smoker Smokeless Tobacco Status: Yes (patch) Alcohol use: none Drug use: none - Family History Mother Living Status: Hx Family Cardiac Disorders: Yes Hx Family Respiratory Disorders: No Hx Family Cancer: Yes Hx Family GI Disorders: Yes Hx Family Endocrine Disorder: Yes Hx Family Neuromuscular Disorders: No Hx Family Neurologic Disorders: No Hx Family HEENT Disorders: No Hx Family Autoimmune Disorders: No Father Adopted: No Family Member Ethnicity: Non- Living Status: Hx Family Cardiac Disorders: Yes Hx Family Respiratory Disorders: No Hx Family Cancer: No Hx Family GI Disorders: No Hx Family Endocrine Disorder: No Hx Family Neuromuscular Disorders: No Hx Family Neurologic Disorders: No Hx Family HEENT Disorders: No Hx Family Autoimmune Disorders: No ROS unobtainable: due to endotracheal tube, due to mental status All Systems: The remainder of the systems were reviewed and are negative Physical Examination Vital Signs: Vital Signs, Last 4 Hours Temp Pulse Resp BP Pulse Ox 09/06/18 08:21 98 09/06/18 07:11 98.0 F 71 20 128/56 98 General appearance: other (somnolent) Eyes: nonicteric ENT: oropharynx moist Neck: supple Effort: mildly labored Auscultation: left: diminished breath sounds, right: rhonchi Cardiovascular: regular rate and rhythm Gastrointestinal: normoactive bowel sounds Integumentary: normal Extremities: no cyanosis, no edema, other (bandage over right groin from I&D on 09/05) Musculoskeletal: no deformities non-focal exam, pupils equal and round anxious Results - Laboratory Findings CBC and BMP: 09/06/18 10:57 09/06/18 10:57 PT/INR, D-dimer PT 11.9 Seconds (9.4-12.1) 09/03/18 19:02 Abnormal lab findings: Abnormal lab results RBC 2.83 M/mcL (4.19-5.50) L 09/06/18 04:39 Hgb 8.0 g/dL (12.9-16.9) L 09/06/18 04:39 Hct 26.4 % (37.5-50.1) L 09/06/18 04:39 MCHC 30.3 g/dL (31.6-35.5) L 09/06/18 04:39 RDW 19.2 % (11.5-14.5) H 09/06/18 04:39 Monocytes # 1.5 K/mcL (0.0-1.3) H 09/05/18 07:31 Nucleated RBCs/100 WBC 0.2 /100 WBC (0) H 09/04/18 05:52 Sodium 127 mEq/L (136-145) L 09/06/18 04:39 Potassium 5.2 mEq/L (3.5-5.1) H D 09/06/18 04:39 Chloride 92 mEq/L (98-107) L 09/06/18 04:39 BUN 40 mg/dL (8-23) H 09/06/18 04:39 Creatinine 3.90 mg/dL (0.70-1.30) H 09/06/18 04:39 Est GFR ( Amer) 19 (> 60) L 09/06/18 04:39 Est GFR (Non-Af Amer) 15 (> 60) L 09/06/18 04:39 Glucose 193 mg/dL (70-105) H 09/06/18 04:39 POC Glucose 173 mg/dL (70-99) H 09/06/18 07:16 Hemoglobin A1c 8.2 % (-5.6) H 09/04/18 05:52 Calculated Osmolality 279 (280-300) L 09/06/18 04:39 Phosphorus 4.9 mg/dL (2.7-4.5) H 09/05/18 07:31 - Clinical Findings Intake & Output: Intake & Output 09/05/18 09/06/18 09/06/18 23:59 07:59 15:59 Intake Total 300 / 300 210 / 210 Output Total 5 / 5 Balance -5 / -5 300 / 300 210 / 210
[2018-09-06] MEDS: Budesonide/Formoterol 160/4.5 1 PUFF INH IH SCH ×2 (11:05→21:39)
[2018-09-06 11:07] LABS: Basophils % 0.2 %; Hematocrit 28.5 % (37.5-50.1); Hemoglobin 8.5 g/dL (12.9-16.9); Immature Granulocytes % 4.3 % (0-4); Immature Platelets 2.8 % (1.1-6.1); Lymphocytes # 0.3 K/mcL (0.6-4.6); Lymphocytes % 3.3 %; Mean Corpuscular HGB Conc 29.8 g/dL (31.6-35.5); Mean Corpuscular Hemoglobin 28.1 pg (28.0-33.3); Mean Corpuscular Volume 94.4 fL (83.0-100.0); Mean Platelet Volume 9.9 fL (9.4-12.4); Monocytes # 1.3 K/mcL (0.0-1.3); Monocytes % 12.2 %; Neutrophils # 8.4 K/mcL (1.6-8.9); Nucleated Red Blood Cells 0.2 /100 WBC (0); Platelet Count 248 K/mcL (140-400); Red Blood Count 3.02 M/mcL (4.19-5.50); Red Cell Distribution Width 19.1 % (11.5-14.5)
[2018-09-06] MEDS ORDERED: Perflutren Lipid Microsphere 1.3 ML in 0.9 % Sodium Chloride 8.7 ML IVP ONE (11:07)
[2018-09-06 11:12] LABS: ABG Base Excess -1 mEq/L (-2 to 3); ABG HCO3 29 mEq/L (21-27); ABG Oxygen Saturation 83 % (95-98); ABG PCO2 86 mmHg (35-45); ABG PH 7.14 pH Units (7.32-7.45); ABG PO2 64 mmHg (85-104); ABG TCO2 32 mEq/L (20-26); Blood Gas Modality CPAP/PS; Blood Gas PEEP 5 cm H2O; Blood Gas Pressure Support 10 cm H2O
[2018-09-06 11:25] LABS: Bilirubin,Total 0.4 mg/dL (0.3-1.0); Calcium 8.1 mg/dL (8.6-10.3); Globulin 3.1 g/dL (2.4-3.5); Magnesium 3.1 mg/dL (1.6-2.6); Phosphorous 9.3 mg/dL (2.7-4.5); Potassium 5.1 mEq/L (3.5-5.1); Total Protein 6.1 g/dL (6.4-8.9)
[2018-09-06 11:26] LABS: VBG Ionized Calcium 0.98 mmol/L (1.15-1.35)
[2018-09-06 11:45] LABS: Troponin I 0.26 ng/mL (< 0.04)
--- NOTE | 2018-09-06 11:56 | Event Note ---
Date of Encounter: 09/06/18 Time of Encounter: 10:03 CODE BLUE note: Time called 1003 A CODE BLUE called at 10:03 AM, upon arriving to the patient's room CPR was initiated by nursing staff, patient had no pulse, was hypoxic and nonresponsive. CPR was continued, all rolls were identified, patient had a tracheostomy and airway was established within the first 30 seconds of CODE BLUE initiation. The patient received one epinephrine IV. The patient was placed on the defibrillator, vital rhythm was not obtainable on defibrillator at initial evaluation. At the three-minute bassam the patient had a pulse which was irregularly irregular, oxygen saturation's were 89% with Ambu bag. The patient received 2 g of magnesium, 2 amps of bicarbonate IV. Rhythm was obtained on code carts monitor demonstrating normal sinus rhythm. Patient was continued on IV fluids and transferred to the ICU. The patient had received a total of 3 minutes of effective CPR prior to ROSC being obtained. Review of the patient's monitoring and evaluation advisor after code demonstrated that the patient went into PDA. Discussing with nursing staff was at bedside when patient became unresponsive and pulse diminished, patient lost consciousness and then vomiting prior to initiation of CPR. Patient received: 3 minutes CPR - 1 epinephrine - 2 g magnesium - 2 Amps bicarbonate - 1 Liter bolus NS ROSC obtained within 3 minutes of CODE BLUE call transferred to the ICU
[2018-09-06 12:30] LABS: ABG Base Excess 0 mEq/L (-2 to 3); ABG HCO3 28 mEq/L (21-27); ABG Oxygen Saturation 90 % (95-98); ABG PCO2 67 mmHg (35-45); ABG PH 7.23 pH Units (7.32-7.45); ABG PO2 72 mmHg (85-104); ABG TCO2 30 mEq/L (20-26); Blood Gas Modality VC; Blood Gas PEEP 5 cm H2O; Blood Gas Respiration Rate 16; Blood Gas VT 500 cc
[2018-09-06] MEDS ORDERED: Naloxone 0.4 MG/ML INJ IVP PRN (14:04)
[2018-09-06] MEDS: OXYCODONE Oral CONC 10 MG/0.5 ML ORAL.SYG SL PRN ×2 (14:49→20:17)
--- NOTE | 2018-09-06 14:50 | Palliative - Consult Note ---
Date of Encounter: 09/06/18 Time of Encounter: 13:30 - Assessment and Plan (1) Abscess of right groin Current Visit: Yes Status: Acute Assessment and plan: Surgery patient. Patient had I&D of abscess to right groin by Dr. Azul on 09/05/18. Dressing intact. (2) Acute respiratory failure with hypoxia and hypercapnia Current Visit: Yes Status: Acute Assessment and plan: Patient has chronic tracheostomy. Per family report, have been trying to get off tracheostomy. Educated patient and family may require long term care social worker trach to allow for expulsion of mucus plugs in the future. (3) Cardiac arrest Current Visit: Yes Status: Acute Assessment and plan: Patient had cardiac arrest this morning at approximately 1010 am. CPR provided, resuscitation effective. (4) ESRD (end stage renal disease) on dialysis Current Visit: Yes Status: Acute Assessment and plan: Nephrology consulted; management of dialysis per home schedule of MWF currently in place. (5) Goals of care, counseling/discussion Current Visit: Yes Status: Acute Assessment and plan: Conducted goals of care meeting with patient and two sisters (Tracy Craig and Sabrina Swenson). Patient expressed he does not want CPR again, caused pain. Patient's sisters expressed patient only desires no CPR as he is in pain, just had CPR, and is scared. Reviewed with patient, patient expressed that his sister was incorrect. Patient expressed he has already been through so much and desires not to have again; verbalized understanding. Confirmed patient wants all aggressive care until heart stops, agreed. Patient's CODE STATUS changed to DNRCCA. State form completed. Evaluated if desire continued dialysis, agreeable. Patient's sisters became upset and reported Palliative care team is vultures, taking advantage of his pain to "get what you want," explained only trying to follow patient's desires whom he already expressed to both primary RN and ICU team. Evaluated for MPOA, has but no copy on chart, family upset as they informed already brought in and was lost; requested new copy, heather Muir placed and stored on ICU. Patient's sisters wanted to keep returning conversation to patient changing code status while in [facility] to Full Code; explained that patient has right to change CODE STATUS as often as he wishes. Reiterated that medical status overall has changed since April. Patient's sisters desires to cast all blame for patient's medical deterioration at [facility]. CODE STATUS established as DNRCCA. Palliative care will follow from a distance to monitor progression of hospital stay. Ensured patient's sister would follow up at a later time in hospital stay, once pain treated, to ensure patient's CODE STATUS wishes remain intact. Explained any provider can change CODE STATUS to reflect patient's wishes at any point during hospitalization or outpatient. Verbalized understanding. Family Contact information: Tracy Craig (C) [phone] (H) [phone] Sabrina Swenson (C) [phone] (H) [phone] Patient's primary [facility] is out of town in [place] at this time and should initiate contact with Tracy instead. (6) Chest pain in adult Current Visit: Yes Status: Acute Assessment and plan: Discussed case with ICU team. Made recommendation for low dose Oxycodone for management of acute pain, r/t CPR. Palliative-CN HPI - Data of Consult Patient: new to practice Consult date: 09/06/18 Requesting Physician: Vinh Azlu MD Primary Care Provider: PCP NONE - Consult Narrative Palliative Care/Comfort Measures: Palliative care Reason for consult: CODE STATUS/Goals of care History of present illness: Mr. Sanon is a 68 year old male transferred to [facility] post out-patient wound care clinic visit with Dr. Azul on 09/03/18; patient had heart catheterization 04/2018 and presented with R groin abscess s/p catheterization. Patient initially developed a hematoma that became infected forming noted abscess. PMH: CAD, S/P CABG, CKD (Dialysis), COPD, DM, GI Bleed, Hyperlipidemia, and HTN, and poor pulmonary function requiring oxygen support at [facility], where patient has resided for rehabilitation. Due to CKD on dialysis, nephrology consulted to manage dialysis while inpatient. Prior to admission, patient had tracheostomy and PEG in place. Ultrasound confirmed abscess versus hematoma presence to right groin. Cardiology consulted for surgical clearance; report high risk for necessary procedure. On 09/05/18, Incision and drainage with excisional debridement of right groin abscess, tolerated well. 09/06/18: Patient found in cardiac arrest, CPR performed times two rounds, CPR successful and transferred patient to ICU; Worrisome for aspiration versus PE. Palliative care consulted for goals of care and CODE STATUS discussion; patient expressing wishes and family attempting to override patients stated goals. Patient sitting up in bed upon arrival for assessment. Patients two sisters Tracy and Sabrina present at bedside. Patient alert, oriented, and able to participate in Goals of care discussion. Reports pain to ribs, due to CPR. Patient denies anxiety, shortness of breath, nausea, and vomiting. Patient connected to ventilator via Tracheostomy. CC: Vinh Azul MD - Time Spent with Patient Time: Total time spent is greater than 50% in coordination of care (as documented) at patient's floor/unit and/or counseling patient: Time with patient: 45 minutes Past Med Surg Social Fam HX - Past Medical History Medical history: COPD, coronary artery disease, diabetes, GI bleed, hyperlipidemia, hypertension Additional medical history: CKD, Gout, psychosis, Resp. Failure, Vit. B deficient. Psychiatric history: anxiety - Past Surgical History Surgical History: coronary bypass (CABG), tracheostomy - Social History Smoking Status: Former smoker Smokeless Tobacco Status: Yes (patch) Alcohol use: none Drug use: none - Family History Mother Living Status: Hx Family Cardiac Disorders: Yes Hx Family Respiratory Disorders: No Hx Family Cancer: Yes Hx Family GI Disorders: Yes Hx Family Endocrine Disorder: Yes Hx Family Neuromuscular Disorders: No Hx Family Neurologic Disorders: No Hx Family HEENT Disorders: No Hx Family Autoimmune Disorders: No Father Adopted: No Family Member Ethnicity: Non- Living Status: Hx Family Cardiac Disorders: Yes Hx Family Respiratory Disorders: No Hx Family Cancer: No Hx Family GI Disorders: No Hx Family Endocrine Disorder: No Hx Family Neuromuscular Disorders: No Hx Family Neurologic Disorders: No Hx Family HEENT Disorders: No Hx Family Autoimmune Disorders: No Medications and Allergies Ascorbate Calcium [Vitamin C] 500 mg PO DAILY 01/13/18 [History] [place]ne-3/Dha/Epa/Fish Oil [Fish Oil [place]ne-3 EC 1,200 mg] 1 cap PO DAILY 01/13/18 [History] Acetaminophen [Tylenol] 325 mg PO Q8HR PRN 05/01/18 [History] Nitroglycerin [Nitrostat] 0.4 mg SL DAILY PRN 05/01/18 [History] Allopurinol [Zyloprim 100 MG] 100 mg PO DAILY 09/03/18 [History] Apixaban [Eliquis] 2.5 mg PO BID 09/03/18 [History] Aspirin [Lo-Dose Aspirin EC] 81 mg PO DAILY 09/03/18 [History] Atorvastatin Calcium [Lipitor] 80 mg PO DAILY 09/03/18 [History] Budesonide/Formoterol 160/4.5 [Symbicort 160/4.5] 2 puff IH BID 09/03/18 [History] Digoxin [Lanoxin] 0.125 mg PO Q48H 09/03/18 [History] Gabapentin [Neurontin] 100 mg PO BID 09/03/18 [History] GuaiFENesin ER [Mucinex] 600 mg PO BID 09/03/18 [History] Insulin Glargine [Lantus] 5 unit SQ DAILY 09/03/18 [History] Insulin Regular Human [HumuLIN R] 0 unit SQ ACHS 09/03/18 [History] Ipratropium/Albuterol Neb [Duoneb] 3 ml IH Q4HR PRN 09/03/18 [History] Isosorbide DInitrate [Isordil] 10 mg PO TIDAC 09/03/18 [History] Lidocaine Patch [Lidoderm 5% patch] 1 each TP DAILY 09/03/18 [History] Lidocaine Patch [Lidoderm 5% patch] 1 each TP DAILY 09/03/18 [History] Lidocaine Patch [Lidoderm 5% patch] 1 each TP DAILY 09/03/18 [History] Melatonin 3 mg PO HS 09/03/18 [History] Metoprolol [Lopressor] 12.5 mg PO BID 09/03/18 [History] Pantoprazole Sodium [Protonix] 40 mg PO DAILY 09/03/18 [History] Quetiapine Fumarate [Seroquel] 50 mg PO HS 09/03/18 [History] Renal Vitamin [Renal Caps Softgel] 1 mg PO DAILY 09/03/18 [History] Sevelamer Carbonate [Renvela] 2.4 gm PO TID 09/03/18 [History] hydrALAZINE [HydrALAZINE] 10 mg PO Q8HR 09/03/18 [History] Ammonium Lactate [Amlactin] 30 appl TP BID 09/04/18 [History] Hydrocortisone 2.5% CREAM [Cortaid] 1 appl TP BID PRN 09/04/18 [History] Ibuprofen [Motrin Ib] 400 mg PO Q6H PRN 09/04/18 [History] Nicotine Patch [Nicoderm] 7 mg TD DAILY 09/04/18 [History] Sucralfate [Carafate] 1 gm PO Q6H 09/04/18 [History] methylPREDNISolone [Medrol] 4 mg PO DAILY 09/04/18 [History] Allergy/AdvReac Type Severity Reaction Status Date / Time No Known Allergies Allergy Verified 01/13/18 21:28 - Cardiovascular Cardiovascular ROS: chest pain, irregular heart rhythm, slow heart rate - Respiratory Respiratory: pain on inspiration - Gastrointestinal Gastrointestinal: no nausea, no vomiting - Integumentary ROS Integumentary: dry skin - Neurological Neurological ROS: weakness - Psychiatric Psychiatric general PM: no anxiety Palliative Care-Exam - Constitutional Vitals: Temp Pulse Resp BP Pulse Ox 97.4 F L 72 16 143/69 98 09/06/18 11:00 09/06/18 14:00 09/06/18 14:00 09/06/18 14:00 09/06/18 14:00 General appearance: Present: cooperative, morbidly obese, no acute distress - Head Head Exam: Present: atraumatic, normal inspection - Eye Eye exam: Present: EOMI, normal appearance, conjuntiva pink - ENT ENT exam: Present: mucous membranes dry, normal external ear exam - Expanded ENT Exam Mouth Exam: Present: dry mucosa - Neck Neck exam: Present: full ROM, normal inspection - Respiratory Respiratory exam: Present: accessory muscle use, rhonchi, wheezes. Absent: CTAB, respiratory distress - Cardiovascular Cardiovascular exam: Present: +S1, +S2 - Expanded Cardiovascular Exam Peripheral pulses: 2+: Radial (L), Radial (R), Posterior Tibialis (L), Posterior Tibialis (R), Dorsalis Pedis (L) PM, Dorsalis Pedis (R) PM - GI/Abdominal Exam GI/Abdominal exam: Present: normal bowel sounds, soft. Absent: tenderness - Rectal Rectal Exam: Present: deferred - Back Exam Back exam: Present: full ROM, normal inspection - Neurological Exam Neurological exam: Present: alert, oriented X3, strengths equal and symetr throughout. Absent: altered - Expanded Neurological Exam Patient oriented to: Present: person, place, time Coma Scale Eye Opening: To Voice Coma Scale Motor Response: Obeys Commands Coma Scale Verbal Response: Oriented Coma Scale Total: 14 - Psychiatric Psychiatric exam: Present: normal affect, normal mood Internal Medicine - CN: Reslt - Labs CBC & Chem 7: 09/06/18 10:57 09/06/18 10:57 Labs: Short CBC 09/06/18 09/06/18 Range/Units 04:39 10:57 WBC 10.4 10.4 (4.3-11.1) K/mcL Hgb 8.0 L 8.5 L (12.9-16.9) g/dL Hct 26.4 L 28.5 L (37.5-50.1) % Plt Count 247 248 (140-400) K/mcL Neutrophils # 8.4 (1.6-8.9) K/mcL BMP 09/06/18 09/06/18 04:39 10:57 Sodium 127 L 129 L Potassium 5.2 H D 5.1 Chloride 92 L 93 L Carbon Dioxide 23 25 BUN 40 H 44 H Creatinine 3.90 H 4.25 H Glucose 193 H 152 H Calcium 8.6 8.1 L Cardiac Enzymes 09/06/18 Range/Units 10:57 Troponin I 0.26 H* (< 0.04) ng/mL Liver Function 09/06/18 Range/Units 10:57 Total Bilirubin 0.4 (0.3-1.0) mg/dL AST 70 H (13-39) Units/L ALT 68 H (7-52) Units/L Alkaline Phosphatase 90 (34-104) Units/L Albumin 3.0 L (3.5-5.7) g/dL - ABG Interpretation ABG results: ABG ABG pH 7.23 pH Units (7.32-7.45) L 09/06/18 12:23 ABG pCO2 67 mmHg (35-45) H 09/06/18 12:23 ABG pO2 72 mmHg (85-104) L 09/06/18 12:23 ABG O2 Saturation 90 % (95-98) L 09/06/18 12:23 PT/INR, D-dimer PT 11.9 Seconds (9.4-12.1) 09/03/18 19:02 - Impressions Impressions Echocardiogram 09/06/18 10:16 Impressions: LVEF 55%. Normal LV chamber size, wall thickness and function. Atypical septal motion consistent with post-operative status. Moderate left ventricular diastolic dysfunction. Right ventricle was not well visualized. No obvious significant valvular dysfunction. Unable to estimate RVSP due to lack of TR jet. Left Ventricular Wall Motion: Rest Echo Findings All wall segments showed normal motion. Findings: Study Quality * Technically sub-optimal due to poor echocardiographic windows. ECG Findings * Sinus rhythm with BBB. Left Ventricle * LVEF 55%. * Normal LV chamber size, wall thickness and function. * Atypical septal motion consistent with post-operative status. * Moderate left ventricular diastolic dysfunction. Right Ventricle * Right ventricle was not well visualized. Left Atrium * Mildly dilated left atrium. Right Atrium * Right atrium is not well visualized. Aortic Valve * Aortic valve not well visualized. * No aortic regurgitation. * No aortic stenosis. Mitral Valve * Mild mitral annular calcification * No mitral regurgitation. * No mitral stenosis. Tricuspid Valve * Tricuspid valve not well visualized. * No tricuspid regurgitation. * Unable to estimate RVSP due to lack of TR jet. Pulmonic Valve * Pulmonic valve not well visualized. Aorta * Normally sized aortic root. Pericardium * The pericardium appears normal. IVC * The IVC is not dilated. Pulmonary Artery * Pulmonary artery not well visualized. Consult Discharge Plan - Plan Referrals: NONE,PCP [Primary Care Provider] - (Patient is from [facility]) Palliative Quality Palliative Quality: Screen for Code Status: Yes, Screen for Goals of Care: Yes, Screen for Pain: Yes, If Pain Regimen Started, Initiate Bowel Regimen: NA, Screen for Nausea/Vomitting: Yes Code Status: 09/03/18 20:54 Resuscitation Status: Active [RES] Routine Comment: Resuscitation Status: Full Code Palliative Scale - Palliative Performance Scale How ambulatory is this patient?: Mainly in bed What is patient's level of activity and evidence of disease?: Unable to do any work, Extensive disease How much self-care assistance does patient require?: Total care How much oral intake does the patient have?: Normal or reduced What is this patient's level of consciousness?: Full or confusion Palliative Performance Score: 30 %
[2018-09-06] MEDS ORDERED: Vancomycin 1 EACH in 0.9 % Sodium Chloride 250 ML IVPB PRN (16:00)
--- NOTE | 2018-09-06 16:22 | Nephrology Progress Note ---
Date of Encounter: 09/06/18 Time of Encounter: 12:00 - Assessment and Plan (1) Acute respiratory failure with hypoxia and hypercapnia Current Visit: Yes Status: Acute Per pulm on vent Pulm toilet needed (2) ESRD (end stage renal disease) on dialysis Current Visit: Yes Status: Acute will perform HD today once hemodynamically stable UF as tolerated goal 2-3kg (3) Cardiac arrest Current Visit: Yes Status: Acute s/p 2 rounds of CPR, successful (4) Abscess of right groin Current Visit: Yes Status: Acute Per surgery s/p I&D with dressing in place (5) Dyspnea Current Visit: Yes Status: Acute Qualifiers: Dyspnea type: unspecified Qualified Code(s): R06.00 - Dyspnea, unspecified (6) Anemia Current Visit: Yes Status: Acute Hgb remains stable at 8.5, will monitor Qualifiers: Anemia type: due to chronic kidney disease Chronic kidney disease stage: on chronic dialysis Qualified Code(s): N18.6 - End stage renal disease; D63.1 - Anemia in chronic kidney disease; Z99.2 - Dependence on renal dialysis Subjective Interval history: Pt seen and examined s/p cardiopulmonary arrest requiring successful CPR. s/p I7D R groin abscess yesterday. Objective - Vital Signs Vital signs: Vital Signs Temp Pulse Resp BP Pulse Ox 09/06/18 16:00 65 16 91/52 97 09/06/18 15:31 16 109/51 91 09/06/18 15:00 97.7 F 74 16 120/53 98 09/06/18 14:00 72 16 143/69 98 09/06/18 13:23 16 151/74 98 09/06/18 13:00 75 16 136/63 96 09/06/18 12:00 75 16 139/67 96 09/06/18 11:59 16 144/69 97 09/06/18 11:05 16 94 09/06/18 11:00 97.4 F L 75 17 98/54 93 09/06/18 10:21 15 107/57 93 09/06/18 08:21 98 09/06/18 07:11 98.0 F 71 20 128/56 98 09/06/18 04:31 97.6 F 74 18 132/67 99 09/06/18 01:37 97.4 F L 72 18 137/66 100 11/30/18 01:30 97.8 F 82 18 126/70 100 09/06/18 00:30 98.0 F 80 16 130/70 100 09/05/18 23:30 98.2 F 74 16 134/68 99 09/05/18 22:30 97.8 F 78 16 133/60 99 09/05/18 22:00 97.8 F 71 16 133/62 100 09/05/18 21:30 97.8 F 75 16 138/68 100 09/05/18 21:00 97.6 F 83 16 136/65 99 09/05/18 20:45 97.8 F 71 16 136/72 98 09/05/18 20:35 19 99 09/05/18 20:30 97.4 F L 83 16 134/57 100 09/05/18 20:15 97.4 F L 77 18 126/70 100 09/05/18 19:56 97.6 F 84 18 130/64 96 09/05/18 19:45 98.7 F 79 16 126/66 98 09/05/18 19:24 98.8 F 77 14 120/58 100 09/05/18 19:14 70 14 117/51 98 09/05/18 19:04 73 14 113/57 99 09/05/18 18:54 98.9 F 77 16 115/60 98 09/05/18 17:50 92 22 150/98 95 Intake and Output 09/06/18 09/06/18 09/06/18 07:59 15:59 23:59 Intake Total 300 / 300 210 / 210 Balance 300 / 300 210 / 210 Intake: Oral 60 / 60 Free Water Intake Amount 300 / 300 150 / 150 Other: Blood Glucose* 173 164 134 - General Appearance General appearance: Present: sedated on ventilator, intubated EENT: Present: ATNC, mucous membranes moist Neck: Present: no JVD, supple Respiratory: Present: course breath sounds Cardiology: Present: no edema, normal S1, normal S2 Dialysis Vascular Access: Venous Catheter Gastrointestinal: Present: no tenderness, no guarding Integumentary: Present: warm and dry Additional Comments: resting comfortably Musculoskeletal: Present: no deformities Psychiatric: Present: cooperative - Lab 09/06/18 10:57 09/06/18 10:57 Most recent lab results ABG pH 7.23 pH Units (7.32-7.45) L 09/06/18 12:23 ABG pCO2 67 mmHg (35-45) H 09/06/18 12:23 ABG pO2 72 mmHg (85-104) L 09/06/18 12:23 ABG HCO3 28 mEq/L (21-27) H 09/06/18 12:23 ABG O2 Saturation 90 % (95-98) L 09/06/18 12:23 Calcium 8.1 mg/dL (8.6-10.3) L 09/06/18 10:57 Phosphorus 9.3 mg/dL (2.7-4.5) H 09/06/18 10:57 Magnesium 3.1 mg/dL (1.6-2.6) H 09/06/18 10:57 Consult Discharge Plan - Plan Referrals: NONE,PCP [Primary Care Provider] - (Patient is from [facility])
[2018-09-06] MEDS: Piperacillin/Tazobactam 3.375 GM in 0.9 % Sodium Chloride Mini Bag 100 ML IVPB SCH (17:10)
--- NOTE | 2018-09-06 19:59 | General Surgery Progress Note ---
Date of Encounter: 09/06/18 Time of Encounter: 19:57 - Assessment and Plan (1) Abscess of right groin Current Visit: Yes Status: Acute 68M with multiple comorbidities with chronic R groin wound/abscess; POD #1 s/p excisional debridement; mucous plugging, cardiac arrest, CPR, ROSC; diet as tolerated in AM restart home meds pulm toilet TF at night per home regimen wet to dry dressing to wound with 0.25% dakin's solution will plan for return to nursing facility on 09/09 appreciate recs from consults Subjective Patient reports: other (patient had a code blue event, likely due to mucous plugging; had CPR for several minutes before ROSC; transferred to ICU) Objective Vital Signs - Last 8 Hours Temp Pulse Resp BP Pulse Ox 09/06/18 19:13 97.9 F 18 120/54 09/06/18 19:05 111/63 09/06/18 18:50 106/57 09/06/18 18:35 100/53 09/06/18 18:20 105/55 09/06/18 18:05 113/56 09/06/18 18:00 74 16 106/58 99 09/06/18 17:50 103/54 09/06/18 17:35 111/66 09/06/18 17:20 120/56 09/06/18 17:07 16 92/53 99 09/06/18 17:05 92/54 09/06/18 17:00 62 16 92/54 99 09/06/18 16:50 96/54 09/06/18 16:45 110/57 09/06/18 16:35 108/58 09/06/18 16:20 92/50 09/06/18 16:10 91/52 09/06/18 16:05 91/52 09/06/18 16:00 65 16 91/52 97 09/06/18 15:50 92/52 09/06/18 15:45 88/48 09/06/18 15:35 97.7 F 16 109/51 09/06/18 15:31 16 109/51 91 09/06/18 15:00 97.7 F 74 16 120/53 98 09/06/18 14:00 72 16 143/69 98 09/06/18 13:23 16 151/74 98 09/06/18 13:00 75 16 136/63 96 09/06/18 12:00 75 16 139/67 96 09/06/18 11:59 16 144/69 97 Intake and Output 09/06/18 09/06/18 09/06/18 07:59 15:59 23:59 Intake Total 300 / 300 810 / 810 Output Total 3100 / 3100 Balance 300 / 300 810 / 810 -3100 / -3100 Intake: Oral 60 / 60 Intake, Rinseback and Flushes 600 / 600 Free Water Intake Amount 300 / 300 150 / 150 Output: Urine 0 / 0 Total Dialysis (HD) Output 3100 / 3100 Other: Blood Glucose* 173 164 134 Hemodialysis Net Fluid Removed 315 2500 (mL) - General physical appearance no distress - Respiratory normal expansion, normal respiratory effort - Cardiovascular Cardiovascular exam: Present: RRR - Abdomen Abdomen: Present: soft, non tender - Incision Incision: Present: open - Integumentary no rash - Neurologic CN 2-12 grossly intact - Psychiatric oriented to time, oriented to person, oriented to place - Labs 09/06/18 10:57 09/06/18 10:57 Diabetes panel 09/06/18 09/06/18 Range/Units 04:39 10:57 Sodium 127 L 129 L (136-145) mEq/L Potassium 5.2 H D 5.1 (3.5-5.1) mEq/L Chloride 92 L 93 L (98-107) mEq/L Carbon Dioxide 23 25 (23-29) mEq/L BUN 40 H 44 H (8-23) mg/dL Creatinine 3.90 H 4.25 H (0.70-1.30) mg/dL Glucose 193 H 152 H (70-105) mg/dL Calcium 8.6 8.1 L (8.6-10.3) mg/dL AST 70 H (13-39) Units/L ALT 68 H (7-52) Units/L Alkaline Phosphatase 90 (34-104) Units/L Albumin 3.0 L (3.5-5.7) g/dL Calcium panel 09/06/18 09/06/18 Range/Units 04:39 10:57 Calcium 8.6 8.1 L (8.6-10.3) mg/dL Phosphorus 9.3 H (2.7-4.5) mg/dL Albumin 3.0 L (3.5-5.7) g/dL Pituitary panel 09/06/18 09/06/18 Range/Units 04:39 10:57 Sodium 127 L 129 L (136-145) mEq/L Potassium 5.2 H D 5.1 (3.5-5.1) mEq/L Chloride 92 L 93 L (98-107) mEq/L Carbon Dioxide 23 25 (23-29) mEq/L BUN 40 H 44 H (8-23) mg/dL Creatinine 3.90 H 4.25 H (0.70-1.30) mg/dL Glucose 193 H 152 H (70-105) mg/dL Calcium 8.6 8.1 L (8.6-10.3) mg/dL Adrenal panel 09/06/18 09/06/18 Range/Units 04:39 10:57 Sodium 127 L 129 L (136-145) mEq/L Potassium 5.2 H D 5.1 (3.5-5.1) mEq/L Chloride 92 L 93 L (98-107) mEq/L Carbon Dioxide 23 25 (23-29) mEq/L BUN 40 H 44 H (8-23) mg/dL Creatinine 3.90 H 4.25 H (0.70-1.30) mg/dL Glucose 193 H 152 H (70-105) mg/dL Calcium 8.6 8.1 L (8.6-10.3) mg/dL Total Bilirubin 0.4 (0.3-1.0) mg/dL AST 70 H (13-39) Units/L ALT 68 H (7-52) Units/L Alkaline Phosphatase 90 (34-104) Units/L Albumin 3.0 L (3.5-5.7) g/dL Consult Discharge Plan - Plan Referrals: NONE,PCP [Primary Care Provider] - (Patient is from [facility])
[2018-09-06] MEDS: Melatonin 3 MG TABLET PO SCH (20:17)
[2018-09-06] MEDS: 0.9 % Sodium Chloride 1,000 ML IVC SCH (23:58)
[2018-09-07] MEDS: OXYCODONE Oral CONC 10 MG/0.5 ML ORAL.SYG SL PRN ×3 (02:47→17:34)
[2018-09-07] MEDS: Piperacillin/Tazobactam 3.375 GM in 0.9 % Sodium Chloride Mini Bag 100 ML IVPB SCH ×2 (05:00→16:40)
[2018-09-07] MEDS: *HR* Heparin 5,000 UNIT/ML VIAL SQ SCH ×2 (05:24→16:43)
[2018-09-07 06:25] LABS: Hemoglobin 7.5 g/dL (12.9-16.9); Mean Corpuscular HGB Conc 31.3 g/dL (31.6-35.5); Mean Corpuscular Hemoglobin 28.3 pg (28.0-33.3); Mean Corpuscular Volume 90.6 fL (83.0-100.0); Mean Platelet Volume 9.3 fL (9.4-12.4); Platelet Count 216 K/mcL (140-400); Red Blood Count 2.65 M/mcL (4.19-5.50); Red Cell Distribution Width 19.3 % (11.5-14.5)
[2018-09-07 06:41] LABS: Calcium 7.9 mg/dL (8.6-10.3); Potassium 3.9 mEq/L (3.5-5.1)
--- NOTE | 2018-09-07 07:51 | Pulmonology Progress Note ---
Date of Encounter: 09/07/18 Time of Encounter: 07:49 Assessment and Plan (1) Cardiac arrest Current Visit: Yes Status: Acute This is secondary to hypoxemia CTA without evidence of PE suspected that this is a hypoxic event for mucus plugging and pneumonia. Echocardiogram is stable with chronic diastolic dysfunction (2) Acute respiratory failure with hypoxia and hypercapnia Current Visit: Yes Status: Acute Patient has a permanent tracheostomy in place he is currently on vent support but we will switch to pressure support today and he can have assist control at night his undergone aggressive bronchopulmonary toileting for mucus plugging and suspected pneumonia (3) Abscess of right groin Current Visit: Yes Status: Acute Status post debridement by general surgery the ulcer site appears clean dry and intact there is cultures pending (4) ESRD (end stage renal disease) on dialysis Current Visit: Yes Status: Acute Dialysis per nephrology recommendations and need to monitor electrolytes daily (5) Anemia Current Visit: Yes Status: Acute This is chronic slight drop overnight from 8.5-7.5 which we will monitor with additional blood check later this afternoon there is no overt evidence of hemorrhage Qualifiers: Anemia type: due to chronic kidney disease Chronic kidney disease stage: on chronic dialysis Qualified Code(s): N18.6 - End stage renal disease; D63.1 - Anemia in chronic kidney disease; Z99.2 - Dependence on renal dialysis (6) Goals of care, counseling/discussion Current Visit: Yes Status: Acute Patient with multiple medical comorbidities and poor clinical/performance status palliative care was consulted and patient's CODE STATUS is DNAR per patient (7) Pneumonia Current Visit: Yes Status: Acute He is receiving broad-spectrum antimicrobials for this with planned to de- escalate based upon Qualifiers: Pneumonia type: due to unspecified organism Laterality: bilateral Lung location: lower lobe of lung Qualified Code(s): J18.1 - Lobar pneumonia, unspecified organism (8) COPD exacerbation Current Visit: Yes Status: Acute His receiving systemic glucocorticoids bronchodilators and antibiotics General ICU Care: DVT prophylaxis given GI prophylaxis given while on vent Starting enteral nutrition per dietary recommendations - we will need formal speech and swallow eval when available nothing by mouth until then Subjective Principal diagnosis: Cardiac Arrest Interval history: Post cardiac arrest patient is doing relatively well. He is following all commands and has no gross motor deficits remains hemodynamically stable now minimal vent support. CTA and echocardiogram were performed which were notable for pneumonia and no acute dysfunction respectively. He is complaining of chest pain after CPR Objective PUL Vital signs: Last Vital Signs Temp 99.0 F 09/07/18 07:31 Pulse 73 09/07/18 06:00 Resp 16 09/07/18 06:36 BP 117/50 09/07/18 06:36 Pulse Ox 94 09/07/18 06:36 General appearance: no acute distress Eyes: nonicteric ENT: other (Endotracheal tube noted in satisfactory position) Neck: supple Auscultation: bilateral: diminished breath sounds, rhonchi Cardiovascular: regular rate and rhythm Gastrointestinal: soft, non-tender Integumentary: other (Right leg ulcer is noted in the inguinal region there is no pus from this area it is dressed and clean dry and intact) Extremities: no cyanosis, edema (Chronic lower extremity edema) Musculoskeletal: no deformities non-focal exam, pupils equal and round depressed Ventilator Settings Ventilator Settings: Ventilator Settings, Last 8 Hours Ventilator Tidal Volume 500 Setting Ventilator Tidal Volume 500 Setting Ventilator Tidal Volume 500 Setting Ventilator Tidal Volume 500 Setting Ventilator Tidal Volume 500 Setting Ventilator Tidal Volume 500 Setting Ventilator Tidal Volume 500 Setting Ventilator Tidal Volume 500 Setting Ventilator Tidal Volume 500 Setting Ventilator Tidal Volume 500 Setting Ventilator Respiratory Rate 16 Setting Ventilator Respiratory Rate 16 Setting Ventilator Respiratory Rate 16 Setting Ventilator Respiratory Rate 16 Setting Ventilator Respiratory Rate 16 Setting Ventilator Respiratory Rate 16 Setting Ventilator Respiratory Rate 16 Setting Ventilator Respiratory Rate 16 Setting Ventilator Respiratory Rate 16 Setting Ventilator Respiratory Rate 16 Setting Actual Respiratory Rate 16 Actual Respiratory Rate 16 Actual Respiratory Rate 16 Actual Respiratory Rate 16 Actual Respiratory Rate 16 Actual Respiratory Rate 16 Actual Respiratory Rate 16 Actual Respiratory Rate 16 Actual Respiratory Rate 22 Actual Respiratory Rate 16 Positive End Expiratory 5 Pressure Positive End Expiratory 5 Pressure Positive End Expiratory 5 Pressure Positive End Expiratory 5 Pressure Positive End Expiratory 5 Pressure Positive End Expiratory 5 Pressure Positive End Expiratory 5 Pressure Positive End Expiratory 5 Pressure Positive End Expiratory 5 Pressure Positive End Expiratory 5 Pressure Peak Inspiratory Airway 33 Pressure Peak Inspiratory Airway 35 Pressure Peak Inspiratory Airway 34 Pressure Peak Inspiratory Airway 37 Pressure Peak Inspiratory Airway 41 Pressure Peak Inspiratory Airway 39 Pressure Peak Inspiratory Airway 36 Pressure Peak Inspiratory Airway 35 Pressure Peak Inspiratory Airway 39 Pressure Peak Inspiratory Airway 36 Pressure Results - Laboratory Findings CBC and BMP: 09/07/18 06:16 09/07/18 06:16 ABG ABG pH 7.23 pH Units (7.32-7.45) L 09/06/18 12:23 ABG pCO2 67 mmHg (35-45) H 09/06/18 12:23 ABG pO2 72 mmHg (85-104) L 09/06/18 12:23 ABG O2 Saturation 90 % (95-98) L 09/06/18 12:23 PT/INR, D-dimer PT 11.9 Seconds (9.4-12.1) 09/03/18 19:02 Abnormal lab findings: Abnormal lab results RBC 2.65 M/mcL (4.19-5.50) L 09/07/18 06:16 Hgb 7.5 g/dL (12.9-16.9) L 09/07/18 06:16 Hct 24.0 % (37.5-50.1) L 09/07/18 06:16 MCHC 31.3 g/dL (31.6-35.5) L 09/07/18 06:16 RDW 19.3 % (11.5-14.5) H 09/07/18 06:16 MPV 9.3 fL (9.4-12.4) L 09/07/18 06:16 Immature Gran % 4.3 % (0-4) H 09/06/18 10:57 Lymphocytes # 0.3 K/mcL (0.6-4.6) L 09/06/18 10:57 Nucleated RBCs/100 WBC 0.2 /100 WBC (0) H 09/06/18 10:57 ABG pH 7.23 pH Units (7.32-7.45) L 09/06/18 12:23 ABG pCO2 67 mmHg (35-45) H 09/06/18 12:23 ABG pO2 72 mmHg (85-104) L 09/06/18 12:23 ABG HCO3 28 mEq/L (21-27) H 09/06/18 12:23 ABG Total CO2 30 mEq/L (20-26) H 09/06/18 12:23 ABG O2 Saturation 90 % (95-98) L 09/06/18 12:23 Sodium 133 mEq/L (136-145) L 09/07/18 06:16 BUN 25 mg/dL (8-23) H 09/07/18 06:16 Creatinine 2.82 mg/dL (0.70-1.30) H 09/07/18 06:16 Est GFR ( Amer) 27 (> 60) L 09/07/18 06:16 Est GFR (Non-Af Amer) 22 (> 60) L 09/07/18 06:16 POC Glucose 108 mg/dL (70-99) H 09/06/18 20:39 Hemoglobin A1c 8.2 % (-5.6) H 09/04/18 05:52 Calcium 7.9 mg/dL (8.6-10.3) L 09/07/18 06:16 Venous Ioniz Calcium 0.98 mmol/L (1.15-1.35) L 09/06/18 11:09 Phosphorus 9.3 mg/dL (2.7-4.5) H 09/06/18 10:57 Magnesium 3.1 mg/dL (1.6-2.6) H 09/06/18 10:57 AST 70 Units/L (13-39) H 09/06/18 10:57 ALT 68 Units/L (7-52) H 09/06/18 10:57 Troponin I 0.57 ng/mL (< 0.04) H* 09/06/18 22:51 Serum Total Protein 6.1 g/dL (6.4-8.9) L 09/06/18 10:57 Albumin 3.0 g/dL (3.5-5.7) L 09/06/18 10:57 Albumin/Globulin Ratio 1.0 (1.1-2.2) L 09/06/18 10:57 - Microbiology Findings Microbiology Findings: Microbiology, Last 48 Hours 09/05/18 19:09 Wound Culture - Preliminary Groin Gram Negative Leif Gram Negative Leif#2 09/06/18 16:26 Blood Culture - Preliminary Peripheral Venipuncture Culture is incubating and being continuously monitored for growth. Final report to follow. 09/06/18 16:26 Blood Culture - Preliminary Peripheral Venipuncture Culture is incubating and being continuously monito red for growth. Final report to follow. - Clinical Findings Intake & Output: Intake & Output 09/06/18 09/06/18 09/07/18 15:59 23:59 07:59 Intake Total 810 / 810 220 / 220 30 / 30 Output Total 3100 / 3100 0 / 0 Balance 810 / 810 -2880 / -2880 30 Weight 96.8 kg Consult Discharge Plan - Plan Referrals: NONE,PCP [Primary Care Provider] - ([facility])
[2018-09-07] MEDS: Gabapentin 100 MG CAPSULE PO SCH ×2 (10:04→20:40)
[2018-09-07] MEDS: hydrALAZINE 10 MG TABLET PO SCH ×3 (10:04→20:40)
[2018-09-07] MEDS: Aspirin Enteric Coated 81 MG Tablet PO SCH (10:04)
[2018-09-07] MEDS: Insulin LISPRO 300 UNITS/3 ML VIAL SQ SCH ×4 (10:07→20:40)
[2018-09-07] MEDS: Sucralfate 1 GM TABLET PO SCH ×4 (10:07→20:40)
[2018-09-07] MEDS: Budesonide/Formoterol 160/4.5 1 PUFF INH IH SCH ×2 (10:07→22:05)
[2018-09-07 10:10] LABS: Acinetobacter baumannii by PCR Not Detected (Not Detect); Candida albicans by PCR Not Detected (Not Detect); Candida glabrata by PCR Not Detected (Not Detect); Candida krusei by PCR Not Detected (Not Detect); Candida parapsilosis by PCR Not Detected (Not Detect); Candida tropicalis by PCR Not Detected (Not Detect); Enterobacter cloacae Cmplx PCR Not Detected (Not Detect); Enterobacteriaceae by PCR Not Detected (Not Detect); Enterococcus by PCR DETECTED (Not Detect); Escherichia coli by PCR Not Detected (Not Detect); Klebsiella oxytoca by PCR Not Detected (Not Detect); Klebsiella pneumoniae by PCR Not Detected (Not Detect); Proteus by PCR Not Detected (Not Detect); Pseudomonas aeruginosa by PCR Not Detected (Not Detect); Serratia marcescens by PCR Not Detected (Not Detect); Staphylococcus aureus by PCR Not Detected (Not Detect); Staphylococcus by PCR Not Detected (Not Detect); Streptococcus agalactiae(B)PCR Not Detected (Not Detect); Streptococcus by PCR Not Detected (Not Detect); Streptococcus pneumoniae PCR Not Detected (Not Detect); Streptococcus pyogenes (A) PCR Not Detected (Not Detect); vanA/B Vancomycin-Resist Genes Not Detected (Not Detect)
[2018-09-07] MEDS ORDERED: Vancomycin 1 EACH in 0.9 % Sodium Chloride 250 ML IVPB PRN (11:05)
--- NOTE | 2018-09-07 14:12 | Nephrology Progress Note ---
Date of Encounter: 09/07/18 Time of Encounter: 13:00 - Assessment and Plan (1) Acute respiratory failure with hypoxia and hypercapnia Current Visit: Yes Status: Acute vent settings per primary team Continue pulm toilet (2) ESRD (end stage renal disease) on dialysis Current Visit: Yes Status: Acute s/p HD yesterday, next planned for sunday Lytes stable (3) Cardiac arrest Current Visit: Yes Status: Acute resolved due to mucus plugging (4) Abscess of right groin Current Visit: Yes Status: Acute per surgery, POD #2 I&D (5) Anemia Current Visit: Yes Status: Acute Hgb dropped from 8.5 to 7.5, etiology unclear Will defer transfusion parameters to primary team Qualifiers: Anemia type: due to chronic kidney disease Chronic kidney disease stage: on chronic dialysis Qualified Code(s): N18.6 - End stage renal disease; D63.1 - Anemia in chronic kidney disease; Z99.2 - Dependence on renal dialysis Subjective Principal diagnosis: Cardiac Arrest Interval history: Pt seen and examined still on vent support on cPAP trial. Doing well but complaining of davida pain after CPR and also concerned about ability to talk. s/p HD yesterday with only 2.5kf UF due to hypotension. Objective - Vital Signs Vital signs: Vital Signs Temp Pulse Resp BP Pulse Ox 09/07/18 13:00 86 26 128/55 97 09/07/18 12:00 86 12 126/50 95 09/07/18 11:24 99.9 F H 09/07/18 11:00 81 17 114/50 94 09/07/18 10:00 84 12 120/55 92 09/07/18 09:00 82 11 114/51 90 09/07/18 08:00 83 16 140/55 92 09/07/18 07:31 99.0 F 09/07/18 06:36 16 117/50 94 09/07/18 06:00 73 17 123/53 93 09/07/18 05:00 82 16 120/51 93 09/07/18 04:31 98.5 F 09/07/18 04:00 72 16 118/49 90 09/07/18 03:38 16 115/49 93 09/07/18 03:00 73 16 125/47 98 09/07/18 02:00 74 16 109/48 93 09/07/18 01:16 16 105/47 93 09/07/18 01:00 74 22 105/47 92 09/07/18 00:30 75 16 104/46 94 09/07/18 00:00 98.6 F 09/06/18 23:28 16 109/48 94 09/06/18 23:00 73 16 109/48 92 09/06/18 22:00 73 16 95/45 93 09/06/18 21:39 14 103/50 93 09/06/18 21:30 79 16 103/50 93 09/06/18 20:49 99.0 F 09/06/18 20:30 77 16 108/49 94 09/06/18 19:50 16 122/53 93 09/06/18 19:45 72 16 110/54 93 09/06/18 19:13 97.9 F 18 120/54 09/06/18 19:05 111/63 09/06/18 18:50 106/57 09/06/18 18:35 100/53 09/06/18 18:20 105/55 09/06/18 18:05 113/56 09/06/18 18:00 74 16 106/58 99 09/06/18 17:50 103/54 09/06/18 17:35 111/66 09/06/18 17:20 120/56 09/06/18 17:07 16 92/53 99 09/06/18 17:05 92/54 09/06/18 17:00 62 16 92/54 99 09/06/18 16:50 96/54 09/06/18 16:45 110/57 09/06/18 16:35 108/58 09/06/18 16:20 92/50 09/06/18 16:10 91/52 09/06/18 16:05 91/52 09/06/18 16:00 65 16 91/52 97 09/06/18 15:50 92/52 09/06/18 15:45 88/48 09/06/18 15:35 97.7 F 16 109/51 09/06/18 15:31 16 109/51 91 09/06/18 15:00 97.7 F 74 16 120/53 98 Intake and Output 09/06/18 09/07/18 09/07/18 23:59 07:59 15:59 Intake Total 220 / 220 30 / 30 240 / 240 Output Total 3100 / 3100 0 / 0 Balance -2880 / -2880 30 / 30 240 / 240 Intake: IV Fluids 100 / 100 100 / 100 Zosyn 3.375 GM In 0.9 % Sodium 100 / 100 100 / 100 Chloride (Mini-Bag +) 100 ML @ 25 mls/hr IVPB Q12H [facility] Rx#: [id number] Tube Feeding 90 / 90 Free Water 60 / 60 30 / 30 50 / 50 Free Water Intake Amount 60 / 60 0 / 0 Output: Urine 0 / 0 0 / 0 Total Dialysis (HD) Output 3100 / 3100 Other: Weight 96.8 kg Blood Glucose* 108 121 Hemodialysis Net Fluid Removed 2500 (mL) Patient Weight 09/07/18 23:59 Weight 96.8 kg - General Appearance General appearance: Present: chronically ill Exam: on vent with trach EENT: Present: ATNC, mucous membranes moist Neck: Present: no JVD, supple Additional Comments: with trach Additional Comments: good areation ant bilat Cardiology: Present: edema (trace LE bilat), normal S1, normal S2 Dialysis Vascular Access: Venous Catheter (permcath) Gastrointestinal: Present: no tenderness, no guarding Additional Comments: +PEG Integumentary: Present: warm and dry Additional Comments: R groin dressing intact Additional Comments: awake communicative Musculoskeletal: Present: no deformities Psychiatric: Present: cooperative - Lab 09/07/18 06:16 09/07/18 06:16 Most recent lab results ABG pH 7.23 pH Units (7.32-7.45) L 09/06/18 12:23 ABG pCO2 67 mmHg (35-45) H 09/06/18 12:23 ABG pO2 72 mmHg (85-104) L 09/06/18 12:23 ABG HCO3 28 mEq/L (21-27) H 09/06/18 12:23 ABG O2 Saturation 90 % (95-98) L 09/06/18 12:23 Calcium 7.9 mg/dL (8.6-10.3) L 09/07/18 06:16 Phosphorus 9.3 mg/dL (2.7-4.5) H 09/06/18 10:57 Magnesium 3.1 mg/dL (1.6-2.6) H 09/06/18 10:57 Consult Discharge Plan - Plan Referrals: NONE,PCP [Primary Care Provider] - (Patient is from [facility])
--- NOTE | 2018-09-07 15:07 | General Surgery Progress Note ---
Date of Encounter: 09/07/18 Time of Encounter: 08:00 - Assessment and Plan (1) Abscess of right groin Current Visit: Yes Status: Acute Continue with packing. Start tube feeds (Nepro) today. Okay to allow liquids to drink patient is able to tolerate swallowing. Continue with antibiotics. Subjective Patient reports: other (Patient with tracheostomy on vent. Awake and alert. Patient requesting something to drink. Minimal pain.) Objective Vital Signs - Last 8 Hours Temp Pulse Resp BP Pulse Ox 09/07/18 14:00 92 11 109/52 94 09/07/18 13:00 86 26 128/55 97 09/07/18 12:00 86 12 126/50 95 09/07/18 11:24 99.9 F H 09/07/18 11:00 81 17 114/50 94 09/07/18 10:00 84 12 120/55 92 09/07/18 09:00 82 11 114/51 90 09/07/18 08:00 83 16 140/55 92 09/07/18 07:31 99.0 F Intake and Output 09/06/18 09/07/18 09/07/18 23:59 07:59 15:59 Intake Total 220 / 220 30 / 30 240 / 240 Output Total 3100 / 3100 0 / 0 Balance -2880 / -2880 30 / 30 240 / 240 Intake: IV Fluids 100 / 100 100 / 100 Zosyn 3.375 GM In 0.9 % Sodium 100 / 100 100 / 100 Chloride (Mini-Bag +) 100 ML @ 25 mls/hr IVPB Q12H [facility] Rx#: [id number] Tube Feeding 90 / 90 Free Water 60 / 60 30 / 30 50 / 50 Free Water Intake Amount 60 / 60 0 / 0 Output: Urine 0 / 0 0 / 0 Total Dialysis (HD) Output 3100 / 3100 Other: Weight 96.8 kg Blood Glucose* 108 121 Hemodialysis Net Fluid Removed 2500 (mL) Patient Weight 09/07/18 23:59 Weight 96.8 kg - General physical appearance well nourished, no distress - Incision Incision: Present: clean and dry, intact (Packing removed from right groin with helping better granulation tissue. No active exudate. No surrounding erythema present.) - Labs 09/07/18 06:16 09/07/18 06:16 Diabetes panel 09/07/18 Range/Units 06:16 Sodium 133 L (136-145) mEq/L Potassium 3.9 (3.5-5.1) mEq/L Chloride 98 (98-107) mEq/L Carbon Dioxide 25 (23-29) mEq/L BUN 25 H (8-23) mg/dL Creatinine 2.82 H (0.70-1.30) mg/dL Glucose 100 (70-105) mg/dL Calcium 7.9 L (8.6-10.3) mg/dL Calcium panel 09/07/18 Range/Units 06:16 Calcium 7.9 L (8.6-10.3) mg/dL Pituitary panel 09/07/18 Range/Units 06:16 Sodium 133 L (136-145) mEq/L Potassium 3.9 (3.5-5.1) mEq/L Chloride 98 (98-107) mEq/L Carbon Dioxide 25 (23-29) mEq/L BUN 25 H (8-23) mg/dL Creatinine 2.82 H (0.70-1.30) mg/dL Glucose 100 (70-105) mg/dL Calcium 7.9 L (8.6-10.3) mg/dL Adrenal panel 09/07/18 Range/Units 06:16 Sodium 133 L (136-145) mEq/L Potassium 3.9 (3.5-5.1) mEq/L Chloride 98 (98-107) mEq/L Carbon Dioxide 25 (23-29) mEq/L BUN 25 H (8-23) mg/dL Creatinine 2.82 H (0.70-1.30) mg/dL Glucose 100 (70-105) mg/dL Calcium 7.9 L (8.6-10.3) mg/dL Consult Discharge Plan - Plan Referrals: NONE,PCP [Primary Care Provider] - (Patient is from [facility])
[2018-09-07] MEDS: MethylPREDNISolone 40 MG/ML VIAL IVP SCH (16:43)
[2018-09-07] MEDS: Melatonin 3 MG TABLET PO SCH (20:40)
[2018-09-07] MEDS: 0.9 % Sodium Chloride 1,000 ML IVC SCH (20:41)
[2018-09-08] MEDS: OXYCODONE Oral CONC 10 MG/0.5 ML ORAL.SYG SL PRN ×2 (01:37→06:32)
[2018-09-08] MEDS: Insulin LISPRO 300 UNITS/3 ML VIAL SQ SCH ×4 (04:00→21:56)
[2018-09-08 04:32] LABS: Hematocrit 23.3 % (37.5-50.1); Hemoglobin 7.1 g/dL (12.9-16.9); Mean Corpuscular HGB Conc 30.5 g/dL (31.6-35.5); Mean Corpuscular Hemoglobin 27.7 pg (28.0-33.3); Mean Platelet Volume 9.9 fL (9.4-12.4); Platelet Count 227 K/mcL (140-400); Red Blood Count 2.56 M/mcL (4.19-5.50); Red Cell Distribution Width 19.4 % (11.5-14.5)
[2018-09-08 04:47] LABS: Calcium 7.9 mg/dL (8.6-10.3); Potassium 4.6 mEq/L (3.5-5.1)
[2018-09-08] MEDS: Piperacillin/Tazobactam 3.375 GM in 0.9 % Sodium Chloride Mini Bag 100 ML IVPB SCH ×2 (05:28→16:00)
[2018-09-08] MEDS: MethylPREDNISolone 40 MG/ML VIAL IVP SCH ×2 (05:31→17:46)
[2018-09-08] MEDS: *HR* Heparin 5,000 UNIT/ML VIAL SQ SCH ×2 (05:31→17:46)
--- NOTE | 2018-09-08 07:21 | Pulmonology Progress Note ---
Date of Encounter: 09/08/18 Time of Encounter: 07:21 Assessment and Plan (1) Acute respiratory failure with hypoxia and hypercapnia Current Visit: Yes Status: Acute Patient has a permanent tracheostomy in place he is currently on trach collar and tolerating this he can be transitioned to pressure support ventilation if needed at night (2) Abscess of right groin Current Visit: Yes Status: Acute Status post debridement by general surgery the ulcer site appears clean dry and intact there is cultures pending (3) ESRD (end stage renal disease) on dialysis Current Visit: Yes Status: Acute Dialysis per nephrology recommendations (MWF) and need to monitor electrolytes daily (4) Anemia Current Visit: Yes Status: Acute This is chronic slight drop overnight from 8.5-7.5 which we will monitor with additional blood check later this afternoon there is no overt evidence of hemorrhage Qualifiers: Anemia type: due to chronic kidney disease Chronic kidney disease stage: on chronic dialysis Qualified Code(s): N18.6 - End stage renal disease; D63.1 - Anemia in chronic kidney disease; Z99.2 - Dependence on renal dialysis (5) Pneumonia Current Visit: Yes Status: Acute He is receiving broad-spectrum antimicrobials for this with planned to de- escalate based upon Qualifiers: Pneumonia type: due to unspecified organism Laterality: bilateral Lung location: lower lobe of lung Qualified Code(s): J18.1 - Lobar pneumonia, unspecified organism (6) COPD exacerbation Current Visit: Yes Status: Acute His receiving systemic glucocorticoids bronchodilators and antibiotics General ICU Care: DVT prophylaxis given GI prophylaxis given while on vent Starting enteral nutrition per dietary recommendations - we will need formal speech and swallow eval when available nothing by mouth until then (7) Goals of care, counseling/discussion Current Visit: Yes Status: Acute Patient with multiple medical comorbidities and poor clinical/performance status palliative care was consulted and patient's CODE STATUS is DNAR per patient (8) Bacteremia due to Enterococcus Current Visit: Yes Status: Acute 1 out of 2 blood cultures with enterococcus unclear if this is contaminant or not also has evidence of pneumonia may need formal infectious disease consultation tomorrow final speciation pending patient's on Zosyn and vancomycin which is appropriate treatment empirically pending final speciation From pulmonary standpoint and hemodynamics he is stable for transfer to stepdown unit for ongoing care Subjective Principal diagnosis: Cardiac Arrest Interval history: Thick secretions earlier this morning these were suctioned and subsequently patient has been able to tolerate trach collar without to much issue. He generally uncomfortable describing pain which is chronic in his left hip radiating down his leg. He also has some persistent chest pain after CPR. Otherwise has remained hemodynamically stable Objective PUL Vital signs: Last Vital Signs Temp 99.6 F 09/08/18 04:10 Pulse 82 09/08/18 07:12 Resp 16 09/08/18 07:12 BP 118/66 09/08/18 07:12 Pulse Ox 93 09/08/18 07:12 General appearance: no acute distress Eyes: nonicteric ENT: other (Trach site evaluated without evidence of infection or purulence) Auscultation: bilateral: wheezes, rhonchi Cardiovascular: irregular rhythm Gastrointestinal: normoactive bowel sounds, soft, non-tender, other (PEG tube site is clean dry and intact without surrounding erythema) Integumentary: normal Extremities: no cyanosis, pink and warm, pulses normal, edema Musculoskeletal: no deformities normal mental status, non-focal exam depressed Ventilator Settings Ventilator Settings: Ventilator Settings, Last 8 Hours Ventilator Tidal Volume 500 Setting Ventilator Tidal Volume 500 Setting Ventilator Tidal Volume 500 Setting Ventilator Tidal Volume 500 Setting Ventilator Tidal Volume 500 Setting Ventilator Tidal Volume 500 Setting Ventilator Tidal Volume 500 Setting Ventilator Tidal Volume 500 Setting Ventilator Tidal Volume 500 Setting Ventilator Tidal Volume 500 Setting Ventilator Tidal Volume 500 Setting Ventilator Tidal Volume 500 Setting Ventilator Respiratory Rate 16 Setting Ventilator Respiratory Rate 16 Setting Ventilator Respiratory Rate 16 Setting Ventilator Respiratory Rate 16 Setting Ventilator Respiratory Rate 16 Setting Ventilator Respiratory Rate 16 Setting Ventilator Respiratory Rate 16 Setting Ventilator Respiratory Rate 16 Setting Ventilator Respiratory Rate 16 Setting Ventilator Respiratory Rate 16 Setting Ventilator Respiratory Rate 16 Setting Ventilator Respiratory Rate 16 Setting Actual Respiratory Rate 16 Actual Respiratory Rate 16 Actual Respiratory Rate 16 Actual Respiratory Rate 16 Actual Respiratory Rate 16 Actual Respiratory Rate 16 Actual Respiratory Rate 16 Actual Respiratory Rate 16 Actual Respiratory Rate 16 Actual Respiratory Rate 16 Actual Respiratory Rate 16 Actual Respiratory Rate 16 Positive End Expiratory 5 Pressure Positive End Expiratory 5 Pressure Positive End Expiratory 5 Pressure Positive End Expiratory 5 Pressure Positive End Expiratory 5 Pressure Positive End Expiratory 5 Pressure Positive End Expiratory 5 Pressure Positive End Expiratory 5 Pressure Positive End Expiratory 5 Pressure Positive End Expiratory 5 Pressure Positive End Expiratory 5 Pressure Positive End Expiratory 5 Pressure Peak Inspiratory Airway 28 Pressure Peak Inspiratory Airway 28 Pressure Peak Inspiratory Airway 29 Pressure Peak Inspiratory Airway 28 Pressure Peak Inspiratory Airway 29 Pressure Peak Inspiratory Airway 27 Pressure Peak Inspiratory Airway 27 Pressure Peak Inspiratory Airway 31 Pressure Peak Inspiratory Airway 28 Pressure Peak Inspiratory Airway 28 Pressure Peak Inspiratory Airway 26 Pressure Peak Inspiratory Airway 26 Pressure Results - Laboratory Findings CBC and BMP: 09/08/18 03:58 09/08/18 03:58 ABG ABG pH 7.23 pH Units (7.32-7.45) L 09/06/18 12:23 ABG pCO2 67 mmHg (35-45) H 09/06/18 12:23 ABG pO2 72 mmHg (85-104) L 09/06/18 12:23 ABG O2 Saturation 90 % (95-98) L 09/06/18 12:23 PT/INR, D-dimer PT 11.9 Seconds (9.4-12.1) 09/03/18 19:02 Abnormal lab findings: Abnormal lab results RBC 2.56 M/mcL (4.19-5.50) L 09/08/18 03:58 Hgb 7.1 g/dL (12.9-16.9) L 09/08/18 03:58 Hct 23.3 % (37.5-50.1) L 09/08/18 03:58 MCH 27.7 pg (28.0-33.3) L 09/08/18 03:58 MCHC 30.5 g/dL (31.6-35.5) L 09/08/18 03:58 RDW 19.4 % (11.5-14.5) H 09/08/18 03:58 Immature Gran % 4.3 % (0-4) H 09/06/18 10:57 Lymphocytes # 0.3 K/mcL (0.6-4.6) L 09/06/18 10:57 Nucleated RBCs/100 WBC 0.2 /100 WBC (0) H 09/06/18 10:57 ABG pH 7.23 pH Units (7.32-7.45) L 09/06/18 12:23 ABG pCO2 67 mmHg (35-45) H 09/06/18 12:23 ABG pO2 72 mmHg (85-104) L 09/06/18 12:23 ABG HCO3 28 mEq/L (21-27) H 09/06/18 12:23 ABG Total CO2 30 mEq/L (20-26) H 09/06/18 12:23 ABG O2 Saturation 90 % (95-98) L 09/06/18 12:23 Sodium 129 mEq/L (136-145) L 09/08/18 03:58 Chloride 94 mEq/L (98-107) L 09/08/18 03:58 BUN 41 mg/dL (8-23) H 09/08/18 03:58 Creatinine 4.00 mg/dL (0.70-1.30) H 09/08/18 03:58 Est GFR ( Amer) 18 (> 60) L 09/08/18 03:58 Est GFR (Non-Af Amer) 15 (> 60) L 09/08/18 03:58 Glucose 222 mg/dL (70-105) H 09/08/18 03:58 POC Glucose 240 mg/dL (70-99) H 09/08/18 03:31 Hemoglobin A1c 8.2 % (-5.6) H 09/04/18 05:52 Calcium 7.9 mg/dL (8.6-10.3) L 09/08/18 03:58 Venous Ioniz Calcium 0.98 mmol/L (1.15-1.35) L 09/06/18 11:09 Phosphorus 9.3 mg/dL (2.7-4.5) H 09/06/18 10:57 Magnesium 3.1 mg/dL (1.6-2.6) H 09/06/18 10:57 AST 70 Units/L (13-39) H 09/06/18 10:57 ALT 68 Units/L (7-52) H 09/06/18 10:57 Troponin I 0.57 ng/mL (< 0.04) H* 09/06/18 22:51 Serum Total Protein 6.1 g/dL (6.4-8.9) L 09/06/18 10:57 Albumin 3.0 g/dL (3.5-5.7) L 09/06/18 10:57 Albumin/Globulin Ratio 1.0 (1.1-2.2) L 09/06/18 10:57 Enterococcus sp PCR DETECTED (Not Detect) A 09/06/18 16:26 - Microbiology Findings Microbiology Findings: Microbiology, Last 48 Hours 09/06/18 16:26 Blood Culture - Preliminary Peripheral Venipuncture Gram Positive Cocci 09/05/18 19:09 Wound Culture - Preliminary Groin Gram Negative Leif Gram Negative Leif#2 11/30/18 16:26 Blood Culture - Preliminary Peripheral Venipuncture Culture is incubating and being continuously monitored for growth. Final report to follow. - Diagnostic Findings Chest x-ray: report reviewed, image reviewed - Clinical Findings Intake & Output: Intake & Output 09/07/18 09/07/18 09/08/18 15:59 23:59 07:59 Intake Total 240 / 240 650 / 650 447 / 447 Output Total 0 / 0 0 / 0 Balance 240 / 240 650 / 650 447 / 447 Weight 96.6 kg Consult Discharge Plan - Plan Referrals: NONE,PCP [Primary Care Provider] - (Patient is from [facility])
[2018-09-08] MEDS: Sucralfate 1 GM TABLET PO SCH ×4 (07:55→21:52)
[2018-09-08] MEDS: hydrALAZINE 10 MG TABLET PO SCH ×3 (07:56→21:56)
[2018-09-08] MEDS: Gabapentin 100 MG CAPSULE PO SCH ×2 (07:56→21:57)
[2018-09-08] MEDS: *HR* Digoxin 0.125 MG TABLET PO SCH (07:56)
[2018-09-08] MEDS: Aspirin Enteric Coated 81 MG Tablet PO SCH (07:56)
[2018-09-08] MEDS: Budesonide/Formoterol 160/4.5 1 PUFF INH IH SCH ×2 (08:08→23:48)
--- NOTE | 2018-09-08 09:57 | Nephrology Progress Note ---
Date of Encounter: 09/08/18 Time of Encounter: 10:00 - Assessment and Plan (1) Acute respiratory failure with hypoxia and hypercapnia Current Visit: Yes Status: Acute vent settings per primary team Continue pulm toilet (2) ESRD (end stage renal disease) on dialysis Current Visit: Yes Status: Acute s/p HD sunday, next planned for sunday Lytes stable (3) Cardiac arrest Current Visit: Yes Status: Acute resolved due to mucus plugging (4) Abscess of right groin Current Visit: Yes Status: Acute per surgery, POD #3 I&D (5) Anemia Current Visit: Yes Status: Acute Hgb dropped from 8.5 further from 7.5 to 7.1, etiology unclear Will defer transfusion parameters to primary team Qualifiers: Anemia type: due to chronic kidney disease Chronic kidney disease stage: on chronic dialysis Qualified Code(s): N18.6 - End stage renal disease; D63.1 - Anemia in chronic kidney disease; Z99.2 - Dependence on renal dialysis Subjective Principal diagnosis: Cardiac Arrest Interval history: Pt seen and examined still on vent support on cPAP trial. Doing well but complaining of davida pain after CPR and also concerned about ability to talk. s/p HD yesterday with only 2.5kf UF due to hypotension. Objective - Vital Signs Vital signs: Vital Signs Temp Pulse Resp BP Pulse Ox 09/08/18 08:00 74 12 141/76 96 09/08/18 07:55 16 141/76 96 09/08/18 07:25 98.4 F 09/08/18 07:12 82 16 118/66 93 09/08/18 06:11 16 111/55 95 09/08/18 06:00 73 16 111/55 94 09/08/18 05:30 78 16 111/67 94 09/08/18 04:18 16 122/62 94 09/08/18 04:10 99.6 F 09/08/18 04:00 85 16 122/65 94 09/08/18 03:30 85 16 127/57 100 09/08/18 02:14 16 113/56 100 09/08/18 02:00 74 16 113/56 100 09/08/18 01:30 80 16 115/60 98 09/08/18 00:20 99.6 F 09/08/18 00:14 16 112/60 95 09/08/18 00:00 86 16 112/60 95 09/07/18 23:00 83 16 113/61 94 09/07/18 22:05 16 106/52 95 09/07/18 22:00 74 10 106/57 96 09/07/18 21:00 86 10 116/53 96 09/07/18 20:30 82 10 126/55 96 09/07/18 20:10 10 122/58 94 09/07/18 19:10 99.7 F H 09/07/18 19:00 77 9 122/63 97 09/07/18 18:00 82 10 113/52 97 09/07/18 17:08 11 113/52 94 09/07/18 17:00 97 11 107/55 94 09/07/18 16:00 98.2 F 88 10 111/54 96 09/07/18 15:40 14 113/52 98 09/07/18 15:34 98.2 F 09/07/18 15:00 76 24 125/80 96 09/07/18 14:00 92 11 109/52 94 09/07/18 13:00 86 26 128/55 97 09/07/18 12:00 86 12 126/50 95 09/07/18 11:29 16 107/55 94 09/07/18 11:24 99.9 F H 09/07/18 11:00 81 17 114/50 94 09/07/18 10:07 11 107/55 90 09/07/18 10:00 84 12 120/55 92 Intake and Output 09/07/18 09/08/18 09/08/18 23:59 07:59 15:59 Intake Total 650 / 650 447 / 447 134 / 134 Output Total 0 / 0 0 / 0 Balance 650 / 650 447 / 447 134 / 134 Intake: IV Fluids 100 / 100 Zosyn 3.375 GM In 0.9 % Sodium 100 / 100 Chloride (Mini-Bag +) 100 ML @ 25 mls/hr IVPB Q12H [facility] Rx#: [id number] Tube Feeding 180 / 180 147 / 147 134 / 134 Free Water 90 / 90 100 / 100 Free Water Intake Amount 280 / 280 200 / 200 Output: Urine 0 / 0 0 / 0 Catheter 0 / 0 Other: Weight 96.6 kg Blood Glucose* 179 223 Patient Weight 09/08/18 23:59 Weight 96.6 kg - General Appearance General appearance: Present: chronically ill Exam: with trach on ventilator EENT: Present: ATNC, mucous membranes moist Neck: Present: no JVD, supple Additional Comments: good areation ant bilat Cardiology: Present: edema (ankles bilat), normal S1, normal S2 Dialysis Vascular Access: Venous Catheter (permcath) Gastrointestinal: Present: no tenderness, no guarding Integumentary: Present: warm and dry Neurologic: Present: no focal deficit (awake and communicative) Musculoskeletal: Present: no deformities Psychiatric: Present: cooperative - Lab 09/08/18 03:58 09/08/18 03:58 Most recent lab results ABG pH 7.23 pH Units (7.32-7.45) L 09/06/18 12:23 ABG pCO2 67 mmHg (35-45) H 09/06/18 12:23 ABG pO2 72 mmHg (85-104) L 09/06/18 12:23 ABG HCO3 28 mEq/L (21-27) H 09/06/18 12:23 ABG O2 Saturation 90 % (95-98) L 09/06/18 12:23 Calcium 7.9 mg/dL (8.6-10.3) L 09/08/18 03:58 Phosphorus 9.3 mg/dL (2.7-4.5) H 09/06/18 10:57 Magnesium 3.1 mg/dL (1.6-2.6) H 09/06/18 10:57 Consult Discharge Plan - Plan Referrals: NONE,PCP [Primary Care Provider] - (Patient is from [facility])
--- NOTE | 2018-09-08 10:33 | General Surgery Progress Note ---
Date of Encounter: 09/08/18 Time of Encounter: 10:31 - Assessment and Plan (1) Abscess of right groin Current Visit: Yes Status: Acute Continue with packing. On PEG feeds. To be evaluated by speech pathology on Sunday prior to starting PO liquids. Subjective Patient reports: other (Trached. Tolerating PEG feeds. No abdominal pain.) Objective Vital Signs - Last 8 Hours Temp Pulse Resp BP Pulse Ox 09/08/18 10:00 79 14 134/70 92 09/08/18 09:00 77 20 134/73 92 09/08/18 08:00 74 12 141/76 96 09/08/18 07:55 16 141/76 96 09/08/18 07:25 98.4 F 09/08/18 07:12 82 16 118/66 93 09/08/18 06:11 16 111/55 95 09/08/18 06:00 73 16 111/55 94 09/08/18 05:30 78 16 111/67 94 09/08/18 04:18 16 122/62 94 09/08/18 04:10 99.6 F 09/08/18 04:00 85 16 122/65 94 09/08/18 03:30 85 16 127/57 100 Intake and Output 09/07/18 09/08/18 09/08/18 23:59 07:59 15:59 Intake Total 650 / 650 447 / 447 184 / 184 Output Total 0 / 0 0 / 0 Balance 650 / 650 447 / 447 184 / 184 Intake: IV Fluids 100 / 100 Zosyn 3.375 GM In 0.9 % Sodium 100 / 100 Chloride (Mini-Bag +) 100 ML @ 25 mls/hr IVPB Q12H [facility] Rx#: [id number] Tube Feeding 180 / 180 147 / 147 134 / 134 Free Water 90 / 90 100 / 100 Free Water Intake Amount 280 / 280 200 / 200 50 / 50 Output: Urine 0 / 0 0 / 0 Catheter 0 / 0 Other: Weight 96.6 kg Blood Glucose* 179 223 Patient Weight 09/08/18 23:59 Weight 96.6 kg - General physical appearance well nourished, no distress - Incision Incision: Present: clean and dry (No erythem present. Packing removed from right groin wound-clean bed with granulation tissue forming. No drainage.) - Labs 09/08/18 03:58 09/08/18 03:58 Diabetes panel 09/08/18 Range/Units 03:58 Sodium 129 L (136-145) mEq/L Potassium 4.6 (3.5-5.1) mEq/L Chloride 94 L (98-107) mEq/L Carbon Dioxide 24 (23-29) mEq/L BUN 41 H (8-23) mg/dL Creatinine 4.00 H (0.70-1.30) mg/dL Glucose 222 H (70-105) mg/dL Calcium 7.9 L (8.6-10.3) mg/dL Calcium panel 09/08/18 Range/Units 03:58 Calcium 7.9 L (8.6-10.3) mg/dL Pituitary panel 09/08/18 Range/Units 03:58 Sodium 129 L (136-145) mEq/L Potassium 4.6 (3.5-5.1) mEq/L Chloride 94 L (98-107) mEq/L Carbon Dioxide 24 (23-29) mEq/L BUN 41 H (8-23) mg/dL Creatinine 4.00 H (0.70-1.30) mg/dL Glucose 222 H (70-105) mg/dL Calcium 7.9 L (8.6-10.3) mg/dL Adrenal panel 09/08/18 Range/Units 03:58 Sodium 129 L (136-145) mEq/L Potassium 4.6 (3.5-5.1) mEq/L Chloride 94 L (98-107) mEq/L Carbon Dioxide 24 (23-29) mEq/L BUN 41 H (8-23) mg/dL Creatinine 4.00 H (0.70-1.30) mg/dL Glucose 222 H (70-105) mg/dL Calcium 7.9 L (8.6-10.3) mg/dL Consult Discharge Plan - Plan Referrals: NONE,PCP [Primary Care Provider] - (Patient is from [facility])
[2018-09-08] MEDS: Melatonin 3 MG TABLET PO SCH (21:50)
[2018-09-09] MEDS: Piperacillin/Tazobactam 3.375 GM in 0.9 % Sodium Chloride Mini Bag 100 ML IVPB SCH ×2 (04:31→17:57)
[2018-09-09] MEDS: *HR* Heparin 5,000 UNIT/ML VIAL SQ SCH ×2 (04:32→18:00)
[2018-09-09] MEDS: MethylPREDNISolone 40 MG/ML VIAL IVP SCH ×2 (04:32→17:56)
[2018-09-09 04:50] LABS: Hematocrit 24.4 % (37.5-50.1); Hemoglobin 7.4 g/dL (12.9-16.9); Mean Corpuscular HGB Conc 30.3 g/dL (31.6-35.5); Mean Corpuscular Hemoglobin 27.7 pg (28.0-33.3); Mean Corpuscular Volume 91.4 fL (83.0-100.0); Platelet Count 248 K/mcL (140-400); Red Blood Count 2.67 M/mcL (4.19-5.50); Red Cell Distribution Width 19.1 % (11.5-14.5)
[2018-09-09 05:11] LABS: Calcium 8.1 mg/dL (8.6-10.3)
[2018-09-09] MEDS ORDERED: Vancomycin 1 EACH in 0.9 % Sodium Chloride 250 ML IVPB PRN (07:18)
[2018-09-09] MEDS ORDERED: Naloxone 0.4 MG/ML INJ IVP PRN ×2 (07:18)
[2018-09-09] MEDS ORDERED: Ipratropium/Albuterol Neb 3 ML IH PRN (07:18)
[2018-09-09] MEDS ORDERED: *HR* Heparin 10,000 UNIT/10 ML VIAL IV PRN ×2 (07:18→08:24)
[2018-09-09] MEDS ORDERED: 0.9 % Sodium Chloride 1,000 ML PRIME SCH ×2 (07:18→08:30)
[2018-09-09] MEDS ORDERED: *HR* Dextrose 50 % in Water (Syg) 50 ML SYRINGE IVP PRN (07:18)
[2018-09-09] MEDS ORDERED: Acetaminophen 325 MG TABLET PO PRN (07:18)
[2018-09-09] MEDS ORDERED: 0.9 % Sodium Chloride 250 ML IVC PRN ×2 (07:18→08:24)
[2018-09-09] MEDS ORDERED: Dextrose Gel 15 GM/37.5 ML TUBE PO PRN ×2 (07:18)
[2018-09-09] MEDS ORDERED: D5% in Water 1,000 ML IVC PRN (07:18)
[2018-09-09] MEDS ORDERED: Aminoglycoside Consult 1 EACH MC ONE (09:02)
--- NOTE | 2018-09-09 09:27 | Internal Med Progress Note ---
<Nya Marsh - Last Filed: 09/09/18 11:32> Hospitalist Progress Note - Encounter Date of Encounter: 09/09/18 Time of Encounter: 09:24 - Subjective Interval History: 68-year-old male evaluated at bedside. He denies nausea, vomiting, diarrhea, fever, chills, chest pain, shortness of breath. He denies any new complaints today. - Exam Vitals: Temp Pulse Resp BP Pulse Ox 97.8 F 82 16 146/82 95 09/09/18 08:15 09/09/18 08:15 09/09/18 08:15 09/09/18 08:15 09/09/18 08:15 Exam: General: alert and oriented 3, pleasant, no acute distress neck: tracheostomy in place. Lungs: decreased breath sounds throughout CV: RRR, no murmurs, rubs, gallops. S1, S2 noted. Abdomen: soft, non distended, non tender, bowel sounds present. PEG tube in place. no organomegaly. Extremities: +1 bilateral lower extremity pitting edema. no cyanosis or clubbing noted. SKin: no rashes noted. RIght groin packed with dressing. no purulent discharge noted. - Assessment and Plan (1) Bacteremia due to Enterococcus Current Visit: Yes Status: Acute Assessment and Plan: 09/06: blood culture positive for enterococcous faecalis, S: ampicillin, cipro, daptomycin, linezolid, vancomycin 09/05: wound culture positive for proteus, Gram negative rods x2 S: unasyn, cipro, ertapenem, gentamicin, Imipenem, levaquin, zosyn Plan: repeat blood cultures x2 ordered today consult to ID regarding group home ABX. ibis received 5 days vancomycin- discontinued today. Zosyn day 5 (2) Acute respiratory failure with hypoxia and hypercapnia Current Visit: Yes Status: Acute Assessment and Plan: Status post cardiac arrest on 09/06, likely secondary to mucus plugging. Patient has been seen and managed by ICU team. Plan: continue antibiotic regimen, scheduled DuoNebs, IV steroids. (3) Abscess of right groin Current Visit: Yes Status: Acute Assessment and Plan: Patient admitted for right groin abscess. 09/05-he received I&D of right groin with debridement Plan: wound care and dressings per surgery team and wound care team. (4) ESRD (end stage renal disease) on dialysis Current Visit: Yes Status: Acute Assessment and Plan: Dialysis per nephrology team. (5) Anemia Current Visit: Yes Status: Acute Assessment and Plan: History of chronic anemia continue to monitor (6) COPD exacerbation Current Visit: Yes Status: Acute Assessment and Plan: Likely secondary to mucus plugging, pneumonia. 09/08 chest x-ray showed stable CHF with mild effusions the lung base. Plan: continue Solu-Medrol 40 mg b.i.d., scheduled duoNebs, ABX as above (7) Pneumonia Current Visit: Yes Status: Acute Assessment and Plan: Plan as above (8) Goals of care, counseling/discussion Current Visit: Yes Status: Acute Assessment and Plan: Patient seen and evaluated by palliative care team, with extensive goals of care conversations. Plan is to return to [place] at [place], code status changed to DNRCCA. (9) DVT prophylaxis Current Visit: Yes Status: Acute Assessment and Plan: Heparin SQ - Time Spent with Patient Total time spent is greater than 50% in coordination of care (as documented) at patient's floor/unit and/or counseling patient: Plan of Care Discussed with: patient Internal Medicine: Result - Labs CBC & Chem 7: 09/09/18 04:35 09/09/18 04:35 Labs: Short CBC 09/09/18 Range/Units 04:35 WBC 5.4 (4.3-11.1) K/mcL Hgb 7.4 L (12.9-16.9) g/dL Hct 24.4 L (37.5-50.1) % Plt Count 248 (140-400) K/mcL BMP 09/09/18 04:35 Sodium 131 L Potassium 5.0 Chloride 94 L Carbon Dioxide 26 BUN 54 H Creatinine 5.02 H Glucose 227 H Calcium 8.1 L - ABG Interpretation ABG results: ABG ABG pH 7.23 pH Units (7.32-7.45) L 09/06/18 12:23 ABG pCO2 67 mmHg (35-45) H 09/06/18 12:23 ABG pO2 72 mmHg (85-104) L 09/06/18 12:23 ABG O2 Saturation 90 % (95-98) L 09/06/18 12:23 PT/INR, D-dimer PT 11.9 Seconds (9.4-12.1) 09/03/18 19:02 - Impressions Impressions Chest X-Ray 09/08/18 08:04 IMPRESSION: Stable acute congestive heart failure with mild effusions and lung base consolidation. D/ / 09/08/2018 09:50:47 Ramin Jones MD / cyndee Interpreting Provider: Ramin Jones MD Consult Discharge Plan - Plan Referrals: NONE,PCP [Primary Care Provider] - (Patient is from [facility]) <Hesham Israel - Last Filed: 09/09/18 12:52> Hospitalist Progress Note - Encounter Date of Encounter: 09/09/18 Time of Encounter: 10:30 - Exam Vitals: Temp Pulse Resp BP Pulse Ox 97.8 F 82 16 146/82 95 09/09/18 08:15 09/09/18 08:15 09/09/18 08:15 09/09/18 08:15 09/09/18 08:15 - Assessment and Plan (1) Abscess of right groin Current Visit: Yes Status: Acute (2) ESRD (end stage renal disease) on dialysis Current Visit: Yes Status: Acute (3) Anemia Current Visit: Yes Status: Acute (4) Acute respiratory failure with hypoxia and hypercapnia Current Visit: Yes Status: Acute (5) Goals of care, counseling/discussion Current Visit: Yes Status: Acute (6) Pneumonia Current Visit: Yes Status: Acute (7) COPD exacerbation Current Visit: Yes Status: Acute (8) Bacteremia due to Enterococcus Current Visit: Yes Status: Acute (9) DVT prophylaxis Current Visit: Yes Status: Acute - Time Spent with Patient Total time spent is greater than 50% in coordination of care (as documented) at patient's floor/unit and/or counseling patient: Internal Medicine: Result - Labs CBC & Chem 7: 09/09/18 04:35 09/09/18 04:35 Labs: Short CBC 09/09/18 Range/Units 04:35 WBC 5.4 (4.3-11.1) K/mcL Hgb 7.4 L (12.9-16.9) g/dL Hct 24.4 L (37.5-50.1) % Plt Count 248 (140-400) K/mcL BMP 09/09/18 04:35 Sodium 131 L Potassium 5.0 Chloride 94 L Carbon Dioxide 26 BUN 54 H Creatinine 5.02 H Glucose 227 H Calcium 8.1 L - ABG Interpretation ABG results: ABG ABG pH 7.23 pH Units (7.32-7.45) L 09/06/18 12:23 ABG pCO2 67 mmHg (35-45) H 09/06/18 12:23 ABG pO2 72 mmHg (85-104) L 09/06/18 12:23 ABG O2 Saturation 90 % (95-98) L 09/06/18 12:23 PT/INR, D-dimer PT 11.9 Seconds (9.4-12.1) 09/03/18 19:02 - Attending Attestation I saw evaluated and examined this patient and my medical decision-making was reviewed with the Resident Physician, Nya Marsh. I agree with the documented findings, disposition and treatment plan as described except to any changes set forth below. We independently had [id number] contact with the patient. Evaluated patient during hemodialysis. Patient denies any new complaints at this time. Tolerating dialysis well. No fevers reported overnight. Denies any shortness of breath. No abdominal pain reported. On tube feeds currently. On examination, patient is awake and alert. Tracheostomy in place. Patient connected to ventilator at this time. Abdomen is soft, nontender. Coarse breath sounds bilaterally. S1 and S2 are normal. Enterococcus bacteremia: 1 set of blood culture positive for Enterococcus faecalis. Remaining blood cultures have been negative. We will consult infectious disease for recommendations. Right groin abscess: Status post surgery and drainage. Surgery following. Wound cultures positive for Proteus and 2 other gram-negative rods. Awaiting final culture results. Acute on chronic respiratory failure status post cardiac arrest during this admission: Patient transferred out of ICU. Has been transferred to ICU after developing cardiac arrest related to mucous plugging and respiratory failure. In is good. We will continue supportive care. Continue O2 supplementation and ventilator support. Dysphagia: On tube feeds currently. Evaluated by speech therapy and recommended mechanically altered diet and thin liquids today. We will follow recommendations. End-stage renal disease on hemodialysis: Continue dialysis per nephrology recommendations. Pneumonia: Currently patient is on Zosyn and vancomycin. Will stop vancomycin at this time. Anemia: Hemoglobin stable. Likely due to end-stage renal disease. We will continue to monitor closely. DVT prophylaxis with subcutaneous heparin. High risk for complications. <Nya Marsh - Last Filed: 09/09/18 11:32> (5) Anemia Qualifiers: Anemia type: due to chronic kidney disease Chronic kidney disease stage: on chronic dialysis Qualified Code(s): N18.6 - End stage renal disease; D63.1 - Anemia in chronic kidney disease; Z99.2 - Dependence on renal dialysis (7) Pneumonia Qualifiers: Pneumonia type: due to unspecified organism Laterality: bilateral Lung location: lower lobe of lung Qualified Code(s): J18.1 - Lobar pneumonia, unspecified organism <Hesham Israel - Last Filed: 09/09/18 12:52> (3) Anemia Qualifiers: Anemia type: due to chronic kidney disease Chronic kidney disease stage: on chronic dialysis Qualified Code(s): N18.6 - End stage renal disease; D63.1 - Anemia in chronic kidney disease; Z99.2 - Dependence on renal dialysis (6) Pneumonia Qualifiers: Pneumonia type: due to unspecified organism Laterality: bilateral Lung location: lower lobe of lung Qualified Code(s): J18.1 - Lobar pneumonia, unspecified organism
[2018-09-09] MEDS: Gabapentin 100 MG CAPSULE PO SCH ×2 (09:31→21:44)
[2018-09-09] MEDS: Sucralfate 1 GM TABLET PO SCH ×4 (09:31→21:44)
[2018-09-09] MEDS: *HR* Digoxin 0.125 MG TABLET PO SCH ×2 (09:31→19:10)
--- NOTE | 2018-09-09 09:31 | Palliative Progress Note ---
Date of Encounter: 09/09/18 Time of Encounter: 08:50 - Assessment and plan (1) Abscess of right groin Current Visit: Yes Status: Acute Assessment and plan: Surgery following; appreciate their recommendations. (2) Acute respiratory failure with hypoxia and hypercapnia Current Visit: Yes Status: Acute Assessment and plan: Oxygen saturation 95%, ventilator support in place. (3) Cardiac arrest Current Visit: Yes Status: Acute (4) ESRD (end stage renal disease) on dialysis Current Visit: Yes Status: Acute Assessment and plan: Nephrology consulted; appreciate recommendations and dialysis management. (5) Goals of care, counseling/discussion Current Visit: Yes Status: Acute Assessment and plan: Spoke with patient regarding goals of care. Plan to return to [place] with Ventilator at night. Nephro tube feeding tolerated well. Confirmed CODE STATUS desires. Patient continues to desire DNRCCA CODE STATUS. Discharge plan and CODE status in place. Palliative care will sign off. (6) Chest pain in adult Current Visit: Yes Status: Acute Assessment and plan: Patient has Oxycodone ordered for pain control; continue PRN. - Time Spent With Patient Total time spent is greater than 50% in coordination of care (as documented) at patient's floor/unit and/or counseling patient: less than 15 minutes - Subjective Interval history: Patient sitting up in bed upon arrival for assessment. Ventilator support in place to trach. Patient reports he had just finished eating his breakfast; tube feeding infusing. Patient denies pain during assessment. Patient has Oxycodone ordered for pain, 5 doses received in the last 72 hours and 0 doses in the last 24. Patient denies anxiety, dyspnea, nausea, and vomiting. Patient alert and oriented at this time. No family present at bedside. - Constitutional Vitals: Abnormal lab results RBC 2.67 M/mcL (4.19-5.50) L 09/09/18 04:35 Hgb 7.4 g/dL (12.9-16.9) L 09/09/18 04:35 Hct 24.4 % (37.5-50.1) L 09/09/18 04:35 MCH 27.7 pg (28.0-33.3) L 09/09/18 04:35 MCHC 30.3 g/dL (31.6-35.5) L 09/09/18 04:35 RDW 19.1 % (11.5-14.5) H 09/09/18 04:35 Immature Gran % 4.3 % (0-4) H 09/06/18 10:57 Lymphocytes # 0.3 K/mcL (0.6-4.6) L 09/06/18 10:57 Nucleated RBCs/100 WBC 0.2 /100 WBC (0) H 09/06/18 10:57 ABG pH 7.23 pH Units (7.32-7.45) L 09/06/18 12:23 ABG pCO2 67 mmHg (35-45) H 09/06/18 12:23 ABG pO2 72 mmHg (85-104) L 09/06/18 12:23 ABG HCO3 28 mEq/L (21-27) H 09/06/18 12:23 ABG Total CO2 30 mEq/L (20-26) H 09/06/18 12:23 ABG O2 Saturation 90 % (95-98) L 09/06/18 12:23 Sodium 131 mEq/L (136-145) L 09/09/18 04:35 Chloride 94 mEq/L (98-107) L 09/09/18 04:35 BUN 54 mg/dL (8-23) H 09/09/18 04:35 Creatinine 5.02 mg/dL (0.70-1.30) H 09/09/18 04:35 Est GFR ( Amer) 14 (> 60) L 09/09/18 04:35 Est GFR (Non-Af Amer) 11 (> 60) L 09/09/18 04:35 Glucose 227 mg/dL (70-105) H 09/09/18 04:35 POC Glucose 269 mg/dL (70-99) H 09/09/18 05:21 Hemoglobin A1c 8.2 % (-5.6) H 09/04/18 05:52 Calcium 8.1 mg/dL (8.6-10.3) L 09/09/18 04:35 Venous Ioniz Calcium 0.98 mmol/L (1.15-1.35) L 09/06/18 11:09 Phosphorus 9.3 mg/dL (2.7-4.5) H 09/06/18 10:57 Magnesium 3.1 mg/dL (1.6-2.6) H 09/06/18 10:57 AST 70 Units/L (13-39) H 09/06/18 10:57 ALT 68 Units/L (7-52) H 09/06/18 10:57 Troponin I 0.57 ng/mL (< 0.04) H* 09/06/18 22:51 Serum Total Protein 6.1 g/dL (6.4-8.9) L 09/06/18 10:57 Albumin 3.0 g/dL (3.5-5.7) L 09/06/18 10:57 Albumin/Globulin Ratio 1.0 (1.1-2.2) L 09/06/18 10:57 Enterococcus sp PCR DETECTED (Not Detect) A 09/06/18 16:26 General appearance: Present: cooperative, no acute distress - Head Head exam: Present: atraumatic, normal inspection - Eye Eye exam: Absent: periorbital swelling, periorbital tenderness Pupils: Present: normal accommodation - ENT ENT exam: Present: mucous membranes dry, normal external ear exam - Neck Neck exam: Present: full ROM, normal inspection - Respiratory Respiratory exam: Present: CTAB. Absent: accessory muscle use, respiratory distress - Cardiovascular Cardiovascular exam: Present: +S1, +S2 - GI/Abdominal GI/Abdominal exam: Present: normal bowel sounds, soft. Absent: tenderness - Rectal Rectal exam: Present: deferred - Extremities Exam Extremities exam: Present: pedal edema (1+) - Back Exam Back exam: Present: full ROM - Neurological Exam Neurological exam: Present: alert, strengths equal and symetr throughout. Absent: altered - Psychiatric Psychiatric exam: Present: flat affect - Skin Skin exam: Present: intact, warm Palliative Quality Palliative Quality: Screen for Code Status: Yes, Screen for Goals of Care: Yes, Screen for Pain: Yes, If Pain Regimen Started, Initiate Bowel Regimen: NA, Screen for Nausea/Vomitting: Yes Code Status: 09/03/18 20:54 Resuscitation Status: Active [RES] Routine Comment: Resuscitation Status: Full Code 09/06/18 15:08 DNR [Resuscitation Status: Active] [RES] Routine Comment: State form completed. Resuscitation Status: DNR-Comfort Care-Arrest - Labs CBC & Chem 7: 09/09/18 04:35 09/09/18 04:35 Labs: Laboratory Results - last 24 hr 1209/08/18 09/08/18 07:24 11:13 16:50 WBC RBC Hgb Hct MCV MCH MCHC RDW Plt Count MPV Sodium Potassium Chloride Carbon Dioxide BUN Creatinine Est GFR ( Amer) Est GFR (Non-Af Amer) BUN/Creatinine Ratio Glucose POC Glucose 223 H 234 H 219 H Calculated Osmolality Calcium Random Vancomycin 09/08/18 09/09/18 09/09/18 20:02 00:17 04:35 WBC 5.4 RBC 2.67 L Hgb 7.4 L Hct 24.4 L MCV 91.4 MCH 27.7 L MCHC 30.3 L RDW 19.1 H Plt Count 248 MPV 10.0 Sodium Potassium Chloride Carbon Dioxide BUN Creatinine Est GFR ( Amer) Est GFR (Non-Af Amer) BUN/Creatinine Ratio Glucose POC Glucose 242 H 226 H Calculated Osmolality Calcium Random Vancomycin 09/09/18 09/09/18 09/09/18 04:35 04:35 05:21 WBC RBC Hgb Hct MCV MCH MCHC RDW Plt Count MPV Sodium 131 L Potassium 5.0 Chloride 94 L Carbon Dioxide 26 BUN 54 H Creatinine 5.02 H Est GFR ( Amer) 14 L Est GFR (Non-Af Amer) 11 L BUN/Creatinine Ratio 11 Glucose 227 H POC Glucose 269 H Calculated Osmolality 294 Calcium 8.1 L Random Vancomycin 19 - Impressions Impressions Chest X-Ray 09/08/18 08:04 IMPRESSION: Stable acute congestive heart failure with mild effusions and lung base consolidation. D/ / 09/08/2018 09:50:47 Ramin Jones MD / cyndee Interpreting Provider: Ramin Jones MD - ABG Interpretation ABG results: ABG ABG pH 7.23 pH Units (7.32-7.45) L 09/06/18 12:23 ABG pCO2 67 mmHg (35-45) H 09/06/18 12:23 ABG pO2 72 mmHg (85-104) L 09/06/18 12:23 ABG O2 Saturation 90 % (95-98) L 09/06/18 12:23 PT/INR, D-dimer PT 11.9 Seconds (9.4-12.1) 09/03/18 19:02 Palliative Scale - Palliative Performance Scale How ambulatory is this patient?: Mainly in bed What is patient's level of activity and evidence of disease?: Unable to do any work, Extensive disease How much self-care assistance does patient require?: Total care How much oral intake does the patient have?: Normal or reduced What is this patient's level of consciousness?: Full or confusion Palliative Performance Score: 30 % Consult Discharge Plan - Plan Referrals: NONE,PCP [Primary Care Provider] - (Patient is from [facility])
[2018-09-09] MEDS: Insulin LISPRO 300 UNITS/3 ML VIAL SQ SCH ×4 (09:34→21:47)
[2018-09-09] MEDS: Aspirin Enteric Coated 81 MG Tablet PO SCH (09:34)
[2018-09-09] MEDS: hydrALAZINE 10 MG TABLET PO SCH ×3 (09:35→21:44)
[2018-09-09] MEDS: OXYCODONE Oral CONC 10 MG/0.5 ML ORAL.SYG SL PRN ×2 (09:37→19:44)
--- NOTE | 2018-09-09 09:41 | General Surgery Progress Note ---
Date of Encounter: 09/09/18 Time of Encounter: 09:39 - Assessment and Plan (1) Abscess of right groin Current Visit: Yes Status: Acute 68M with multiple comorbidities with chronic R groin wound/abscess; POD #4 s/p excisional debridement; mucous plugging, cardiac arrest, CPR, ROSC; diet as tolerated in AM home meds pulm toilet TF at night per home regimen wet to dry dressing to wound with 0.25% dakin's solution okay to come off vent okay to return to facility after dialysis okay for wound vac appreciate recs from consults Subjective Patient reports: no new complaints, feels better, afebrile Objective Vital Signs - Last 8 Hours Temp Pulse Resp BP Pulse Ox 09/09/18 08:15 97.8 F 82 16 146/82 95 09/09/18 05:20 97.4 F L 74 16 151/85 95 09/09/18 04:26 8 98 Intake and Output 09/08/18 09/09/18 09/09/18 23:59 07:59 15:59 Intake Total 150 / 150 0 / 0 480 / 480 Output Total 0 / 0 Balance 150 / 150 0 / 0 480 / 480 Intake: IV Fluids 100 / 100 Zosyn 3.375 GM In 0.9 % Sodium 100 / 100 Chloride (Mini-Bag +) 100 ML @ 25 mls/hr IVPB Q12H [facility] Rx#: [id number] Oral 0 / 0 480 / 480 Free Water Intake Amount 50 / 50 Output: Urine 0 / 0 Other: Meal Breakfast Percent of Meal Consumed 50% Weight 98.2 kg Blood Glucose* 242 269 281 Patient Weight 09/09/18 23:59 Weight 98.2 kg - General physical appearance no distress - Respiratory normal expansion, normal respiratory effort - Cardiovascular Cardiovascular exam: Present: RRR - Abdomen Abdomen: Present: soft, non tender - Incision Incision: Present: open (clean bases) - Neurologic CN 2-12 grossly intact - Labs 09/09/18 04:35 09/09/18 04:35 Diabetes panel 09/09/18 Range/Units 04:35 Sodium 131 L (136-145) mEq/L Potassium 5.0 (3.5-5.1) mEq/L Chloride 94 L (98-107) mEq/L Carbon Dioxide 26 (23-29) mEq/L BUN 54 H (8-23) mg/dL Creatinine 5.02 H (0.70-1.30) mg/dL Glucose 227 H (70-105) mg/dL Calcium 8.1 L (8.6-10.3) mg/dL Calcium panel 09/09/18 Range/Units 04:35 Calcium 8.1 L (8.6-10.3) mg/dL Pituitary panel 09/09/18 Range/Units 04:35 Sodium 131 L (136-145) mEq/L Potassium 5.0 (3.5-5.1) mEq/L Chloride 94 L (98-107) mEq/L Carbon Dioxide 26 (23-29) mEq/L BUN 54 H (8-23) mg/dL Creatinine 5.02 H (0.70-1.30) mg/dL Glucose 227 H (70-105) mg/dL Calcium 8.1 L (8.6-10.3) mg/dL Adrenal panel 09/09/18 Range/Units 04:35 Sodium 131 L (136-145) mEq/L Potassium 5.0 (3.5-5.1) mEq/L Chloride 94 L (98-107) mEq/L Carbon Dioxide 26 (23-29) mEq/L BUN 54 H (8-23) mg/dL Creatinine 5.02 H (0.70-1.30) mg/dL Glucose 227 H (70-105) mg/dL Calcium 8.1 L (8.6-10.3) mg/dL Consult Discharge Plan - Plan Referrals: NONE,PCP [Primary Care Provider] - (Patient is from [facility])
[2018-09-09] MEDS ORDERED: 0.9 % Sodium Chloride 2,000 ML ONE (10:05)
[2018-09-09] MEDS: Budesonide/Formoterol 160/4.5 1 PUFF INH IH SCH ×2 (10:34→20:22)
--- NOTE | 2018-09-09 11:56 | Nephrology Progress Note ---
Addendum entered and electronically signed by Venu Sevilla MD 09/09/18 22:38: I examined this patient and discussed the medical decision-making with SOPHIA Hayden. I agree with the documented findings, disposition and treatment plan as described except to the extent set forth below. Patient seen on dialysis. Original Note: Date of Encounter: 09/09/18 Time of Encounter: 11:54 - Assessment and Plan (1) ESRD (end stage renal disease) on dialysis Current Visit: Yes Status: Acute HD in progress for today. Continue fluid restriction Continue renal diet when able Avoid nephrotoxins and renal dose. (2) Abscess of right groin Current Visit: Yes Status: Acute Per surgery. (3) Dyspnea Current Visit: Yes Status: Acute improved Qualifiers: Dyspnea type: unspecified Qualified Code(s): R06.00 - Dyspnea, unspecified (4) Anemia Current Visit: Yes Status: Acute Goal Hgb 10-11. Hgb is 7.4 today. Will defer transfusion parameters to primary team Qualifiers: Anemia type: due to chronic kidney disease Chronic kidney disease stage: on chronic dialysis Qualified Code(s): N18.6 - End stage renal disease; D63.1 - Anemia in chronic kidney disease; Z99.2 - Dependence on renal dialysis Subjective Principal diagnosis: Cardiac Arrest Interval history: Pt seen and examined during HD, tolerating well. Objective - Vital Signs Vital signs: Vital Signs Temp Pulse Resp BP Pulse Ox 09/09/18 08:15 97.8 F 82 16 146/82 95 09/09/18 07:50 16 146/82 95 09/09/18 05:20 97.4 F L 74 16 151/85 95 09/09/18 04:26 8 98 09/09/18 00:21 99.2 F 79 18 140/76 96 09/08/18 23:53 12 97 09/08/18 22:17 21 98 09/08/18 18:50 99.1 F 81 18 142/78 98 09/08/18 16:33 99.4 F 73 23 134/71 95 09/08/18 15:49 73 23 137/75 97 09/08/18 12:00 66 12 134/61 90 Intake and Output 09/08/18 09/09/18 09/09/18 23:59 07:59 15:59 Intake Total 150 / 150 0 / 0 480 / 480 Output Total 0 / 0 Balance 150 / 150 0 / 0 480 / 480 Intake: IV Fluids 100 / 100 Zosyn 3.375 GM In 0.9 % Sodium 100 / 100 Chloride (Mini-Bag +) 100 ML @ 25 mls/hr IVPB Q12H [facility] Rx#: [id number] Oral 0 / 0 480 / 480 Free Water Intake Amount 50 / 50 Output: Urine 0 / 0 Other: Meal Breakfast Percent of Meal Consumed 50% Weight 98.2 kg Blood Glucose* 242 269 205 Patient Weight 09/09/18 23:59 Weight 98.2 kg - General Appearance General appearance: Present: well-developed, well-nourished EENT: Present: ATNC, hearing intact, vision intact Neck: Present: supple Respiratory: Present: clear Cardiology: Present: edema (Trace bilat lower extremity edema.), normal S1, normal S2 Dialysis Vascular Access: Venous Catheter (Tunneled Line.) Gastrointestinal: Present: normoactive bowel sounds, no tenderness, no guarding Integumentary: Present: no rash, warm and dry Neurologic: Present: alert and oriented x3 Psychiatric: Present: mood/affect appropriate, cooperative - Lab 09/09/18 04:35 09/09/18 04:35 Most recent lab results ABG pH 7.23 pH Units (7.32-7.45) L 09/06/18 12:23 ABG pCO2 67 mmHg (35-45) H 09/06/18 12:23 ABG pO2 72 mmHg (85-104) L 09/06/18 12:23 ABG HCO3 28 mEq/L (21-27) H 09/06/18 12:23 ABG O2 Saturation 90 % (95-98) L 09/06/18 12:23 Calcium 8.1 mg/dL (8.6-10.3) L 09/09/18 04:35 Phosphorus 9.3 mg/dL (2.7-4.5) H 09/06/18 10:57 Magnesium 3.1 mg/dL (1.6-2.6) H 09/06/18 10:57 Consult Discharge Plan - Plan Referrals: NONE,PCP [Primary Care Provider] - (Patient is from [facility])
--- NOTE | 2018-09-09 12:44 | Electrocardiograph Report ---
[address] [address] Test Date: 2018-09-06 Pat Name: Cedrick Sanon Department: 112 Room: 2N09 Gender: M [employer]: : [id number] Requested By: Nya Marsh Order Number: [id number] Reading MD: Caity Burleson Measurements Intervals [place] Rate: 67 P: -49 DE: 164 QRS: 35 QRSD: 117 T: 0 QT: 334 QTc: 350 Interpretive Statements SINUS RHYTHM WITH MARKED SINUS ARRHYTHMIA ST T abnormalities, consider ischemia Electronically Signed On 09-09-2018 12:43:02 EST by Caity Burleson
[2018-09-09] MEDS: Ipratropium/Albuterol Neb 3 ML IH SCH ×4 (14:14→23:28)
--- NOTE | 2018-09-09 14:21 | Event Note ---
Date of Encounter: 09/09/18 Time of Encounter: 14:20 Plan were made for d/c today. Noted consult to ID for positive blood cultures. Will plan for d.c. 09/10/2018 Continue current wound care orders in the interim. Wound vac will be placed per [facility].
[2018-09-09] MEDS: 0.9 % Sodium Chloride 1,000 ML IVC SCH (21:46)
[2018-09-09] MEDS: Melatonin 3 MG TABLET PO SCH (21:47)
[2018-09-10] MEDS: Ipratropium/Albuterol Neb 3 ML IH SCH ×6 (04:08→23:11)
[2018-09-10 04:46] LABS: Hematocrit 25.7 % (37.5-50.1); Hemoglobin 7.6 g/dL (12.9-16.9); Immature Granulocytes % 0.5 % (0-4); Lymphocytes # 0.1 K/mcL (0.6-4.6); Lymphocytes % 1.6 %; Mean Corpuscular HGB Conc 29.6 g/dL (31.6-35.5); Mean Corpuscular Hemoglobin 27.4 pg (28.0-33.3); Mean Corpuscular Volume 92.8 fL (83.0-100.0); Mean Platelet Volume 10.3 fL (9.4-12.4); Monocytes # 0.6 K/mcL (0.0-1.3); Monocytes % 7.5 %; Neutrophils # 6.7 K/mcL (1.6-8.9); Platelet Count 271 K/mcL (140-400); Red Blood Count 2.77 M/mcL (4.19-5.50); Red Cell Distribution Width 18.9 % (11.5-14.5); Segmented Neutrophils % 90.4 %
[2018-09-10 05:05] LABS: Potassium 4.6 mEq/L (3.5-5.1)
[2018-09-10 05:26] LABS: Platelet Estimate Normal (Normal)
[2018-09-10] MEDS: *HR* Heparin 5,000 UNIT/ML VIAL SQ SCH ×2 (05:38→17:18)
[2018-09-10] MEDS: Piperacillin/Tazobactam 3.375 GM in 0.9 % Sodium Chloride Mini Bag 100 ML IVPB SCH (05:38)
[2018-09-10] MEDS: MethylPREDNISolone 40 MG/ML VIAL IVP SCH (05:38)
[2018-09-10] MEDS: OXYCODONE Oral CONC 10 MG/0.5 ML ORAL.SYG SL PRN ×3 (05:49→16:33)
[2018-09-10] MEDS: Budesonide/Formoterol 160/4.5 1 PUFF INH IH SCH ×2 (07:33→20:31)
--- NOTE | 2018-09-10 07:44 | Internal Med Progress Note ---
<Nya Marsh - Last Filed: 09/10/18 07:42> Hospitalist Progress Note - Encounter Date of Encounter: 09/10/18 Time of Encounter: 07:42 - Subjective Interval History: 68-year-old male evaluated at bedside. He denies nausea, vomiting, diarrhea, fever, chills, chest pain, shortness of breath. He denies any new complaints today. He was laying in bed getting breathing treatment. - Exam Vitals: Temp Pulse Resp BP Pulse Ox 97.9 F 80 16 140/74 98 09/10/18 03:24 09/10/18 03:24 09/10/18 04:08 09/10/18 03:24 09/10/18 04:08 Exam: General: alert and oriented 3, no acute distress, vital signs stable. neck: tracheostomy in place. Lungs: coarse breath sounds heard throughout. CV: RRR, no murmurs, rubs, gallops. S1, S2 noted. Abdomen: soft, non distended, non tender, bowel sounds present. PEG tube in place. no organomegaly. Extremities: +1 bilateral lower extremity pitting edema. no cyanosis or clubbing noted. SKin: no rashes noted. RIght groin packed with dressing. no purulent discharge noted. - Assessment and Plan (1) Bacteremia due to Enterococcus Current Visit: Yes Status: Acute Assessment and Plan: 09/06: blood culture positive for enterococcous faecalis, S: ampicillin, cipro, daptomycin, linezolid, vancomycin 09/05: wound culture positive for proteus, Gram negative rods x2 S: unasyn, cipro, ertapenem, gentamicin, Imipenem, levaquin, zosyn Plan: repeat blood cultures x2 no growth to date consult to ID regarding senior care ABX. patiloran received 5 days vancomycin Zosyn day 6 discharge to [facility] per primary team. (2) Acute respiratory failure with hypoxia and hypercapnia Current Visit: Yes Status: Acute Assessment and Plan: Status post cardiac arrest on 09/06, likely secondary to mucus plugging. Patient has been seen and managed by ICU team. Plan: continue antibiotic regimen, scheduled DuoNebs, steroids. (3) COPD exacerbation Current Visit: Yes Status: Acute Assessment and Plan: Likely secondary to mucus plugging, pneumonia. 09/08 chest x-ray showed stable CHF with mild effusions the lung base. Plan: scheduled duoNebs, ABX as above discontinued solumedrol today. started PO prednisone. This can be tapered upon discharge (4) Abscess of right groin Current Visit: Yes Status: Acute Assessment and Plan: Patient admitted for right groin abscess. 09/05-he received I&D of right groin with debridement wound culture growing proteus and two gram negative rods. Plan: wound care and dressings per surgery team and wound care team. (5) ESRD (end stage renal disease) on dialysis Current Visit: Yes Status: Acute Assessment and Plan: Dialysis per nephrology team. (6) Anemia Current Visit: Yes Status: Acute Assessment and Plan: History of chronic anemia continue to monitor (7) Pneumonia Current Visit: Yes Status: Acute Assessment and Plan: Plan as above (8) Goals of care, counseling/discussion Current Visit: Yes Status: Acute Assessment and Plan: Patient seen and evaluated by palliative care team, with extensive goals of care conversations. Plan is to return to [place] [facility] [place], code status changed to DNRCCA. (9) DVT prophylaxis Current Visit: Yes Status: Acute Assessment and Plan: Heparin SQ - Time Spent with Patient Total time spent is greater than 50% in coordination of care (as documented) at patient's floor/unit and/or counseling patient: Internal Medicine: Result - Labs CBC & Chem 7: 09/10/18 04:01 09/10/18 04:01 Labs: Short CBC 09/10/18 Range/Units 04:01 WBC 7.4 (4.3-11.1) K/mcL Hgb 7.6 L (12.9-16.9) g/dL Hct 25.7 L (37.5-50.1) % Plt Count 271 (140-400) K/mcL Neutrophils # 6.7 (1.6-8.9) K/mcL BMP 09/10/18 04:01 Sodium 134 L Potassium 4.6 Chloride 97 L Carbon Dioxide 28 BUN 34 H Creatinine 3.56 H Glucose 202 H Calcium 8.0 L - ABG Interpretation ABG results: ABG ABG pH 7.23 pH Units (7.32-7.45) L 09/06/18 12:23 ABG pCO2 67 mmHg (35-45) H 09/06/18 12:23 ABG pO2 72 mmHg (85-104) L 09/06/18 12:23 ABG O2 Saturation 90 % (95-98) L 09/06/18 12:23 PT/INR, D-dimer PT 11.9 Seconds (9.4-12.1) 09/03/18 19:02 Consult Discharge Plan - Plan Referrals: NONE,PCP [Primary Care Provider] - (Patient is from [facility]) <CrystalkamalaMahesh Janayfabrice - Last Filed: 09/10/18 23:16> Hospitalist Progress Note - Encounter Date of Encounter: 09/10/18 - Exam Vitals: Temp Pulse Resp BP Pulse Ox 97.9 F 72 17 150/74 97 09/10/18 18:40 09/10/18 18:40 09/10/18 20:31 09/10/18 18:40 09/10/18 23:11 - Assessment and Plan (1) Abscess of right groin Current Visit: Yes Status: Acute (2) ESRD (end stage renal disease) on dialysis Current Visit: Yes Status: Acute (3) Anemia Current Visit: Yes Status: Acute (4) Acute respiratory failure with hypoxia and hypercapnia Current Visit: Yes Status: Acute (5) Goals of care, counseling/discussion Current Visit: Yes Status: Acute (6) Pneumonia Current Visit: Yes Status: Acute (7) COPD exacerbation Current Visit: Yes Status: Acute (8) Bacteremia due to Enterococcus Current Visit: Yes Status: Acute (9) DVT prophylaxis Current Visit: Yes Status: Acute - Time Spent with Patient Total time spent is greater than 50% in coordination of care (as documented) at patient's floor/unit and/or counseling patient: Internal Medicine: Result - Labs CBC & Chem 7: 09/10/18 04:01 09/10/18 04:01 Labs: Short CBC 09/10/18 Range/Units 04:01 WBC 7.4 (4.3-11.1) K/mcL Hgb 7.6 L (12.9-16.9) g/dL Hct 25.7 L (37.5-50.1) % Plt Count 271 (140-400) K/mcL Neutrophils # 6.7 (1.6-8.9) K/mcL BMP 09/10/18 04:01 Sodium 134 L Potassium 4.6 Chloride 97 L Carbon Dioxide 28 BUN 34 H Creatinine 3.56 H Glucose 202 H Calcium 8.0 L - ABG Interpretation ABG results: ABG ABG pH 7.23 pH Units (7.32-7.45) L 09/06/18 12:23 ABG pCO2 67 mmHg (35-45) H 09/06/18 12:23 ABG pO2 72 mmHg (85-104) L 09/06/18 12:23 ABG O2 Saturation 90 % (95-98) L 09/06/18 12:23 PT/INR, D-dimer PT 11.9 Seconds (9.4-12.1) 09/03/18 19:02 - Attending Attestation I saw evaluated and examined this patient and my medical decision-making was reviewed with the Resident Physician, Nya Marsh. I agree with the documented findings, disposition and treatment plan as described except to any changes set forth below. We independently had [id number] contact with the patient. <Nya Marsh - Last Filed: 09/10/18 07:42> (6) Anemia Qualifiers: Anemia type: due to chronic kidney disease Chronic kidney disease stage: on chronic dialysis Qualified Code(s): N18.6 - End stage renal disease; D63.1 - Anemia in chronic kidney disease; Z99.2 - Dependence on renal dialysis (7) Pneumonia Qualifiers: Pneumonia type: due to unspecified organism Laterality: bilateral Lung location: lower lobe of lung Qualified Code(s): J18.1 - Lobar pneumonia, unspecified organism <Wiley Peterson - Last Filed: 09/10/18 23:16> (3) Anemia Qualifiers: Anemia type: due to chronic kidney disease Chronic kidney disease stage: on chronic dialysis Qualified Code(s): N18.6 - End stage renal disease; D63.1 - Anemia in chronic kidney disease; Z99.2 - Dependence on renal dialysis (6) Pneumonia Qualifiers: Pneumonia type: due to unspecified organism Laterality: bilateral Lung location: lower lobe of lung Qualified Code(s): J18.1 - Lobar pneumonia, unspecified organism
[2018-09-10] MEDS: Gabapentin 100 MG CAPSULE PO SCH ×2 (07:59→20:25)
[2018-09-10] MEDS: Aspirin Enteric Coated 81 MG Tablet PO SCH (07:59)
[2018-09-10] MEDS: Sucralfate 1 GM TABLET PO SCH ×4 (08:00→23:40)
[2018-09-10] MEDS: Insulin LISPRO 300 UNITS/3 ML VIAL SQ SCH ×4 (08:00→20:31)
[2018-09-10] MEDS: hydrALAZINE 10 MG TABLET PO SCH ×3 (08:00→20:24)
--- NOTE | 2018-09-10 10:02 | Infectious Disease Consult ---
Date of Encounter: 09/09/18 Time of Encounter: 09:51 Assessment and Plan (1) Bacteremia due to Enterococcus Status: Acute Assessment and plan: Source not clear. Only one out of 2 sets positive for Enterococcus faecalis ampicillin sensitive on 09/06/2018 Repeat cultures on 09/09/2018 no growth to date We will start ampicillin, as pharmacy to help us with the dosing. Duration of treatment 2 weeks if the cultures from 09/09/2018 are negative. If patient persistently continues to be bacteremic, consider a longer duration and consider a TTE to rule out endocarditis Discussed with the surgery team (2) Pneumonia Status: Acute Assessment and plan: Patient's on physical exam has diffuse rhonchi and crackles everywhere. Also has adventitious lung sounds. CT chest and chest x-ray suggestive of consolidation right lower lobe concerning for pneumonia Sputum cultures positive for multidrug resistant Acinetobacter baumanni and another gram-negative leif has not finalized We will do colistin plus levofloxacin until the next gram-negative leif is finalized Duration of treatment 2 weeks Qualifiers: Pneumonia type: due to unspecified organism Laterality: bilateral Lung location: lower lobe of lung Qualified Code(s): J18.1 - Lobar pneumonia, unspecified organism (3) Abscess of right groin Status: Acute Assessment and plan: Patient had a angioplasty going through the right grown followed by hematoma th at has transformed to an abscess of months ago and has been persistently draining. Status post incision and drainage of the right groin abscess 09/05/2018 Intra-Op cultures positive for Escherichia coli ESBL, Acinetobacter baumanni multidrug resistant organism, Proteus mirabilis. Patient has been on vancomycin and Zosyn since Based on the culture results, I will DC the Zosyn, start the patient on levofloxacin plus colistin. We will dose adjust based on the creatinine clearance and end-stage renal disease. We will ask pharmacy to help. Duration of treatment 2 weeks (4) Diabetes mellitus Status: Chronic Qualifiers: Diabetes mellitus type: type 2 Diabetes mellitus penitentiary insulin use: without penitentiary use Diabetes mellitus complication status: with unspecified complications Qualified Code(s): E11.8 - Type 2 diabetes mellitus with uns pecified complications (5) COPD (chronic obstructive pulmonary disease) Status: Chronic Qualifiers: COPD type: unspecified COPD Qualified Code(s): J44.9 - Chronic obstructive pulmonary disease, unspecified (6) ESRD (end stage renal disease) on dialysis Status: Acute Infectious Disease HPI - Data of Consult Patient: new to practice Consult date: 09/09/18 Requesting Physician: Vinh Azul MD Primary Care Provider: PCP NONE - Consult Narrative Reason for consult: Enterococcus bacteremia. Need recommendations for antibiotics upon dischar History of present illness: Mr. Sanon is a 68 year old male Patient is a 68-year-old gentleman who presented to [place] on 09/03/2018 for an abscess of the right groin. We are consulted on 09/09/2018 for antibiotics recommendations. Patient is 68-year-old gentleman with extensive past medical history mentioned below including coronary artery disease with a history of CABG and apparently had recent angioplasty going through the right groin, coronary artery disease on dialysis, chronic respiratory failure with a trach was transferred from nursing facility for right groin abscess that has been present for several weeks after a heart catheter. At that time on admission patient did not have any constitutional symptoms. No fevers no chills no night sweats. Patient was admitted to surgery service. Since admission, patient has been afebrile with MAXIMUM TEMPERATURE of 99.9, tachycardic and had a few tachypnea episodes. Presenting labs revealed a WBC of 10.4 with normal differential no bands. Patient also had a wound culture from the right groin that is growing Proteus mirabilis, Escherichia coli ESBL and Acinetobacter baumanni multidrug resistant organism that appears to be duong resi stant. Blood cultures on 09/06/2008 T1 out of 2 sets grew Enterococcus faecalis that was ampicillin sensitive. Sputum culture also grew Acetobacter baumanni multidrug resistant organism and another gram-negative leif that is still pending. Repeat blood cultures on 09/09/2018 are no growth to date. Chest x- ray on 09/08/2018 revealed stable acute congestive heart failure with mild effusion in the lung base consolidation. CT chest on 09/06/2018 revealed no acute pulmonary artery embolism, emphysema with left lower lobe pneumonia and small left pleural effusion. Dependent atelectasis versus infiltrate right lower lobe and a small ascites. Currently patient is lying in bed appears comfortable. Just came back from dialysis. Patient denies any chest pain. No shortness of breath. No diarrhea. No urinary symptoms. CC: Vinh Azul MD Past Med Surg Social Fam HX - Past Medical History Medical history: COPD, coronary artery disease, diabetes, GI bleed, hyperlipidemia, hypertension Additional medical history: CKD, Gout, psychosis, Resp. Failure, Vit. B deficient. Psychiatric history: anxiety - Past Surgical History Surgical History: coronary bypass (CABG), tracheostomy - Social History Smoking Status: Former smoker Smokeless Tobacco Status: Yes (patch) Alcohol use: none Drug use: none - Family History Father Adopted: No Family Member Ethnicity: Non- Living Status: Hx Family Cardiac Disorders: Yes Hx Family Respiratory Disorders: No Hx Family Cancer: No Hx Family GI Disorders: No Hx Family Endocrine Disorder: No Hx Family Neuromuscular Disorders: No Hx Family Neurologic Disorders: No Hx Family HEENT Disorders: No Hx Family Autoimmune Disorders: No Mother Living Status: Hx Family Cardiac Disorders: Yes Hx Family Respiratory Disorders: No Hx Family Cancer: Yes Hx Family GI Disorders: Yes Hx Family Endocrine Disorder: Yes Hx Family Neuromuscular Disorders: No Hx Family Neurologic Disorders: No Hx Family HEENT Disorders: No Hx Family Autoimmune Disorders: No Infectious Disease-CN:Meds RX: Ascorbate Calcium [Vitamin C] 500 mg PO DAILY 01/13/18 [History] RX: [place]-3/Dha/Epa/Fish Oil [Fish Oil [place]-3 EC 1,200 mg] 1 cap PO DAILY 01/13/18 [History] RX: Acetaminophen [Tylenol] 325 mg PO Q8HR PRN 05/01/18 [History] RX: Nitroglycerin [Nitrostat] 0.4 mg SL DAILY PRN 05/01/18 [History] Allopurinol [Zyloprim 100 MG] 100 mg PO DAILY 09/03/18 [History] Apixaban [Eliquis] 2.5 mg PO BID 09/03/18 [History] Aspirin [Lo-Dose Aspirin EC] 81 mg PO DAILY 09/03/18 [History] Atorvastatin Calcium [Lipitor] 80 mg PO DAILY 09/03/18 [History] Budesonide/Formoterol 160/4.5 [Symbicort 160/4.5] 2 puff IH BID 09/03/18 [History] Digoxin [Lanoxin] 0.125 mg PO Q48H 09/03/18 [History] Gabapentin [Neurontin] 100 mg PO BID 09/03/18 [History] GuaiFENesin ER [Mucinex] 600 mg PO BID 09/03/18 [History] Insulin Glargine [Lantus] 5 unit SQ DAILY 09/03/18 [History] Insulin Regular Human [HumuLIN R] 0 unit SQ ACHS 09/03/18 [History] Ipratropium/Albuterol Neb [Duoneb] 3 ml IH Q4HR PRN 09/03/18 [History] Lidocaine Patch [Lidoderm 5% patch] 1 each TP DAILY 09/03/18 [History] Lidocaine Patch [Lidoderm 5% patch] 1 each TP DAILY 09/03/18 [History] Lidocaine Patch [Lidoderm 5% patch] 1 each TP DAILY 09/03/18 [History] Pantoprazole Sodium [Protonix] 40 mg PO DAILY 09/03/18 [History] Quetiapine Fumarate [Seroquel] 50 mg PO HS 09/03/18 [History] RX: Isosorbide DInitrate [Isordil] 10 mg PO TIDAC 09/03/18 [History] RX: Melatonin 3 mg PO HS 09/03/18 [History] RX: Metoprolol [Lopressor] 12.5 mg PO BID 09/03/18 [History] RX: hydrALAZINE [HydrALAZINE] 10 mg PO Q8HR 09/03/18 [History] Renal Vitamin [Renal Caps Softgel] 1 mg PO DAILY 09/03/18 [History] Sevelamer Carbonate [Renvela] 2.4 gm PO TID 09/03/18 [History] Ammonium Lactate [Amlactin] 30 appl TP BID 09/04/18 [History] Hydrocortisone 2.5% CREAM [Cortaid] 1 appl TP BID PRN 09/04/18 [History] Ibuprofen [Motrin Ib] 400 mg PO Q6H PRN 09/04/18 [History] RX: Nicotine Patch [Nicoderm] 7 mg TD DAILY 09/04/18 [History] Sucralfate [Carafate] 1 gm PO Q6H 09/04/18 [History] methylPREDNISolone [Medrol] 4 mg PO DAILY 09/04/18 [History] Allergy/AdvReac Type Severity Reaction Status Date / Time No Known Allergies Allergy Verified 01/13/18 21:28 Review of systems: 10 point review of systems done, negative other for what mentioned in history of present illness. Exam - Constitutional Vitals: Temp Pulse Resp BP Pulse Ox 98.5 F 92 18 150/75 91 09/10/18 07:53 09/10/18 07:53 09/10/18 07:53 09/10/18 07:53 09/10/18 07:53 General appearance: cooperative, no febrile - Head Head exam: Present: atraumatic, normocephalic - Eye Eye exam: Present: EOMI, PERRL - ENT ENT exam: Present: mucous membranes dry - Neck Neck exam: Absent: meningismus Additional comments: Tracheostomy intact no drainage around that no erythema - Respiratory Additional comments: Course breath sounds bilaterally with diffuse rhonchi and adventitious breath sounds - Cardiovascular Cardiovascular exam: Present: RRR, +S1, +S2 - GI/Abdominal GI/Abdominal exam: Present: normal bowel sounds, soft. Absent: tenderness - Extremities Exam Extremities exam: Present: full ROM. Absent: joint swelling Additional comments: right groin wound open with no ertyeham no drainage. secondary closure. - Neurological Exam Neurological exam: Present: alert, oriented X3 - Psychiatric Psychiatric exam: Present: normal affect, normal mood - Skin Skin exam: Present: dry, normal color. Absent: rash Infectious Disease CN: Results - Labs CBC & Chem 7: 09/10/18 04:01 09/10/18 04:01 Cultures: Cultures 09/05/18 19:09 Wound Culture - Final Groin Proteus mirabilis Escherichia coli ESBL Acinetobacter baumannii MDRO 09/08/18 09:00 Sputum Culture - Preliminary Sputum Acinetobacter baumannii MDRO Gram Negative Leif#2 09/09/18 09:35 Blood Culture - Preliminary Peripheral Venipuncture Culture is incubating and being continuously monitored for growth. Final report to follow. 09/09/18 09:35 Blood Culture - Preliminary Peripheral Venipuncture Culture is incubating and being continuously monitored for growth. Final report to follow. 09/06/18 16:26 Blood Culture - Final Peripheral Venipuncture Enterococcus faecalis 09/06/18 16:26 Blood Culture - Preliminary Peripheral Venipuncture Culture is incubating and being continuously mo nitored for growth. Final report to follow. Serology: Serology 09/06/18 09/04/18 Range/Units 16:26 07:14 A. baumannii (PCR) Not Detected (Not Detect) Ceci albicans (PCR) Not Detected (Not Detect) C. glabrata (PCR) Not Detected (Not Detect) C. krusei (PCR) Not Detected (Not Detect) C. parapsilosis (PCR) Not Detected (Not Detect) C. tropicalis (PCR) Not Detected (Not Detect) Enterobacteriac sp PCR Not Detected (Not Detect) E. cloacae complex PCR Not Detected (Not Detect) Enterococcus sp PCR DETECTED A (Not Detect) E. coli (PCR) Not Detected (Not Detect) H. influenzae (PCR) Not Detected (Not Detect) Hep Bs Antigen Nonreactive (Nonreactive) Hep Bs Antibody 0.49 mIU/mL Klebsiella oxytoca PCR Not Detected (Not Detect) Klebsiella pneumoniae Not Detected (Not Detect) List. monocytogenes PCR Not Detected (Not Detect) N. meningitidis (PCR) Not Detected (Not Detect) Proteus species (PCR) Not Detected (Not Detect) Serratia marcescens PCR Not Detected (Not Detect) Staphylococcus sp PCR Not Detected (Not Detect) Staph aureus (PCR) Not Detected (Not Detect) mecA-Methicil Res Gene N/A (Not Detect) Streptococcus sp PCR Not Detected (Not Detect) Group A Strep DNA Not Detected (Not Detect) Group B Strep (PCR) Not Detected (Not Detect) Strep pneumoniae (PCR) Not Detected (Not Detect) P. aeruginosa (PCR) Not Detected (Not Detect) Conor/B-Vanco Res Genes Not Detected (Not Detect) KPC (blaKPC) Detect PCR N/A (Not Detect) Consult Discharge Plan - Plan Referrals: NONE,PCP [Primary Care Provider] - (Patient is from [facility])
[2018-09-10] MEDS: predniSONE 20 MG TABLET PO SCH (10:21)
--- NOTE | 2018-09-10 10:40 | Nephrology Progress Note ---
Addendum entered and electronically signed by Venu Sevilla MD 09/10/18 21:56: I examined this patient and discussed the medical decision-making with SOPHIA Hayden. I agree with the documented findings, disposition and treatment plan as described except to the extent set forth below. Original Note: Date of Encounter: 09/10/18 Time of Encounter: 10:35 - Assessment and Plan (1) ESRD (end stage renal disease) on dialysis Current Visit: Yes Status: Acute HD completed yesterday. Continue fluid restriction Continue renal diet when able Avoid nephrotoxins and renal dose. (2) Abscess of right groin Current Visit: Yes Status: Acute Per surgery. (3) Dyspnea Current Visit: Yes Status: Acute improved Qualifiers: Dyspnea type: unspecified Qualified Code(s): R06.00 - Dyspnea, unspecified (4) Anemia Current Visit: Yes Status: Acute Goal Hgb 10-11. Hgb is 7.6, today. Will defer transfusion parameters to primary team Qualifiers: Anemia type: due to chronic kidney disease Chronic kidney disease stage: on chronic dialysis Qualified Code(s): N18.6 - End stage renal disease; D63.1 - Anemia in chronic kidney disease; Z99.2 - Dependence on renal dialysis Subjective Principal diagnosis: abscess right groin Interval history: Pt seen and examined doing well. Resting with eyes closed. Objective - Vital Signs Vital signs: Vital Signs Temp Pulse Resp BP Pulse Ox 09/10/18 07:53 98.5 F 92 18 150/75 91 09/10/18 07:33 22 93 09/10/18 04:08 16 98 09/10/18 03:24 97.9 F 80 17 140/74 91 09/09/18 23:28 16 92 09/09/18 20:22 16 98 09/09/18 19:51 97.6 F 89 18 153/89 96 09/09/18 16:38 18 85 09/09/18 16:19 98.3 F 71 16 130/62 92 09/09/18 13:45 98.2 F 18 138/67 09/09/18 13:30 141/67 09/09/18 13:15 143/72 09/09/18 13:00 151/102 09/09/18 12:45 152/74 09/09/18 12:30 135/81 09/09/18 12:15 141/73 09/09/18 12:00 141/88 09/09/18 11:45 167/83 09/09/18 11:30 151/80 09/09/18 11:15 167/83 09/09/18 11:00 165/84 09/09/18 10:45 167/89 Intake and Output 09/09/18 09/10/18 09/10/18 23:59 07:59 15:59 Intake Total 250 / 250 100 / 100 240 / 240 Balance 250 / 250 100 / 100 240 / 240 Intake: IV Fluids 100 / 100 Zosyn 3.375 GM In 0.9 % Sodium 100 / 100 Chloride (Mini-Bag +) 100 ML @ 25 mls/hr IVPB Q12H [facility] Rx#: [id number] Oral 240 / 240 Free Water Intake Amount 150 / 150 100 / 100 Other: Meal Lunch Percent of Meal Consumed 95% Weight 99.2 kg Blood Glucose* 290 294 Patient Weight 09/10/18 23:59 Weight 99.2 kg - General Appearance General appearance: Present: well-developed, well-nourished EENT: Present: ATNC, hearing intact, vision intact Neck: Present: supple Respiratory: Present: clear, rhonchi Cardiology: Present: edema (Trace bilat lower extremitiy edema), normal S1, normal S2 Dialysis Vascular Access: Venous Catheter (Tunneled Line, DRSG C/D/I) Gastrointestinal: Present: normoactive bowel sounds, no tenderness, no guarding Integumentary: Present: no rash, warm and dry Neurologic: Present: alert and oriented x3 Psychiatric: Present: mood/affect appropriate, cooperative - Lab 09/10/18 04:01 09/10/18 04:01 Most recent lab results ABG pH 7.23 pH Units (7.32-7.45) L 09/06/18 12:23 ABG pCO2 67 mmHg (35-45) H 09/06/18 12:23 ABG pO2 72 mmHg (85-104) L 09/06/18 12:23 ABG HCO3 28 mEq/L (21-27) H 09/06/18 12:23 ABG O2 Saturation 90 % (95-98) L 09/06/18 12:23 Calcium 8.0 mg/dL (8.6-10.3) L 09/10/18 04:01 Phosphorus 9.3 mg/dL (2.7-4.5) H 09/06/18 10:57 Magnesium 3.1 mg/dL (1.6-2.6) H 09/06/18 10:57 Consult Discharge Plan - Plan Referrals: NONE,PCP [Primary Care Provider] - ([facility] is from [facility])
--- NOTE | 2018-09-10 12:23 | Event Note ---
Date of Encounter: 09/10/18 Time of Encounter: 12:21 care transferred to the hospitalist for primary service given his acute surgical issue resolved. Surgery appreciates their care for Mr. Sanon. Continue Wound care. Surgery will follow from a distance. IF he is not going to d/c on 09/11/2018, surgery will place wound vac at bedside (to be continued per ECF). He has a follow-up scheduled with Dr. Azul 09/24/2018 in wound care
[2018-09-10] MEDS ORDERED: SODIUM CHLORIDE 0.9% IVPB ONE (16:00)
[2018-09-10] MEDS ORDERED: COLISTIN IVPB ONE (16:00)
[2018-09-10] MEDS: Bisacodyl 10 MG RECTAL SUPPOSITORY RC PRN ×2 (16:33→20:25)
[2018-09-10] MEDS ORDERED: Levofloxacin 750 MG/150 ML 750 MG/150 ML BAG IVPB SCH (17:00)
[2018-09-10] MEDS ORDERED: Ampicillin 2 GM in 0.9 % Sodium Chloride Mini Bag 100 ML IVPB SCH (18:00)
[2018-09-10] MEDS: 0.9 % Sodium Chloride 1,000 ML IVC SCH (19:42)
[2018-09-10] MEDS: Melatonin 3 MG TABLET PO SCH (20:24)
--- NOTE | 2018-09-10 21:52 | Infectious Disease Progress No ---
Date of Encounter: 09/10/18 Time of Encounter: 21:50 - Assessment and Plan (1) Bacteremia due to Enterococcus Current Visit: Yes Status: Acute Source not clear. Only one out of 2 sets positive for Enterococcus faecalis ampicillin sensitive on 09/06/2018 Repeat cultures on 09/09/2018 no growth to date We will start ampicillin, as pharmacy to help us with the dosing. Duration of treatment 2 weeks if the cultures from 09/09/2018 are negative. If patient persistently continues to be bacteremic, consider a longer duration and consider a TTE to rule out endocarditis Discussed with the surgery team (2) Pneumonia Current Visit: Yes Status: Acute Patient's on physical exam has diffuse rhonchi and crackles everywhere. Also has adventitious lung sounds. CT chest and chest x-ray suggestive of consolidation right lower lobe concerning for pneumonia Sputum cultures positive for multidrug resistant Acinetobacter baumanni and another gram-negative leif has not finalized We will do colistin plus levofloxacin until the next gram-negative leif is finalized Duration of treatment 2 weeks Qualifiers: Pneumonia type: due to unspecified organism Laterality: bilateral Lung location: lower lobe of lung Qualified Code(s): J18.1 - Lobar pneumonia, unspecified organism (3) Abscess of right groin Current Visit: Yes Status: Acute Patient had a angioplasty going through the right grown followed by hematoma savita t has transformed to an abscess of months ago and has been persistently draining. Status post incision and drainage of the right groin abscess 09/05/2018 Intra-Op cultures positive for Escherichia coli ESBL, Acinetobacter baumanni multidrug resistant organism, Proteus mirabilis. Patient has been on vancomycin and Zosyn since Based on the culture results, I will DC the Zosyn, start the patient on l evofloxacin plus colistin. We will dose adjust based on the creatinine clearance and end-stage renal disease. We will ask pharmacy to help. Duration of treatment 2 weeks (4) Diabetes mellitus Current Visit: No Status: Chronic Qualifiers: Diabetes mellitus type: type 2 Diabetes mellitus intermodal customer service insulin use: without intermodal customer service use Diabetes mellitus complication status: with unspecified complications Qualified Code(s): E11.8 - Type 2 diabetes mellitus with unspecified complications (5) COPD (chronic obstructive pulmonary disease) Current Visit: No Status: Chronic Qualifiers: COPD type: unspecified COPD Qualified Code(s): J44.9 - Chronic obstructive pulmonary disease, unspecified (6) ESRD (end stage renal disease) on dialysis Current Visit: Yes Status: Acute - Subjective Interval history: patient seen and examined. sister at bedisde. no chest pain no shortness of b reath no abdominal pain no complaints VS noted labs reviewed cutlures noted Infect Dis PN-Objective Data - Labs CBC & Chem 7: 09/10/18 04:01 09/10/18 04:01 Labs: Laboratory Results - last 24 hr 09/09/18 09/09/18 09/10/18 08:03 16:22 04:01 WBC 7.4 RBC 2.77 L Hgb 7.6 L Hct 25.7 L MCV 92.8 MCH 27.4 L MCHC 29.6 L RDW 18.9 H Plt Count 271 MPV 10.3 Immature Gran % 0.5 Seg Neutrophils % 90.4 Lymphocytes % 1.6 Monocytes % 7.5 Eosinophils % 0.0 Basophils % 0.0 Neutrophils # 6.7 Lymphocytes # 0.1 L Monocytes # 0.6 Eosinophils # 0.0 Basophils # 0.0 Platelet Estimate Normal Sodium Potassium Chloride Carbon Dioxide BUN Creatinine Est GFR ( Amer) Est GFR (Non-Af Amer) BUN/Creatinine Ratio Glucose POC Glucose 281 H 260 H Calculated Osmolality Calcium 09/10/18 09/10/18 09/10/18 04:01 07:47 16:31 WBC RBC Hgb Hct MCV MCH MCHC RDW Plt Count MPV Immature Gran % Seg Neutrophils % Lymphocytes % Monocytes % Eosinophils % Basophils % Neutrophils # Lymphocytes # Monocytes # Eosinophils # Basophils # Platelet Estimate Sodium 134 L Potassium 4.6 Chloride 97 L Carbon Dioxide 28 BUN 34 H Creatinine 3.56 H Est GFR ( Amer) 21 L Est GFR (Non-Af Amer) 17 L BUN/Creatinine Ratio 10 Glucose 202 H POC Glucose 294 H 303 H Calculated Osmolality 291 Calcium 8.0 L Cultures: Cultures 09/05/18 19:09 Anaerobic Culture - Final Groin 09/05/18 19:09 Wound Culture - Final Groin Proteus mirabilis Escherichia coli ESBL Acinetobacter baumannii MDRO 09/08/18 09:00 Sputum Culture - Preliminary Sputum Acinetobacter baumannii MDRO Gram Negative Leif#2 09/09/18 09:35 Blood Culture - Preliminary Peripheral Venipuncture Culture is incubating and being continuously monitored for growth. Final report to follow. 09/09/18 09:35 Blood Culture - Preliminary Peripheral Venipuncture Culture is incubating and being continuously monitored for growth. Final report to follow. 09/06/18 16:26 Blood Culture - Final Peripheral Venipuncture Enterococcus faecalis 09/06/18 16:26 Blood Culture - Preliminary Peripheral Venipuncture Culture is incubating and being continuously monitored for growth. Final report to follow. Serology 09/06/18 09/04/18 Range/Units 16:26 07:14 A. baumannii (PCR) Not Detected (Not Detect) Ceci albicans (PCR) Not Detected (Not Detect) C. glabrata (PCR) Not Detected (Not Detect) C. krusei (PCR) Not Detected (Not Detect) C. parapsilosis (PCR) Not Detected (Not Detect) C. tropicalis (PCR) Not Detected (Not Detect) Enterobacteriac sp PCR Not Detected (Not Detect) E. cloacae complex PCR Not Detected (Not Detect) Enterococcus sp PCR DETECTED A (Not Detect) E. coli (PCR) Not Detected (Not Detect) H. influenzae (PCR) Not Detected (Not Detect) Hep Bs Antigen Nonreactive (Nonreactive) Hep Bs Antibody 0.49 mIU/mL Klebsiella oxytoca PCR Not Detected (Not Detect) Klebsiella pneumoniae Not Detected (Not Detect) List. monocytogenes PCR Not Detected (Not Detect) N. meningitidis (PCR) Not Detected (Not Detect) Proteus species (PCR) Not Detected (Not Detect) Serratia marcescens PCR Not Detected (Not Detect) Staphylococcus sp PCR Not Detected (Not Detect) Staph aureus (PCR) Not Detected (Not Detect) mecA-Methicil Res Gene N/A (Not Detect) Streptococcus sp PCR Not Detected (Not Detect) Group A Strep DNA Not Detected (Not Detect) Group B Strep (PCR) Not Detected (Not Detect) Strep pneumoniae (PCR) Not Detected (Not Detect) P. aeruginosa (PCR) Not Detected (Not Detect) Conor/B-Vanco Res Genes Not Detected (Not Detect) KPC (blaKPC) Detect PCR N/A (Not Detect) Exam - Constitutional Vitals: Temp Pulse Resp BP Pulse Ox 97.9 F 72 17 150/74 96 09/10/18 18:40 09/10/18 18:40 09/10/18 20:31 09/10/18 18:40 09/10/18 20:31 General appearance: cooperative, no acute distress, no febrile - Head Head exam: Present: atraumatic, normocephalic - Neck Neck exam: Present: normal inspection Additional comments: trach collar intact - Respiratory Additional comments: chest expanding symmetrically. coarse breath sounds bilaterally - Cardiovascular Cardiovascular exam: Present: RRR, +S1, +S2 - Extremities Exam Additional comments: right groin wound intact Consult Discharge Plan - Plan Referrals: NONE,PCP [Primary Care Provider] - (Patient is from [facility])
[2018-09-11] MEDS: Ipratropium/Albuterol Neb 3 ML IH SCH ×5 (03:54→16:02)
[2018-09-11] MEDS: *HR* Heparin 5,000 UNIT/ML VIAL SQ SCH (06:10)
[2018-09-11 07:13] LABS: Hematocrit 25.9 % (37.5-50.1); Hemoglobin 7.8 g/dL (12.9-16.9); Mean Corpuscular HGB Conc 30.1 g/dL (31.6-35.5); Mean Corpuscular Hemoglobin 28.1 pg (28.0-33.3); Mean Corpuscular Volume 93.2 fL (83.0-100.0); Mean Platelet Volume 10.1 fL (9.4-12.4); Platelet Count 246 K/mcL (140-400); Red Blood Count 2.78 M/mcL (4.19-5.50); Red Cell Distribution Width 18.7 % (11.5-14.5)
[2018-09-11 07:34] LABS: Calcium 8.1 mg/dL (8.6-10.3); Potassium 4.8 mEq/L (3.5-5.1)
[2018-09-11] MEDS: Budesonide/Formoterol 160/4.5 1 PUFF INH IH SCH (07:38)
[2018-09-11] MEDS ORDERED: 0.9 % Sodium Chloride 250 ML IVC PRN ×2 (08:07→08:10)
[2018-09-11] MEDS ORDERED: *HR* Heparin 10,000 UNIT/10 ML VIAL IV PRN (08:07)
[2018-09-11] MEDS ORDERED: 0.9 % Sodium Chloride 1,000 ML PRIME SCH (08:15)
[2018-09-11] MEDS ORDERED: 0.9 % Sodium Chloride 2,000 ML ONE (08:20)
[2018-09-11] MEDS: Sucralfate 1 GM TABLET PO SCH ×2 (09:33→13:37)
[2018-09-11] MEDS: Gabapentin 100 MG CAPSULE PO SCH (09:33)
[2018-09-11] MEDS: Aspirin Enteric Coated 81 MG Tablet PO SCH (09:33)
[2018-09-11] MEDS: predniSONE 20 MG TABLET PO SCH (09:33)
[2018-09-11] MEDS: Insulin LISPRO 300 UNITS/3 ML VIAL SQ SCH ×2 (09:43→14:34)
[2018-09-11] MEDS ORDERED: Ampicillin 2 GM in 0.9 % Sodium Chloride Mini Bag 100 ML IVPB SCH (10:00)
[2018-09-11] MEDS: *HR* Digoxin 0.125 MG TABLET PO SCH (10:00)
[2018-09-11] MEDS: hydrALAZINE 10 MG TABLET PO SCH (10:00)
--- NOTE | 2018-09-11 10:41 | Internal Med Progress Note ---
<Nya Marsh - Last Filed: 09/11/18 10:38> Hospitalist Progress Note - Encounter Date of Encounter: 09/11/18 Time of Encounter: 10:39 - Subjective Interval History: 68-year-old male evaluated at bedside. He denies nausea, vomiting, diarrhea, fever, chills, chest pain, shortness of breath. He denies any new complaints today. He was laying in bed getting breathing treatment. - Exam Vitals: Temp Pulse Resp BP Pulse Ox 97.9 F 79 18 130/77 92 09/11/18 07:54 09/11/18 07:54 09/11/18 07:54 09/11/18 07:54 09/11/18 07:54 Exam: General: alert and oriented 3, no acute distress, vital signs stable. neck: tracheostomy in place. Lungs: coarse breath sounds heard throughout. CV: RRR, no murmurs, rubs, gallops. S1, S2 noted. Abdomen: soft, non distended, non tender, bowel sounds present. PEG tube in place. no organomegaly. Extremities: +1 bilateral lower extremity pitting edema. no cyanosis or clubbing noted. SKin: no rashes noted. RIght groin packed with dressing. no purulent discharge noted. 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 continue ampicillin, colistin, levaquin as recommended by ID service. Duration of treatment will be 2 weeks from 09/09 if blood cultures remain negative. if patient continues to be bacteremic, consider longer duration and TTE to rule out endocarditis. plan to discharge to [facility] once cultures are finalized and no further growth noted. (2) Pneumonia Status: Acute Assessment and Plan: sputum culture grew Acinetobacter baumanni MDRO, E.Coli. continue with colistin plus levaquin as above (3) Acute respiratory failure with hypoxia and hypercapnia Status: Acute Assessment and Plan: Status post cardiac arrest on 09/06, likely secondary to mucus plugging. Patient has been seen and managed by ICU team. Plan: continue antibiotic regimen, scheduled DuoNebs, steroids. encourage incentive spirometry. (4) COPD exacerbation Status: Acute Assessment and Plan: Likely secondary to mucus plugging, pneumonia. 09/08 chest x-ray showed stable CHF with mild effusions the lung base. Plan: scheduled duoNebs, ABX as above 40mg prednisone daily, day 2 (5) Abscess of right groin Status: Acute Assessment and Plan: Patient admitted for right groin abscess. 09/05-he received I&D of right groin with debridement wound culture growing proteus, E.Coli ESBL, Acinetobacter baumanni MDRO Plan: wound care and dressings per surgery team and wound care team. (6) ESRD (end stage renal disease) on dialysis Status: Acute Assessment and Plan: Dialysis per nephrology team. (7) Anemia Status: Acute Assessment and Plan: History of chronic anemia continue to monitor (8) Goals of care, counseling/discussion Status: Acute Assessment and Plan: Patient seen and evaluated by palliative care team, with extensive goals of care conversations. Plan is to return to [facility], code status changed to DNRCCA. (9) DVT prophylaxis Status: Acute Assessment and Plan: Heparin SQ - Time Spent with Patient Total time spent is greater than 50% in coordination of care (as documented) at patient's floor/unit and/or counseling patient: Internal Medicine: Result - Labs CBC & Chem 7: 09/11/18 06:52 09/11/18 06:52 Labs: Short CBC 09/11/18 Range/Units 06:52 WBC 8.7 (4.3-11.1) K/mcL Hgb 7.8 L (12.9-16.9) g/dL Hct 25.9 L (37.5-50.1) % Plt Count 246 (140-400) K/mcL BMP 09/11/18 06:52 Sodium 128 L Potassium 4.8 Chloride 92 L Carbon Dioxide 26 BUN 53 H Creatinine 4.48 H Glucose 251 H Calcium 8.1 L - ABG Interpretation ABG results: ABG ABG pH 7.23 pH Units (7.32-7.45) L 09/06/18 12:23 ABG pCO2 67 mmHg (35-45) H 09/06/18 12:23 ABG pO2 72 mmHg (85-104) L 09/06/18 12:23 ABG O2 Saturation 90 % (95-98) L 09/06/18 12:23 PT/INR, D-dimer PT 11.9 Seconds (9.4-12.1) 09/03/18 19:02 Consult Discharge Plan - Plan Additional Instructions: Follow-up with your primary care provider within one week of discharge. If you do not have a primary care provider, you may establish with one at the residency clinic: [phone] follow recommendations per physical and occupational therapy. Finish course of antibiotics as prescribed. Continue with incentive spirometry treat with antibiotics through 09/24 do slow prednisone taper from 40mg. Referrals: NONE,PCP [Primary Care Provider] - (Patient is from [facility]) Prescriptions: Ampicillin 2 gm IV Q12H #27 vial Colistin (Colistimethate) [Coly-Mycin M Parenteral] 150 mg IVPB DAILY 14 Days #14 vial Levofloxacin 750 MG/150 ML [Levaquin Premix 750mg/150 mL] 750 mg IVPB MOWEFR #6 bag <Wiley Peterson - Last Filed: 09/11/18 20:08> Hospitalist Progress Note - Encounter Date of Encounter: 09/11/18 - Exam Vitals: Temp Pulse Resp BP Pulse Ox 97.4 F L 77 22 127/77 91 09/11/18 13:23 09/11/18 15:29 09/11/18 15:29 09/11/18 15:29 09/11/18 15:29 - Assessment and Plan (1) Abscess of right groin Status: Acute (2) ESRD (end stage renal disease) on dialysis Status: Acute (3) Anemia Status: Acute (4) Acute respiratory failure with hypoxia and hypercapnia Status: Acute (5) Goals of care, counseling/discussion Status: Acute (6) Pneumonia Status: Acute (7) COPD exacerbation Status: Acute (8) Bacteremia due to Enterococcus Status: Acute (9) DVT prophylaxis Status: Acute - Time Spent with Patient Total time spent is greater than 50% in coordination of care (as documented) at patient's floor/unit and/or counseling patient: Internal Medicine: Result - Labs CBC & Chem 7: 09/11/18 06:52 09/11/18 06:52 Labs: Short CBC 09/11/18 Range/Units 06:52 WBC 8.7 (4.3-11.1) K/mcL Hgb 7.8 L (12.9-16.9) g/dL Hct 25.9 L (37.5-50.1) % Plt Count 246 (140-400) K/mcL [facility] 09/11/18 06:52 Sodium 128 L Potassium 4.8 Chloride 92 L Carbon Dioxide 26 BUN 53 H Creatinine 4.48 H Glucose 251 H Calcium 8.1 L - ABG Interpretation ABG results: ABG ABG pH 7.23 pH Units (7.32-7.45) L 09/06/18 12:23 ABG pCO2 67 mmHg (35-45) H 09/06/18 12:23 ABG pO2 72 mmHg (85-104) L 09/06/18 12:23 ABG O2 Saturation 90 % (95-98) L 09/06/18 12:23 PT/INR, D-dimer PT 11.9 Seconds (9.4-12.1) 09/03/18 19:02 - Attending Attestation I have examined this patient [id number] and my medical decision-making was reviewed with the Resident Physician. I agree with the documented findings, disposition and treatment plan as described except to the extent set forth below. <Nya Marsh - Last Filed: 09/11/18 10:38> (2) Pneumonia Qualifiers: Pneumonia type: due to unspecified organism Laterality: bilateral Lung location: lower lobe of lung Qualified Code(s): J18.1 - Lobar pneumonia, unspec ified organism (7) Anemia Qualifiers: Anemia type: due to chronic kidney disease Chronic kidney disease stage: on chronic dialysis Qualified Code(s): N18.6 - End stage renal disease; D63.1 - Anemia in chronic kidney disease; Z99.2 - Dependence on renal dialysis <Wiley Peterson - Last Filed: 09/11/18 20:08> (3) Anemia Qualifiers: Anemia type: due to chronic kidney disease Chronic kidney disease stage: on chronic dialysis Qualified Code(s): N18.6 - End stage renal disease; D63.1 - Anemia in chronic kidney disease; Z99.2 - Dependence on renal dialysis (6) Pneumonia Qualifiers: Pneumonia type: due to unspecified organism Laterality: bilateral Lung location: lower lobe of lung Qualified Code(s): J18.1 - Lobar pneumonia, unspecified organism
[2018-09-11] MEDS ORDERED: Insulin DETEMIR 100 UNIT/ML X5UNITS SQ SCH (11:00)
--- NOTE | 2018-09-11 11:25 | Nephrology Progress Note ---
Date of Encounter: 09/11/18 Time of Encounter: 11:23 - Assessment and Plan (1) ESRD (end stage renal disease) on dialysis Current Visit: Yes Status: Acute HD in progress, tolerating well. Continue fluid restriction. Continue renal diet when able. Avoid nephrotoxins and renal dose. (2) Abscess of right groin Current Visit: Yes Status: Acute Per surgery. (3) Dyspnea Current Visit: Yes Status: Acute improved Qualifiers: Dyspnea type: unspecified Qualified Code(s): R06.00 - Dyspnea, unspecified (4) Anemia Current Visit: Yes Status: Acute Goal Hgb 10-11. Hgb is 7.8, today. Will defer transfusion parameters to primary team. Qualifiers: Anemia type: due to chronic kidney disease Chronic kidney disease stage: on chronic dialysis Qualified Code(s): N18.6 - End stage renal disease; D63.1 - Anemia in chronic kidney disease; Z99.2 - Dependence on renal dialysis Subjective Principal diagnosis: abscess right groin Interval history: Pt seen and examined during HD, tolerating well. Denies any CP or shortness of breath. Objective - Vital Signs Vital signs: Vital Signs Temp Pulse Resp BP Pulse Ox 09/11/18 11:00 108/61 09/11/18 10:45 109/53 09/11/18 10:30 119/59 09/11/18 10:15 128/79 09/11/18 10:00 96.9 F L 18 130/56 09/11/18 07:54 97.9 F 79 18 130/77 92 09/11/18 07:38 16 93 09/11/18 04:23 97.7 F 92 18 128/64 94 09/11/18 03:55 93 09/10/18 23:40 97.9 F 71 19 152/84 95 09/10/18 23:11 97 09/10/18 20:31 17 96 09/10/18 18:40 97.9 F 72 20 150/74 95 09/10/18 16:43 73 18 163/86 Intake and Output 09/10/18 09/11/18 09/11/18 23:59 07:59 15:59 Intake Total 1220 / 1220 100 / 100 1080 / 1080 Output Total 0 / 0 0 / 0 Balance 1220 / 1220 100 / 100 1080 / 1080 Intake: IV Fluids 350 / 350 Ampicillin 2 GM In 0.9 % Sodium 100 / 100 Chloride (Mini-Bag +) 100 ML @ 200 mls/hr IVPB Q24H [facility] Rx#: [id number] Coly-Mycin M PARENTERAL 300 MG 100 / 100 In 0.9 % Sodium Chloride 100 ML @ 100 mls/hr IVPB ONCE ONE Rx# :[id number] Levaquin Premix 750mg/150 mL 150 / 150 750 mg In 150 ml @ 100 mls/hr IVPB Q48H [facility] Rx#:[id number] Oral 620 / 620 0 / 0 480 / 480 Intake, Rinseback and Flushes 600 / 600 Free Water Intake Amount 250 / 250 100 / 100 Output: Urine 0 / 0 0 / 0 Other: Meal Dinner Breakfast Percent of Meal Consumed 25% 100% Weight 103.7 kg Blood Glucose* 208 263 Hemodialysis Net Fluid Removed 1206 (mL) Patient Weight 09/11/18 23:59 Weight 103.7 kg - General Appearance General appearance: Present: well-developed, well-nourished EENT: Present: ATNC, hearing intact, vision intact Neck: Present: supple Respiratory: Present: clear Cardiology: Present: edema (Trace bilat lower extremity.), normal S1, normal S2 Gastrointestinal: Present: normoactive bowel sounds, no tenderness, no guarding Integumentary: Present: no rash, warm and dry Neurologic: Present: alert and oriented x3 Psychiatric: Present: mood/affect appropriate, cooperative - Lab 09/11/18 06:52 09/11/18 06:52 Most recent lab results ABG pH 7.23 pH Units (7.32-7.45) L 09/06/18 12:23 ABG pCO2 67 mmHg (35-45) H 09/06/18 12:23 ABG pO2 72 mmHg (85-104) L 09/06/18 12:23 ABG HCO3 28 mEq/L (21-27) H 09/06/18 12:23 ABG O2 Saturation 90 % (95-98) L 09/06/18 12:23 Calcium 8.1 mg/dL (8.6-10.3) L 09/11/18 06:52 Phosphorus 9.3 mg/dL (2.7-4.5) H 09/06/18 10:57 Magnesium 3.1 mg/dL (1.6-2.6) H 09/06/18 10:57 Consult Discharge Plan - Plan Additional Instructions: Follow-up with your primary care provider within one week of discharge. If you do not have a primary care provider, you may establish with one at the residency clinic: [phone] follow recommendations per physical and occupational therapy. Finish course of antibiotics as prescribed. Continue with incentive spirometry Referrals: NONE,PCP [Primary Care Provider] - (Patient is from [facility])
--- NOTE | 2018-09-11 13:44 | Discharge Summary ---
<Nya Marsh - Last Filed: 09/11/18 14:42> Orders not resulted at time of discharge: Pending orders 09/06/18 16:26 Culture,Blood [BC] Stat 09/09/18 09:35 Culture,Blood [BC] Stat 09/12/18 04:00 Chem 7 [Basic Metabolic Panel] AM 0400 Complete Blood Count [HEME] AM 0400 Complete Blood Count w/o Diff [HEME] AM 0400 09/13/18 04:00 Chem 7 [Basic Metabolic Panel] AM 0400 Complete Blood Count w/o Diff [HEME] AM 0400 09/14/18 04:00 Chem 7 [Basic Metabolic Panel] AM 0400 Complete Blood Count w/o Diff [HEME] AM 0400 09/15/18 04:00 Chem 7 [Basic Metabolic Panel] AM 0400 Complete Blood Count w/o Diff [HEME] AM 0400 09/16/18 04:00 Chem 7 [Basic Metabolic Panel] AM 0400 Complete Blood Count w/o Diff [HEME] AM 0400 09/17/18 04:00 Chem 7 [Basic Metabolic Panel] AM 0400 Complete Blood Count w/o Diff [HEME] AM 0400 09/18/18 04:00 Chem 7 [Basic Metabolic Panel] AM 0400 Complete Blood Count w/o Diff [HEME] AM 0400 09/19/18 04:00 Chem 7 [Basic Metabolic Panel] AM 0400 Complete Blood Count w/o Diff [HEME] AM 0400 Date of Encounter: 09/11/18 Time of Encounter: 13:41 - Discharge Diagnosis (1) Bacteremia due to Enterococcus Priority: Primary Status: Acute (2) Pneumonia Priority: Secondary Status: Acute Qualifiers: Pneumonia type: due to unspecified organism Laterality: bilateral Lung location: lower lobe of lung Qualified Code(s): J18.1 - Lobar pneumonia, unspecified organism (3) Acute respiratory failure with hypoxia and hypercapnia Priority: Secondary Status: Acute (4) COPD exacerbation Priority: Secondary Status: Acute (5) Abscess of right groin Priority: Secondary Status: Acute (6) ESRD (end stage renal disease) on dialysis Priority: Secondary Status: Acute (7) Anemia Priority: Secondary Status: Acute Qualifiers: Anemia type: due to chronic kidney disease Chronic kidney disease stage: on chronic dialysis Qualified Code(s): N18.6 - End stage renal disease; D63.1 - Anemia in chronic kidney disease; Z99.2 - Dependence on renal dialysis (8) Goals of care, counseling/discussion Priority: Secondary Status: Acute (9) DVT prophylaxis Priority: Secondary Status: Acute Hospital course: Mr. Sanon is a 68 year old male with past medical history of CAD S/P CABG, ESRD on dialysis, COPD requiring home oxygen, Hx of trach/PEG placement. Patient arrived to [facility] on 09/03/18 for right groin abscess that had been present for several weeks after heart catheterization. He subsequently had developed a hematoma which then became infected forming and abscess. He was admitted to the hospital under the general surgery service. Consult to cardiology was made for operative clearance. He was determined to be acceptable high risk for intermediate risk surgery, and cardiology determined that he will need to have dialysis secondary to fluid overload prior to his surgery. On 09/05/18, patient went to OR and had incision and drainage of his right groin abscess with excisional debridement. The patient tolerated the procedure well. The following day on 09/06, patient underwent unexpected cardiac arrest with pulseless electrical activity requiring 3 minutes of CPR, 1 mg epinephrine, 2g magnesium, 2 A HCO3, 1 L bolus normal saline. ROSC was obtained within 3 minutes. Patient was transferred to the ICU for further management and workup. CTA showed no acute pulmonary embolism. There was emphysema in the left lower lobe with pneumonia and pleural effusion, dependent atelectasis versus infiltrate in the right lower lobe. It was determined that is cardiac arrest was likely secondary to hypoxemia from mucus plugging and pneumonia. Repeat echocardiogram showed stable ejection fraction 50-55% with diastolic dysfunction. Patient had wound cultures drawn that were positive for Proteus Mirabilis, E.Coli ESBL, Acinetobacter. He also had blood culture positive for Enterococcus faecalis. Sputum culture was positive for Acinetobacter baumannii MDRO, E.Coli ESBL. Patient was initially started on vancomycin and Zosyn, but then antibiotics were changed once cultures were finalized. Per infectious disease recommendations, patient was started on ampicillin, colistin, levaquin based on culture sensitivities. Duriation of treatment will be 14 days and plan will be to treat through 09/23. Patient was discharged from the hospital in stable condition. Plan: treatment with current antibiotics through 09/24. Patient will need slow prednisone taper. currently on prednisone 40mg Discharge discussed with: patient, social work, case management Time spent discussing smoking cessation with patient: more than 10 minutes - Time Spent with Patient Total time spent providing and/or coordinating discharge services: - Discharge Medications Prescriptions: Ampicillin 2 gm IV Q12H #27 vial Colistin (Colistimethate) [Coly-Mycin M Parenteral] 150 mg IVPB DAILY 14 Days #14 vial Levofloxacin 750 MG/150 ML [Levaquin Premix 750mg/150 mL] 750 mg IVPB MOWEFR #6 bag Home Medications: Ascorbate Calcium [Vitamin C] 500 mg PO DAILY 01/13/18 [History] [place]-3/Dha/Epa/Fish Oil [Fish Oil [place]-3 EC 1,200 mg] 1 cap PO DAILY 01/13/18 [History] Acetaminophen [Tylenol] 325 mg PO Q8HR PRN 05/01/18 [History] Nitroglycerin [Nitrostat] 0.4 mg SL DAILY PRN 05/01/18 [History] Allopurinol [Zyloprim 100 MG] 100 mg PO DAILY 09/03/18 [History] Apixaban [Eliquis] 2.5 mg PO BID 09/03/18 [History] Aspirin [Lo-Dose Aspirin EC] 81 mg PO DAILY 09/03/18 [History] Atorvastatin Calcium [Lipitor] 80 mg PO DAILY 09/03/18 [History] Budesonide/Formoterol 160/4.5 [Symbicort 160/4.5] 2 puff IH BID 09/03/18 [History] Digoxin [Lanoxin] 0.125 mg PO Q48H 09/03/18 [History] Gabapentin [Neurontin] 100 mg PO BID 09/03/18 [History] GuaiFENesin ER [Mucinex] 600 mg PO BID 09/03/18 [History] Ipratropium/Albuterol Neb [Duoneb] 3 ml IH Q4HR PRN 09/03/18 [History] Isosorbide DInitrate [Isordil] 10 mg PO TIDAC 09/03/18 [History] Lidocaine Patch [Lidoderm 5% patch] 1 each TP DAILY 09/03/18 [History] Lidocaine Patch [Lidoderm 5% patch] 1 each TP DAILY 09/03/18 [History] Lidocaine Patch [Lidoderm 5% patch] 1 each TP DAILY 09/03/18 [History] Melatonin 3 mg PO HS 09/03/18 [History] Metoprolol [Lopressor] 12.5 mg PO BID 09/03/18 [History] Pantoprazole Sodium [Protonix] 40 mg PO DAILY 09/03/18 [History] Quetiapine Fumarate [Seroquel] 50 mg PO HS 09/03/18 [History] Renal Vitamin [Renal Caps Softgel] 1 mg PO DAILY 09/03/18 [History] Sevelamer Carbonate [Renvela] 2.4 gm PO TID 09/03/18 [History] hydrALAZINE [HydrALAZINE] 10 mg PO Q8HR 09/03/18 [History] Ammonium Lactate [Amlactin] 30 appl TP BID 09/04/18 [History] Hydrocortisone 2.5% CREAM [Cortaid] 1 appl TP BID PRN 09/04/18 [History] Nicotine Patch [Nicoderm] 7 mg TD DAILY 09/04/18 [History] Sucralfate [Carafate] 1 gm PO Q6H 09/04/18 [History] Ampicillin 2 gm IV Q12H #27 vial 09/11/18 [Rx] Bisacodyl [Dulcolax] 10 mg RC BID PRN supp.rect 09/11/18 [Rx] Colistin (Colistimethate) [Coly-Mycin M Parenteral] 150 mg IVPB DAILY 14 Days #14 vial 09/11/18 [Rx] Insulin DETEMIR [Levemir] 10 unit SQ BID [id number] 09/11/18 [Rx] Insulin LISPRO [HumaLOG] 0 units SQ HS vial 09/11/18 [Rx] Insulin LISPRO [HumaLOG] 0 units SQ TIDAC vial 09/11/18 [Rx] Levofloxacin 750 MG/150 ML [Levaquin Premix 750mg/150 mL] 750 mg IVPB MOWEFR #6 bag 09/11/18 [Rx] predniSONE [PredniSONE] 40 mg PO DAILY tablet 09/11/18 [Rx] Allergies/Adverse Reactions: Allergy/AdvReac Type Severity Reaction Status Date / Time No Known Allergies Allergy Verified 01/13/18 21:28 Date of admission: 09/03/18 20:54 Primary care physician: PCP NONE Consults: 09/03/18 21:15 Consult to Cardiology [CONS] Routine Comment: Consulting Provider: Cardiology Harika Reason for Consult: pre op Call Completed: Yes 09/06/18 02:33 Consult to Nephrology [CONS] Routine Consulting Provider: Kidney Harika/RAMONA/GREGOR/JOSUE Reason for Consult: reconsulted d/t first consult being d/c from surgery transfer orders Call Completed: No Consult to Nutrition [CONS] Routine Comment: Consulting Provider: NUTRITION Reason for Dietary Consult: Tube Feed Start & Manage Consult to Respiratory Therapy [CONS] Routine Reason for Consult: reconsulted d/t first consult being d/c from surgery transfer orders Call Completed: No Consult to Surgical Scrub Tech [CONS] Routine Reason for SW Consult: reconsulted d/t first consult being d/c from surgery transfer orders 09/06/18 08:00 Consult to Dialysis [CONS] ONCE 09/06/18 11:59 Consult to Pulmonology [CONS] Stat Consulting Provider: Pulm Crit Care & Sleep Harika Reason for Consult: code blue Call Completed: Yes 09/06/18 13:29 Consult to Palliative Care [CONS] Stat Comment: Consulting Provider: Palliative Care Harika Reason for Consult: code status, goals of care Time Notified: 13:29 Call Completed: Yes 09/09/18 08:30 Consult to Dialysis [CONS] ONCE 09/09/18 08:46 Consult to Surgical Scrub Tech [CONS] Stat Reason for SW Consult: D/c planning; return to ECF today, with wound vac 09/09/18 11:31 Consult to Infectious Diseases [CONS] Routine Consulting Provider: Infectious Disease Harika Reason for Consult: enterococcus bacteremia. need recs for ABX upon discharge. Call Completed: No 09/11/18 08:15 Consult to Dialysis [CONS] ONCE Discharging clinician: Nya Marsh Anticipated date of discharge: 09/11/18 - Constitutional Vitals: Temp Pulse Resp BP Pulse Ox 97.4 F L 79 18 137/76 92 09/11/18 13:23 09/11/18 07:54 09/11/18 13:23 09/11/18 13:23 09/11/18 07:54 Exam: General: alert and oriented 3, no acute distress, vital signs stable. neck: tracheostomy in place. Lungs: coarse breath sounds heard throughout. CV: RRR, no murmurs, rubs, gallops. S1, S2 noted. Abdomen: soft, non distended, non tender, bowel sounds present. PEG tube in place. no organomegaly. Extremities: +1 bilateral lower extremity pitting edema. no cyanosis or clubbing noted. SKin: no rashes noted. RIght groin packed with dressing. no purulent discharge noted. - Patient Status Disposition: Transfer SNF Condition: Fair Functional capacity at discharge: wheelchair bound Overall status at discharge: patient is not back to baseline - Discharge Instructions Follow Up With: NONE,PCP [Primary Care Provider] - (Patient is from [facility]) Additional Instructions: Follow-up with your primary care provider within one week of discharge. If you do not have a primary care provider, you may establish with one at the [facility]: [phone] follow recommendations per physical and occupational therapy. Finish course of antibiotics as prescribed. Continue with incentive spirometry treat with antibiotics through 09/24 do slow prednisone taper from 40mg. - Diet and Activity Activity: as per physical therapy Diet: other (Tube feeding diet, mechanically altered diet.) <Wiley Peterson - Last Filed: 09/11/18 20:08> Orders not resulted at time of discharge: Pending orders 09/09/18 09:35 Culture,Blood [BC] Stat Date of Encounter: 09/11/18 - Discharge Diagnosis (1) Abscess of right groin Status: Acute (2) ESRD (end stage renal disease) on dialysis Status: Acute (3) Anemia Status: Acute Qualifiers: Anemia type: due to chronic kidney disease Chronic kidney disease stage: on chronic dialysis Qualified Code(s): N18.6 - End stage renal disease; D63.1 - Anemia in chronic kidney disease; Z99.2 - Dependence on renal dialysis (4) Acute respiratory failure with hypoxia and hypercapnia Status: Acute (5) Goals of care, counseling/discussion Status: Acute (6) Pneumonia Status: Acute Qualifiers: Pneumonia type: due to unspecified organism Laterality: bilateral Lung location: lower lobe of lung Qualified Code(s): J18.1 - Lobar pneumonia, unspecified organism (7) COPD exacerbation Status: Acute (8) Bacteremia due to Enterococcus Status: Acute (9) DVT prophylaxis Status: Acute Hospital course: Mr. Sanon is a 68 year old male - Time Spent with Patient Total time spent providing and/or coordinating discharge services: Date of admission: 09/03/18 20:54 Primary care physician: PCP NONE Consults: 09/03/18 21:15 Consult to Cardiology [CONS] Routine Comment: Consulting Provider: Cardiology Harika Reason for Consult: pre op Call Completed: Yes 09/06/18 02:33 Consult to Nephrology [CONS] Routine Consulting Provider: Kidney Harika/RAMONA/GREGOR/JOSUE Reason for Consult: reconsulted d/t first consult being d/c from surgery transfer orders Call Completed: No Consult to Nutrition [CONS] Routine Comment: Consulting Provider: NUTRITION Reason for Dietary Consult: Tube Feed Start & Manage Consult to Respiratory Therapy [CONS] Routine Reason for Consult: reconsulted d/t first consult being d/c from surgery transfer orders Call Completed: No Consult to Surgical Scrub Tech [CONS] Routine Reason for SW Consult: reconsulted d/t first consult being d/c from surgery transfer orders 09/06/18 08:00 Consult to Dialysis [CONS] ONCE 09/06/18 11:59 Consult to Pulmonology [CONS] Stat Consulting Provider: Pulm Crit Care & Sleep Avant Reason for Consult: code blue Call Completed: Yes 09/06/18 13:29 Consult to Palliative Care [CONS] Stat Comment: Consulting Provider: Palliative Care Harika Reason for Consult: code status, goals of care Time Notified: 13:29 Call Completed: Yes 09/09/18 08:30 Consult to Dialysis [CONS] ONCE 09/09/18 08:46 Consult to Surgical Scrub Tech [CONS] Stat Reason for SW Consult: D/c planning; return to ECF today, with wound vac 09/09/18 11:31 Consult to Infectious Diseases [CONS] Routine Consulting Provider: Infectious Disease Avant Reason for Consult: enterococcus bacteremia. need recs for ABX upon discharge. Call Completed: No 09/11/18 08:15 Consult to Dialysis [CONS] ONCE - Constitutional Vitals: Temp Pulse Resp BP Pulse Ox 97.4 F L 77 22 127/77 91 09/11/18 13:23 09/11/18 15:29 09/11/18 15:29 09/11/18 15:29 09/11/18 15:29 - Attending Attestation I have examined this patient [id number] and my medical decision-making was reviewed with the Resident Physician. I agree with the documented findings, disposition and treatment plan as described except to the extent set forth below.
--- NOTE | 2018-09-11 15:01 | Physician Discharge Referral ---
ExtendedCare Referral Info Transfer To: ECF Provider in Charge after Transfer: PCP Institutional Level of Care: Skilled - Diagnosis (1) Bacteremia due to Enterococcus Priority: Primary Status: Acute (2) Pneumonia Priority: Secondary Status: Acute (3) Acute respiratory failure with hypoxia and hypercapnia Priority: Secondary Status: Acute (4) COPD exacerbation Priority: Secondary Status: Acute (5) Abscess of right groin Priority: Secondary Status: Acute (6) ESRD (end stage renal disease) on dialysis Priority: Secondary Status: Acute (7) Anemia Priority: Secondary Status: Acute (8) Goals of care, counseling/discussion Priority: Secondary Status: Acute (9) DVT prophylaxis Priority: Secondary Status: Acute Prognosis: Fair Aware of Diagnosis: Patient Aware of Prognosis: Patient - Transfer Medications Prescriptions: Ampicillin 2 gm IV Q12H #27 vial Colistin (Colistimethate) [Coly-Mycin M Parenteral] 150 mg IVPB DAILY 14 Days #14 vial Levofloxacin 750 MG/150 ML [Levaquin Premix 750mg/150 mL] 750 mg IVPB MOWEFR #6 bag Home Medications: Ascorbate Calcium [Vitamin C] 500 mg PO DAILY 01/13/18 [History] [place]-3/Dha/Epa/Fish Oil [Fish Oil [place]-3 EC 1,200 mg] 1 cap PO DAILY 01/13/18 [History] Acetaminophen [Tylenol] 325 mg PO Q8HR PRN 05/01/18 [History] Nitroglycerin [Nitrostat] 0.4 mg SL DAILY PRN 05/01/18 [History] Allopurinol [Zyloprim 100 MG] 100 mg PO DAILY 09/03/18 [History] Apixaban [Eliquis] 2.5 mg PO BID 09/03/18 [History] Aspirin [Lo-Dose Aspirin EC] 81 mg PO DAILY 09/03/18 [History] Atorvastatin Calcium [Lipitor] 80 mg PO DAILY 09/03/18 [History] Budesonide/Formoterol 160/4.5 [Symbicort 160/4.5] 2 puff IH BID 09/03/18 [History] Digoxin [Lanoxin] 0.125 mg PO Q48H 09/03/18 [History] Gabapentin [Neurontin] 100 mg PO BID 09/03/18 [History] GuaiFENesin ER [Mucinex] 600 mg PO BID 09/03/18 [History] Ipratropium/Albuterol Neb [Duoneb] 3 ml IH Q4HR PRN 09/03/18 [History] Isosorbide DInitrate [Isordil] 10 mg PO TIDAC 09/03/18 [History] Lidocaine Patch [Lidoderm 5% patch] 1 each TP DAILY 09/03/18 [History] Lidocaine Patch [Lidoderm 5% patch] 1 each TP DAILY 09/03/18 [History] Lidocaine Patch [Lidoderm 5% patch] 1 each TP DAILY 09/03/18 [History] Melatonin 3 mg PO HS 09/03/18 [History] Metoprolol [Lopressor] 12.5 mg PO BID 09/03/18 [History] Pantoprazole Sodium [Protonix] 40 mg PO DAILY 09/03/18 [History] Quetiapine Fumarate [Seroquel] 50 mg PO HS 09/03/18 [History] Renal Vitamin [Renal Caps Softgel] 1 mg PO DAILY 09/03/18 [History] Sevelamer Carbonate [Renvela] 2.4 gm PO TID 09/03/18 [History] hydrALAZINE [HydrALAZINE] 10 mg PO Q8HR 09/03/18 [History] Ammonium Lactate [Amlactin] 30 appl TP BID 09/04/18 [History] Hydrocortisone 2.5% CREAM [Cortaid] 1 appl TP BID PRN 09/04/18 [History] Nicotine Patch [Nicoderm] 7 mg TD DAILY 09/04/18 [History] Sucralfate [Carafate] 1 gm PO Q6H 09/04/18 [History] Ampicillin 2 gm IV Q12H #27 vial 09/11/18 [Rx] Bisacodyl [Dulcolax] 10 mg RC BID PRN supp.rect 09/11/18 [Rx] Colistin (Colistimethate) [Coly-Mycin M Parenteral] 150 mg IVPB DAILY 14 Days #14 vial 09/11/18 [Rx] Insulin DETEMIR [Levemir] 10 unit SQ BID [id number] 09/11/18 [Rx] Insulin LISPRO [HumaLOG] 0 units SQ HS vial 09/11/18 [Rx] Insulin LISPRO [HumaLOG] 0 units SQ TIDAC vial 09/11/18 [Rx] Levofloxacin 750 MG/150 ML [Levaquin Premix 750mg/150 mL] 750 mg IVPB MOWEFR #6 bag 09/11/18 [Rx] predniSONE [PredniSONE] 40 mg PO DAILY tablet 09/11/18 [Rx] Allergies/Adverse Reactions: Allergy/AdvReac Type Severity Reaction Status Date / Time No Known Allergies Allergy Verified 01/13/18 21:28 - Respiratory Orders Oxygen / L per min Smoking Cessation: Smoking cessation has been advised. For more information, call the [place] Tobacco Quit Line at 0-248-NGML-NOW. - Ancillary Orders May use pressure relief devices daily prn, May go on SHAQUILLE w/family/respon alliance party w /meds at nurse discretion PRN, May consult with Dentist, Bounty Hunter, Manager Trade Marketing PRN - Advance Directives Code Status: DNR-Arrest - Mobility Orders Chair, Ambulate - Rehabiliation Orders Rehab Potential: Fair Rehab Orders: Sternal Precautions, ROM Exercises, Evaluation for Physical Therapy, Evaluation for Occupational Therapy, Evaluation for Speech Therapy - Treatments Skin tear care topically daily PRN per policy, May check for fecal impaction rectally daily PRN, Fleet enema rectally every other day PRN cleansing purposes - Diet Orders Mechanical Soft (mechanically altered and tube feeds.) CERTIFICATION: I certify that the transfer of the above named patient to an Extended Care Facility is necessary for the continuing treatment of the diagnosis listed. The above information is true and accurate reflection of patient's current condition. Confidential - Redisclosure prohibited without a patient's written consent.
[2018-09-11 15:31] VITALS: BP 127/77
[2018-09-11] MEDS ORDERED: Colistin (Colistimethate) 150 MG in 0.9 % Sodium Chloride 50 ML IVPB SCH (16:00)
[2018-09-11] MEDS ORDERED: COLISTIN IVPB SCH (16:00)
[2018-09-11] MEDS ORDERED: SODIUM CHLORIDE 0.9% IVPB SCH (16:00)
[2018-09-11] MEDS: OXYCODONE Oral CONC 10 MG/0.5 ML ORAL.SYG SL PRN (16:35)
[2018-09-11] MEDS ORDERED: Levofloxacin 750 MG/150 ML 750 MG/150 ML BAG IVPB SCH (17:00)
== END 2018-09-11 18:12 | DRG 856 ==
LOC: 2ANU → ICNU 09-06 10:42 → 2NNU 09-08 14:16
PROVIDERS: ADMIT Student in an Organized Health Care Education/Training Program; ATTEND Student in an Organized Health Care Education/Training Program